=== PATIENT | male | born 1990 | race Caucasian/White ===

== ENCOUNTER 2018-10-27 14:26 | Emergency (ER) | payer MEDICAID, SELFPAY ==
--- NOTE | 2018-10-27 14:33 | DI.CT_ITS ---
SYMPTOMS/DIAGNOSIS: TRAUMA CRANIAL CT (WITHOUT CONTRAST): A noncontrast cranial CT was performed. The ventricular system is normal in appearance. There is no evidence of an intracranial mass lesion. There is no evidence of a subdural or epidural hematoma. No focal areas of decreased attenuation are seen. CONCLUSION: Normal noncontrast Cranial CT. CERVICAL SPINE CT: CT examination of the cervical spine was performed utilizing multi-slice acquisition and multi-planar reconstruction. Incidental note is made of multiple mildly enlarged lymph nodes bilaterally throughout the cervical region. No gross cervical disc herniation by CT criteria. The visualized lung apices are clear. The tracheolaryngeal structures appear intact. No evidence of cervical fracture or dislocation. CONCLUSION: No evidence of acute cervical injury. CHEST, ABDOMEN AND PELVIS CT: CT examination of the chest, abdomen and pelvis was performed during the intravenous infusion of Omnipaque 350. The tracheobronchial tree and esophagus appear intact. The mediastinal vascular structures are normal in appearance. There is no evidence of hilar or mediastinal adenopathy. The pulmonary parenchyma and pleurae appear intact with no evidence of a pulmonary or pleural mass. The chest wall is normal in appearance. The liver and spleen are normal in size and shape with no evidence of any focal defects. There is no evidence of biliary dilatation. The gallbladder has a normal CT appearance. The pancreas appears intact and is not enlarged. There is no evidence of retroperitoneal lymphadenopathy. The bladder appears intact. The kidneys show bilateral function and there is no evidence of a renal mass. The vascular structures appear intact. There is no evidence of a mass in the pelvis. There is no evidence of a fluid collection or adenopathy. CONCLUSION: Normal chest, abdomen and pelvis CT.
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
[2018-10-27 14:34] VITALS: BP 116/84; PULSE 83; RESP 96; TEMP 36.8; O2SAT 97
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
[2018-10-27 14:54] LABS: Abs Immature Grans 0.01 k/cumm (0.0-0.09); Absolute Basophil Count 0.02 k/cumm (0.0-0.2); Absolute Eosinophil Count 0.13 k/cumm (0.0-0.7); Absolute Lymphocyte Count 2.98 k/cumm (1.2-3.4); Absolute Neutrophil Count 4.43 k/cumm (1.2-6.7); Basophils % 0.2; Eosinophils % 1.6; HCT 38.6 % (40.0-50.0); HGB 13.3 g/dL (13.5-17.5); Immature Grans % 0.1; Lymphocytes % 36.5; Mean Corp. HGB Concentration 34.5 g/dL (32.0-36.0); Mean Corpuscular Hemoglobin 32.2 pg (27.0-33.0); Mean Corpuscular Volume 93.5 fL (80-95); Mean Platelet Volume 10.2 fL (8.0-11.0); Monocytes % 7.3; Neutrophils % 54.3; Platelet Count 218 x1000/uL (130-400); RBC 4.13 m/cumm (4.50-6.00); White Blood Cell Count 8.17 k/cumm (4.4-10.8)
[2018-10-27 15:07] LABS: ALT 15 U/L (12-78); AST 13 U/L (15-37); Albumin 3.6 g/dL (3.4-5.0); Alkaline Phosphatase 70 U/L (46-116); Anion Gap 7.4 mmol/L (3-11); BUN 13 mg/dL (7-18); Bilirubin, Total 0.2 mg/dL (0.2-1.0); CO2 30.6 mmol/L (21.0-32.0); CREATININE 1.08 mg/dL (0.70-1.30); Calcium 8.9 mg/dL (8.5-10.1); Chloride 101 mmol/L (98-107); Glucose 89 mg/dL (70-100); Potassium 3.8 mmol/L (3.5-5.1); Sodium 139 mmol/L (136-145); Total Protein 6.8 g/dL (6.4-8.2)
[2018-10-27] MEDS: Omnipaque 350 MG/ML 100 ML BTL IJ (15:11)
[2018-10-27] MEDS: Ondansetron 4 MG/2 ML VIAL IVP (15:20)
[2018-10-27] MEDS: Ketorolac 30 MG/ML VIAL IVP (15:21)
[2018-10-27 15:46] LABS: ETHANOL BLOOD < 3.0 mg/dL (<3)
[2018-10-27 16:13] VITALS: BP 116/84; PULSE 83; RESP 96; TEMP 36.8
== END 2018-10-27 16:27 | disposition home or self-care (01) ==
PROVIDERS: Emergency Provider Nurse Practitioner Family; PCP Family Medicine
DX: S06.0X0A Concussion without loss of consciousness, initial encounter (principal); M54.2 Cervicalgia; V44.5XXA Car driver injured in collision with heavy transport vehicle or bus in traffic accident, initial encounter
CPT/HCPCS: 36415; 74177; 80053; 96374; 96375; 99285; 70450; 71260; 72125; 80320; 85025; 99284; J1885; J2405; J3490

== ENCOUNTER 2019-11-01 15:08 | Emergency (ER) | payer MEDICAID, SELFPAY ==
[2019-11-01] VITALS (23 sets, daily range): BP systolic 116–121; BP diastolic 76–78; PULSE 68–101; RESP 8–23; TEMP 36.7; O2SAT 94–99
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
[2019-11-01 15:29] LABS: Abs Immature Grans 0.02 k/cumm (0.0-0.09); Absolute Basophil Count 0.04 k/cumm (0.0-0.2); Absolute Eosinophil Count 0.02 k/cumm (0.0-0.7); Absolute Lymphocyte Count 2.05 k/cumm (1.2-3.4); Absolute Monocyte Count 0.51 k/cumm (0.11-0.7); Absolute Neutrophil Count 5.17 k/cumm (1.2-6.7); Basophils % 0.5; Eosinophils % 0.3; HCT 47.1 % (40.0-50.0); Immature Grans % 0.3 %; Lymphocytes % 26.2; Mean Corpuscular Hemoglobin 29.8 pg (27.0-33.0); Mean Corpuscular Volume 87.7 fL (80-95); Mean Platelet Volume 10.2 fL (8.0-11.0); Monocytes % 6.5; Neutrophils % 66.2; Platelet Count 233 x1000/uL (130-400); RBC 5.37 m/cumm (4.50-6.00); RBC Distribution Width 13.9 % (11.8-14.1); White Blood Cell Count 7.81 k/cumm (4.4-10.8)
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
[2019-11-01 15:37] LABS: Bilirubin Small (Negative); Blood Negative (Negative); Clarity Clear (Clear); Glucose Negative (Negative); Ketones 15 mg/dL (Negative); Leukocyte Esterase Negative (Negative); Nitrite Negative (Negative); Specific Gravity 1.025 (1.005-1.025); pH 6.5 (5-8)
[2019-11-01 15:41] LABS: Lipase 80 U/L (73-393)
[2019-11-01 15:43] LABS: INR 1.1 (0.9-1.1); PTT Activated 27.1 sec (21.0-31.4); Prothrombin Time 10.8 sec (9.3-11.0)
[2019-11-01 15:46] LABS: *AMPHETAMINES SCREEN URINE Negative (Negative); *BARBITURATES SCREEN URINE Negative (Negative); *BENZODIAZEPINES SCREEN URINE Negative (Negative); Cannabinoids THC POSITIVE (Negative); Cocaine Screen,Urine POSITIVE (Negative); METHADONE URINE SCREEN POSITIVE (Negative); OPIATES URINE SCREEN Negative (Negative)
[2019-11-01 15:46] LABS: ALT 23 U/L (16-63); AST 21 U/L (15-37); Albumin 4.5 g/dL (3.4-5.0); Alkaline Phosphatase 92 U/L (46-116); Anion Gap 13.1 mmol/L (3-11); BUN 17 mg/dL (7-18); Bilirubin, Total 0.5 mg/dL (0.2-1.0); CO2 29.9 mmol/L (21.0-32.0); CREATININE 1.37 mg/dL (0.70-1.30); Calcium 9.2 mg/dL (8.5-10.1); Chloride 98 mmol/L (98-107); Glucose 117 mg/dL (74-106); Potassium 4.2 mmol/L (3.5-5.1); Sodium 141 mmol/L (136-145); Total Protein 8.3 g/dL (6.4-8.2)
[2019-11-01 15:47] LABS: Tricyclic Antidepressants Negative (Negative)
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
[2019-11-01 15:56] LABS: ETHANOL BLOOD < 3.0 mg/dL (<3)
[2019-11-01] MEDS: Omnipaque 350 MG/ML 100 ML BTL IJ (15:56)
[2019-11-01 15:57] LABS: Bacteria Few HPF (Negative); C & S Indicated? No; Casts Negative LPF (Negative); Crystals Negative HPF (Negative); Epithelial Cells Few HPF (Negative); Mucus Moderate (Negative)
[2019-11-01] MEDS: Normal Saline 1,000 ML 1000 ML IV (16:05)
[2019-11-01] MEDS: Acetaminophen 500 MG TAB 1000 MG PO (17:15)
[2019-11-01] MEDS: Ibuprofen 800 MG TAB PO (17:16)
[2019-11-01] MEDS: Lidocaine 5% Patch 1 PATCH TP (17:16)
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
== END 2019-11-01 18:39 | disposition home or self-care (01) ==
PROVIDERS: Emergency Provider Student in an Organized Health Care Education/Training Program; PCP Family Medicine
DX: S01.01XA Laceration without foreign body of scalp, initial encounter (principal); S22.070A Wedge compression fracture of T9-T10 vertebra, initial encounter for closed fracture; V44.5XXA Car driver injured in collision with heavy transport vehicle or bus in traffic accident, initial encounter; R40.20 Unspecified coma; M54.2 Cervicalgia
CPT/HCPCS: 12001; 36415; 74177; 80053; 80307; 83690; 96360; 99285; 70450; 71260; 72125; 80320; 81003; 81015; 85025; 85610; 85730; J3490

== ENCOUNTER 2020-02-29 11:13 | Outpatient (REF) | payer MEDICAID, SELFPAY ==
[2020-02-29 12:18] LABS: ALT 21 U/L (16-63); AST 26 U/L (15-37); Albumin 4.2 g/dL (3.4-5.0); Alkaline Phosphatase 96 U/L (46-116); BUN 11 mg/dL (7-18); Bilirubin, Total 0.4 mg/dL (0.2-1.0); CREATININE 1.29 mg/dL (0.70-1.30); Chloride 102 mmol/L (98-107); Glucose 84 mg/dL (74-106); Potassium 4.9 mmol/L (3.5-5.1); Sodium 138 mmol/L (136-145); Total Protein 7.3 g/dL (6.4-8.2)
[2020-02-29 12:26] LABS: Absolute Basophil Count 0.02 k/cumm (0.0-0.2); Absolute Eosinophil Count 0.16 k/cumm (0.0-0.7); Absolute Lymphocyte Count 3.42 k/cumm (1.2-3.4); Absolute Monocyte Count 0.66 k/cumm (0.11-0.7); Absolute Neutrophil Count 3.14 k/cumm (1.2-6.7); Basophils % 0.3; Eosinophils % 2.2; HCT 43.1 % (40.0-50.0); HGB 14.6 g/dL (13.5-17.5); Lymphocytes % 46.2; Mean Corp. HGB Concentration 33.9 g/dL (32.0-36.0); Mean Corpuscular Hemoglobin 30.9 pg (27.0-33.0); Mean Corpuscular Volume 91.1 fL (80-95); Monocytes % 8.9; Neutrophils % 42.4; Platelet Count 249 x1000/uL (130-400); RBC 4.73 m/cumm (4.50-6.00); RBC Distribution Width 13.8 % (11.8-14.1)
[2020-03-01 11:02] LABS: HIV-1/2 Ag & Ab Screen Negative (Negative)
[2020-03-03 09:57] LABS: Hepatitis B Surface Ag Negative (Negative)
[2020-03-03 10:59] LABS: Hepatitis C Ab w Rflx HCV PCR Negative (Negative)
[2020-03-03 14:49] LABS: Syphilis Serology (RPR) Negative (Negative)
== END 2020-02-29 11:33 ==
LOC: LBN 11:13
PROVIDERS: PCP Family Medicine; Visit Provider Nurse Practitioner Family
DX: F11.20 Opioid dependence, uncomplicated (principal); Z79.899 Other long term (current) drug therapy; Z11.3 Encounter for screening for infections with a predominantly sexual mode of transmission; Z11.4 Encounter for screening for human immunodeficiency virus [HIV]; Z11.59 Encounter for screening for other viral diseases
CPT/HCPCS: 36415; 80053; 85027; 86803; 87340; 87389; 82105; 82140; 84630; 85025; 85610; 86592

== ENCOUNTER 2023-07-08 18:25 | Emergency (ER) | payer MEDICAID, SELFPAY ==
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
[2023-07-08 18:29] VITALS: BP 125/93; PULSE 103; RESP 16; TEMP 36.9; O2SAT 98
[2023-07-08] MEDS: Ibuprofen 600 MG TAB PO (19:01)
[2023-07-08] MEDS: Doxycycline Hyclate 100 MG CAP PO (19:01)
== END 2023-07-08 19:01 | disposition home or self-care (01) ==
PROVIDERS: Emergency Provider Emergency Medicine; PCP Family Medicine
DX: L03.114 Cellulitis of left upper limb (principal)
CPT/HCPCS: 76882; 99284

== ENCOUNTER 2024-04-06 11:14 | Emergency (ER) | payer MEDICAID, SELFPAY ==
[2024-04-06 11:25] VITALS: BP 110/74; PULSE 89; RESP 16; TEMP 37; O2SAT 97
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
== END 2024-04-06 13:04 | disposition home or self-care (01) ==
PROVIDERS: Emergency Provider Physician Assistant; PCP Family Medicine
DX: L97.828 Non-pressure chronic ulcer of other part of left lower leg with other specified severity (principal); L53.9 Erythematous condition, unspecified; F19.10 Other psychoactive substance abuse, uncomplicated; F17.210 Nicotine dependence, cigarettes, uncomplicated
CPT/HCPCS: 99283

== ENCOUNTER 2024-11-18 11:15 | Emergency (ER) | payer MEDICAID, SELFPAY ==
[2024-11-18 11:26] VITALS: BP 123/81; PULSE 86; RESP 16; TEMP 36.5; O2SAT 97
[2024-11-18 11:30] VITALS: BP 123/81; PULSE 86; RESP 16; TEMP 36.5; O2SAT 97
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
== END 2024-11-18 12:05 | disposition home or self-care (01) ==
PROVIDERS: Emergency Provider Emergency Medicine; PCP Family Medicine
DX: L03.211 Cellulitis of face (principal); I10 Essential (primary) hypertension; F17.210 Nicotine dependence, cigarettes, uncomplicated
CPT/HCPCS: 99283

== ENCOUNTER 2025-02-20 13:32 | Emergency (ER) | payer MEDICAID, SELFPAY ==
[2025-02-20 13:43] VITALS: BP 105/73; PULSE 71; RESP 20; TEMP 36.6; O2SAT 98
--- NOTE | 2025-02-20 13:45 | DI.RAD_ITS ---
Exam(s) XR ANKLE RT COMPLETE XR FOOT RT COMPLETE EXAM: XR ANKLE RT COMPLETE CLINICAL HISTORY: lateral pain and swelling. TECHNIQUE: 2D digital imaging was performed. Three views of the ankle and foot. COMPARISON: CR RIGHT TIB/FIB from 05/06/2015 CR XR FOOT RT COMPLETE from 02/20/2025 FINDINGS: BONES: Nondisplaced oblique fracture through the lateral malleolus. No additional fractures are iden tified in the ankle or foot.. No bony destructive lesion is seen. JOINTS: The ankle mortise is normally aligned. SOFT TISSUE: Swelling around the malleoli, greater laterally. IMPRESSION: Nondisplaced fracture of the lateral malleolus. No ankle mortise widening. No foot fractures. DATA REPOSITORY: RADIATION DOSE DELIVERED:
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
[2025-02-20] MEDS: Ibuprofen 600 MG TAB PO (14:00)
[2025-02-20] MEDS: Acetaminophen 500 MG TAB 1000 MG PO (14:00)
== END 2025-02-20 15:11 | disposition home or self-care (01) ==
PROVIDERS: Emergency Provider Emergency Medicine; PCP Family Medicine
DX: S82.64XA Nondisplaced fracture of lateral malleolus of right fibula, initial encounter for closed fracture (principal); X58.XXXA Exposure to other specified factors, initial encounter
CPT/HCPCS: 99284; 99283; 29505; 73610; 73630

== ENCOUNTER 2025-04-10 10:43 | Inpatient (IN) | payer MEDICAID, SELFPAY ==
[2025-04-10] VITALS (26 sets, daily range): BP systolic 106–140; BP diastolic 65–86; PULSE 72–100; RESP 17–34; TEMP 37.2–38.9; O2SAT 82–99
--- NOTE | 2025-04-10 11:15 | DI.RAD_ITS ---
Exam(s) XR ANKLE RT COMPLETE EXAM: XR ANKLE RT COMPLETE CLINICAL HISTORY: pain lateral, recent fx, fell today, ? refracture. TECHNIQUE: 2D digital imaging was performed of the right ankle. Three images were obtained. AP, lateral and oblique views were obtained. COMPARISON: CR XR ANKLE RT COMPLETE from 02/20/2025 FINDINGS: BONES: There is again seen a distal right fibular fracture. There has been some widening and posterior and lateral displacement of the fracture compared to the initial examination. Callus formation has developed about the fracture consistent with some interval healing. No new fractures identified. No bony destructive lesion is seen. JOINTS: The ankle mortise is normally aligned. SOFT TISSUE: There is mild soft tissue swelling about the ankle laterally. IMPRESSION: Healing distal right fibular fracture. DATA REPOSITORY: RADIATION DOSE DELIVERED:
[2025-04-10] MEDS: Acetaminophen 325 MG TAB 650 MG PO (11:29)
[2025-04-10] MEDS: Cephalexin 500 MG CAP PO (11:30)
[2025-04-10] MEDS: Sulfameth/Trimeth DS TAB 1 TAB PO (11:30)
[2025-04-10] MEDS: MORPHine IR 15 MG TAB 30 MG PO (11:34)
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
[2025-04-10 13:45] LABS: Abs Immature Grans 0.12 10^3/uL (0.0-0.06); HCT 39.4 % (40.0-50.0); HGB 13.2 g/dL (13.5-17.5); Immature Grans % 0.7 %; MCH 30.6 pg (27.0-33.0); MCHC 33.5 % (32.0-36.0); MCV 91 fL (80-95); MPV 11.4 fL (8.0-11.0); Platelet Count 279 10^3/uL (130-400); RBC 4.31 10^6/uL (4.36-5.78); RDW 14.6 % (11.8-14.1); RDW-SD 49.4 fL; WBC 17.75 10^3/uL (4.4-10.8)
[2025-04-10 13:56] LABS: ALT 728 U/L (16-63); AST 212 U/L (15-37); Albumin 3.2 g/dL (3.4-5.0); Alkaline Phosphatase 347 U/L (46-116); Anion Gap 11.5 mmol/L (3-11); BUN 15 mg/dL (7-18); Bilirubin, Total 1.3 mg/dL (0.2-1.0); CO2 26.5 mmol/L (21.0-32.0); Calcium 9.2 mg/dL (8.5-10.1); Chloride 94 mmol/L (98-107); Estimated GFR 81.38 (mL/min/1.73m2); Glucose 107 mg/dL (74-106); Potassium 3.7 mmol/L (3.5-5.1); Sodium 132 mmol/L (136-145); Total Protein 7.2 g/dL (6.4-8.2)
[2025-04-10] MEDS: Ketorolac 15 MG/ML VIAL IVP (14:11)
[2025-04-10] MEDS: Lactated Ringers 500 ML 1000 ML IV (14:11)
[2025-04-10 14:26] LABS: RBC Morphology Normal
[2025-04-10] MEDS: VANCOMYCIN/WATER (PEG) 1.25 GM/250 ML BAG IVPB (15:13)
[2025-04-10 15:17] LABS: Acetaminophen 2 ug/mL (10-30)
[2025-04-10] MEDS: Enoxaparin 40 MG/0.4 ML SYR SC (16:18)
--- NOTE | 2025-04-10 17:08 | W.PC.ACHO ---
Registration Status: REG ER Primary Language: Preferred Language: German ED Information & Data Chief Complaint Fever 04/10/25 12:56 Other Complaint Orthopedic 04/10/25 10:43 Triage Note Pt presents via [facility] from 04/10/25 10:43 home. Rt ankle injury from a fall, R ear also infected. Medical / Surgical History (Last Reviewed 04/10/25 @ 14:29 by Baljinder Monson MD) Frequent headaches Tobacco use Anxiety Hypertension Insomnia Most Recent Vital Signs Temperature 37.2 C 04/10/25 15:53 Temperature Source Oral 04/10/25 15:53 Pulse 82 04/10/25 15:53 Pulse Rhythm Regular 04/10/25 15:53 Pulse 99 H 04/10/25 11:20 Respiratory Rate 25 H 04/10/25 12:28 Blood Pressure 119/84 04/10/25 15:53 Blood Pressure Mean 95 04/10/25 15:53 Blood Pressure Position Supine 04/10/25 10:43 Pulse Oximetry 82 L 04/10/25 15:53 Oxygen Delivery Method Room Air 04/10/25 10:43 Oxygen Flow Rate 0 04/10/25 10:43 Pain Level 6 04/10/25 15:53 Allergies No Known Allergies Allergy (Unverified 04/10/25 10:48) Precautions Isolation Standard precaution 04/10/25 10:48 Active Medications Generic Name Dose Route Start Last Admin Trade Name Freq PRN Reason Stop Dose Admin Enoxaparin Sodium 40 mg 04/10/25 16:00 04/10/25 16:18 Enoxaparin 40 Mg/0.4 Ml Syr SC 40 mg Q24H DEVANG Administration IV IV Catheter Type [Right Saline Lock Forearm] IV Catheter Type [Left Saline Lock Antecubital] IV Catheter Gauge [Right 18 Forearm] IV Catheter Gauge [Left 18 Antecubital] Diet Orders Category Date Time Status Regular/Normal [DIET] Nutrition 04/10/25 Dinner Active Diagnostics 04/10/25 04/10/25 04/10/25 Range/Units 14:34 13:56 10:52 WBC 17.75 H (4.4-10.8) 10^3/uL RBC 4.31 L (4.36-5.78) 10^6/uL Hgb 13.2 L (13.5-17.5) g/dL Hct 39.4 L (40.0-50.0) % MCV 91 (80-95) fL MCH 30.6 (27.0-33.0) pg MCHC 33.5 (32.0-36.0) % RDW 14.6 H (11.8-14.1) % Plt Count 279 (130-400) 10^3/uL MPV 11.4 H (8.0-11.0) fL Immature Gran % 0.7 % Neutrophils % 81.5 % Lymphocytes % 7.4 % Monocytes % 9.5 % Eosinophils % 0.7 % Basophils % 0.2 % Nucleated RBC % 0.0 (0.0-0.3) % Absolute Neutrophils 14.47 H (1.2-6.7) 10^3/uL Absolute Lymphocytes 1.31 (1.2-3.4) 10^3/uL Absolute Monocytes 1.69 H (0.1-0.8) 10^3/uL Absolute Eosinophils 0.12 (0.0-0.7) 10^3/uL Absolute Basophils 0.04 (0.0-0.2) 10^3/uL RBC Morphology Normal VBG Lactate 1.3 (<or=2.0) mmol/L Sodium 132 L (136-145) mmol/L Potassium 3.7 (3.5-5.1) mmol/L Chloride 94 L (98-107) mmol/L Carbon Dioxide 26.5 (21.0-32.0) mmol/L Anion Gap 11.5 H (3-11) mmol/L BUN 15 (7-18) mg/dL Creatinine 1.2 (0.70-1.30) mg/dL Est GFR (CKD-EPI 2020) 81.38 (mL/min/1.73m2) Glucose 107 H (74-106) mg/dL Calcium 9.2 (8.5-10.1) mg/dL Total Bilirubin 1.3 H (0.2-1.0) mg/dL AST 212 H (15-37) U/L ALT 728 H (16-63) U/L Alkaline Phosphatase 347 H (46-116) U/L Total Protein 7.2 (6.4-8.2) g/dL Albumin 3.2 L (3.4-5.0) g/dL Acetaminophen 2 (10-30) ug/mL Hepatitis A IgM Ab Pending Hep Bs Antigen Pending Hep B Core Total Ab Pending Hepatitis C Antibody Pending 04/10/25 10:52 Blood Culture - Pending Blood 04/10/25 11:15 Blood Culture - Pending Blood Intake and Output - 24 Hour Total 04/10/25 10:30 thru 04/10/25 16:52 Intake Total 750 Balance 750 Weight 67.177 kg Intake: IV 750 Falls Risk Assessment History of Falls No History 04/10/25 10:48 Contributing Factors No Factors 04/10/25 10:48 Ambulatory Aids Independent 04/10/25 10:48 Tubes/Lines W/no contributing factors 04/10/25 10:48 Gait Evaluation No gait disturbance 04/10/25 10:48 Cognition No cognitive impairment 04/10/25 10:48 Fall Total Score 10 04/10/25 10:48 Level of Risk Standard/Low Risk 04/10/25 10:48 v v v v v v v v v Sending and/or Receiving Nurses: Please use comment section below to note any information pertinent to the patient hand-off not included above. Information / Comments: Report received all questions answered. Report received from: report received from Yusuf Olmos, RN @ [id number]
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
[2025-04-10] MEDS: Acetaminophen 325 MG TAB PO (20:08)
[2025-04-10] MEDS: Normal Saline Flush 10 ML SYR IVP (20:09)
--- NOTE | 2025-04-10 20:15 | RT.EKG_ITS ---
APPROVED REPORT Exam: Resting ECG Reason for Exam: chest pain Patient Location: I HR:97 bpm ECG Measurements Heart Rate 97 AXIS ND 119 P 47 QRSd 94 QRS 77 QT 381 T 6 QTc 484 Conclusion Sinus rhythm...normal P axis, V-rate 50- 99 Borderline short ND interval...ND int <120mS LVH by voltage...R >2.60mV in V5 or V6 Borderline T abnormalities, inferior leads...T flat/neg, II III aVF
[2025-04-10] MEDS: cefTRIAXone 1 GM/50 ML BAG IVPB (20:54)
[2025-04-10] MEDS: ACETAMINOPHEN 1,000 MG/100 ML BAG 400 MG IVPB (20:54)
--- NOTE | 2025-04-10 20:57 | DI.RAD_ITS ---
Exam(s) XR PORTABLE CHEST AP EXAM: XR PORTABLE CHEST AP CLINICAL HISTORY: chest pain/sepsis TECHNIQUE: 2D digital imaging was performed of the chest. One image was obtained. An AP view was obtained. COMPARISON: No exams were available for comparison FINDINGS: MEDIASTINUM: Normal. HEART: Normal. PULMONARY VASCULATURE: Normal. LUNGS: There opacity seen in the right mid lung laterally and the left lung base. PLEURAL SPACE: No pleural effusion or pneumothorax. BONE:Within normal limits for the patient's age. OTHER FINDINGS:Normal. IMPRESSION: 1. Bilateral pulmonary opacities. There is a more rounded opacity seen in the right mid lung. While this may represent an infectious process, pulmonary mass cannot be entirely excluded. Follow-up with repeat chest x-ray following treatment or CT scan of the chest. 2. The preliminary [facility] report was reviewed. DATA REPOSITORY: RADIATION DOSE DELIVERED:
[2025-04-10 21:15] LABS: Troponin I 4 ng/L (<or=76)
[2025-04-10 21:16] LABS: METHADONE URINE SCREEN Negative (Negative)
[2025-04-10 21:39] LABS: Cannabinoids THC Positive (Negative)
--- NOTE | 2025-04-10 22:02 | DI.[facility]_ITS ---
PROCEDURE INFORMATION: Exam: XR Chest Exam date and time: 04/10/2025 8:50 PM Age: 34 years old Clinical indication: Chest pressure; Chest pain/sepsis TECHNIQUE: Imaging protocol: Radiologic exam of the chest. Views: 1 view. COMPARISON: CT CHEST/ABD/PEL W 11/01/2019 3:47 PM FINDINGS: Lungs: Ill-defined opacity identified in the right mid lung with a an underlying mass not excluded. CT scan of the chest is recommended for further evaluation. Left basilar discoid atelectatic changes. Pleural spaces: Unremarkable. No pleural effusion. No pneumothorax. Heart/Mediastinum: Unremarkable. No cardiomegaly. Bones/joints: Unremarkable. IMPRESSION: 1. Ill-defined oval opacity identified in the right mid lung with a an underlying mass not excluded. CT scan of the chest is recommended for further evaluation. 2. Left lower lobe discoid atelectatic changes. Dictated and Authenticated by: Gera Brewer MD. Orderin Luciano Wilson MD
[2025-04-10 23:38] LABS: Hepatitis A Antibody IgM Negative (Negative); Hepatitis C Ab w Rflx HCV PCR Reactive (Negative)
--- NOTE | 2025-04-11 | DI.RAD_ITS ---
Exam(s) XR MASTOIDS EXAM: XR MASTOIDS CLINICAL HISTORY: mastoiditis right. TECHNIQUE: 2D digital imaging was performed. COMPARISON: No exams were available for comparison FINDINGS: 3 views There are no obvious mastoid effusions. No obvious bone dehiscence. IMPRESSION: No obvious radiographic findings in the mastoid air cells. If clinically indicated follow-up CT scan can be performed for added sensitivity Findings discussed with hospitalist provider 04/11/2025 at 6:20 p.m. DATA REPOSITORY: RADIATION DOSE DELIVERED:
--- NOTE | 2025-04-11 | DI.CT_ITS ---
Exam(s) CT CHEST WO EXAM: CT CHEST WO CLINICAL HISTORY: right mid lung opacity mass. TECHNIQUE: Multi planar reconstructions were performed. CONTRAST MATERIAL: None COMPARISON: CT CT CHEST/ABD/PEL W from 11/01/2019 CR,XR XR PORTABLE CHEST AP from 04/10/2025 FINDINGS: CHEST: LUNGS: There are multiple bilateral nodular infiltrates involving all lobes of both lungs with the exception of sparing of the right middle lobe. Many of these are located peripherally-pleural based and most exhibits some cavitation. The largest is in the left lower lobe, measures 3.3 x 2.8 by 2.8 cm and exhibits internal cavitation, similar to multiple others seen in both lung balderas. There are no associated pleural effusions. No significant focal findings in the trachea and mainstem bronchi and there is no bronchiectasis. MEDIASTINUM: There is no obvious hilar nor mediastinal adenopathy evident on this noninfused study. No supraclavicular nor axillary adenopathy. CARDIAC: Heart size is normal. There is no pericardial effusion.Caliber of the thoracic aorta is within normal limits. VISUALIZED UPPER ABDOMEN: There is no ascites in the upper abdomen. No obvious adrenal masses nor splenomegaly. OSSEOUS: No fractures. There are no lytic nor blastic osseous lesions evident.The pleural based cavitated infiltrates are not associated with overlying rib destruction. IMPRESSION: 1. There are multiple similar appearing partially cavitated nodular infiltrates throughout both lungs, 1 of these corresponding to the finding described in the right lung on chest x-ray performed 04/10/2025. The largest is actually in the left lower lobe and is pleural based, measuring 33 x 28 x 28 mm. If clinically indicated this would be accessible for CT-guided biopsy by Interventional Radiology service. With respect to the etiology of these multiple bilateral nodular infiltrates, given their appearance and patient's age the etiology is most probably infectious, as opposed to neoplastic. Report called by myself to hospitalist 04/11/2025 at 6:15 p.m. RADIATION DOSE DELIVERED: 177.59mGy.cm Total DLP DATA REPOSITORY: All CT scans at this facility are submitted to the National Radiology Data Registry (NRDR) Dose Index Registry (DIR) with the [employer] (A[employer]). RADIATION OPTIMIZATION: All CT scans at this facility use at least one of these dose optimization techniques: automated exposure control; mA and/or kV adjustment per patient size (includes targeted exams where dose is matched to clinical indication); or iterative reconstruction.
[2025-04-11 00:48] VITALS: TEMP 37.7
[2025-04-11] MEDS: Ketorolac 15 MG/ML VIAL IVP ×3 (02:40→23:30)
--- NOTE | 2025-04-11 06:45 | PGE_ITS ---
Date of Service Date of service: 04/11/25 Time of Service: 11:15 Assessment and Plan Assessment and plan (1) Sepsis: Status: Acute Assessment and plan: On admission , the patient met sepsis criteria with a fever (38.5?C), elevated white blood cell count (17.75), tachycardia (pulse 94 bpm), elevated respiratory rate (32), and localized infection (right mastoid area /postauricular cellulitis). This is a likely case of sepsis stemming from cellulitis. Given the signs of systemic involvement, the patient requires aggressive management. -Trend WBC and inflammatory markers- further imaging if trending up -XR of mastoid bone and chest CT - As per results of new imaging discussed with Dr. Garcia at 18:11 today- will consider IR at [facility] consultation,ordering Quantiferon &HIV, consider contrast infused head CT and temporal bone CT - Continue vancomycin and Ceftriaxone. - Continue IV fluids (normal saline) to support circulatory volume. - Blood cultures: Monitor pending blood culture results to guide further antibiotic adjustments. -Close monitoring: Frequent reassessment of vital signs, including temperature, pulse, and respiratory rate. (2) Cellulitis of scalp: Status: Acute Assessment and plan: As above Surgical consult is abscess of the mastoid bone as per imaging (3) Closed fracture of distal end of right fibula: Status: Acute Assessment and plan: History of a right distal fibular fracture sustained a month ago. X-ray in the ED reveals healing with displacement and callus formation but no new fractures. He has reinjured the ankle with pain, swelling, and decreased ROM following a dog fight. -management with orthopedic boot and crutches. -Orthopedics follow-up outpatient for reassessment of fracture and appropriate management. -Encourage rest and avoid weight-bearing on the right ankle. PT consult (4) Abnormal transaminases: Status: Acute Assessment and plan: The patient?s laboratory results reveal elevated AST, ALT, alkaline phosphatase, and total bilirubin. The patient is not complaining of abdominal pa in, but the elevated transaminases may indicate either a hepatic injury related to sepsis or possibly a pre-existing liver issue (e.g., alcohol-related liver disease, hepatitis). -Hepatitis panel pending -Monitor LFT' s -Consultation: Consider hepatology/GI consultation for further evaluation if liver function worsens. -Continue supportive care: Maintain IV fluids and monitor for signs of hepatic failure (jaundice, confusion). (5) Pain: Status: Acute Assessment and plan: The patient reports significant pain (level 10/10) from his right ankle injury and cellulitis. -PRN Acetaminophen for mild to moderate pain. -Opioid analgesia: to be limited d/t Hx opioids misuse. Morphine IR was administered in the ED, but future use should be minimized. -IV Toradol: Continue IV Toradol for pain relief and anti-inflammatory effect. -Reassessment: Regularly assess pain control and adjust medications accordingly. (6) Opioid use disorder: Status: Acute Assessment and plan: The patient has a prior history of opioid use disorder, though he denies recent opioid use. Pain management will need to be carefully balanced with his history to avoid relapse into opioid misuse. Non-opioid pain management: Prioritize acetaminophen, NSAIDs (e.g., Toradol), and local modalities over opioids for pain control. Psychiatric consultation: outpatient referral with addiction psychiatry discussed with Dr. Rainey Subjective Subjective Patient reports: no new complaints, still having pain, tolerating liquids well, tolerating a regular diet (decreased intake ), voiding w/o difficulty, bowel movement and other (chills, night sweat, fatigue); denies feels better, diarrhea, nausea, vomiting, shortness of breath or fever Exam Narrative Exam Narrative: Right mastoid bone area lesion - scabbed over with tenderness, upper mastoid w/o tenderness, erythema and minimal fluid filled superficial blisters, alert and oriented X 3 , no neurological deficit, clear lungs, S1 S2 regular, abdomen non-distended, soft , non-tender, moves all 4 est, no CVA tenderness, Objective Last Vital Signs Temp 37.7 C H 04/11/25 00:48 Pulse 99 H 04/10/25 19:52 Resp 22 04/10/25 19:52 BP 106/66 04/10/25 19:52 Pulse Ox 97 04/10/25 19:52 Laboratory Results - last 24 hr 04/10/25 04/10/25 04/10/25 10:52 13:56 14:34 WBC 17.75 H RBC 4.31 L Hgb 13.2 L Hct 39.4 L MCV 91 MCH 30.6 MCHC 33.5 RDW 14.6 H Plt Count 279 MPV 11.4 H Immature Gran % 0.7 Neutrophils % 81.5 Lymphocytes % 7.4 Monocytes % 9.5 Eosinophils % 0.7 Basophils % 0.2 Nucleated RBC % 0.0 Absolute Neutrophils 14.47 H Absolute Lymphocytes 1.31 Absolute Monocytes 1.69 H Absolute Eosinophils 0.12 Absolute Basophils 0.04 RBC Morphology Normal VBG Lactate 1.3 Sodium 132 L Potassium 3.7 Chloride 94 L Carbon Dioxide 26.5 Anion Gap 11.5 H BUN 15 Creatinine 1.2 Est GFR (CKD-EPI 2020) 81.38 Glucose 107 H Calcium 9.2 Total Bilirubin 1.3 H AST 212 H ALT 728 H Alkaline Phosphatase 347 H Troponin I Total Protein 7.2 Albumin 3.2 L Urine Opiates Screen Urine Methadone Screen Acetaminophen 2 Ur Barbiturates Screen Ur Tricyclics Screen Ur Amphetamines Screen U Benzodiazepines Scrn Urine Cocaine Screen Ur THC Screen Hepatitis A IgM Ab Negative Hep Bs Antigen Negative Hep B Core Total Ab Negative Hepatitis C Antibody Reactive A 04/10/25 20:50 WBC RBC Hgb Hct MCV MCH MCHC RDW Plt Count MPV Immature Gran % Neutrophils % Lymphocytes % Monocytes % Eosinophils % Basophils % Nucleated RBC % Absolute Neutrophils Absolute Lymphocytes Absolute Monocytes Absolute Eosinophils Absolute Basophils RBC Morphology VBG Lactate Sodium Potassium Chloride Carbon Dioxide Anion Gap BUN Creatinine Est GFR (CKD-EPI 2020) Glucose Calcium Total Bilirubin AST ALT Alkaline Phosphatase Troponin I 4 Total Protein Albumin Urine Opiates Screen Positive Urine Methadone Screen Negative Acetaminophen Ur Barbiturates Screen Negative Ur Tricyclics Screen Negative Ur Amphetamines Screen Negative U Benzodiazepines Scrn Positive Urine Cocaine Screen Positive Ur THC Screen Positive Hepatitis A IgM Ab Hep Bs Antigen Hep B Core Total Ab Hepatitis C Antibody Time Spent with Patient Time Spent with Patient: >50 minutes Time was spent: preparing to see the patient(eg.review tests), obtaining and/or reviewing separately otained hiistory, ordering medications,tests, procedures, referring, communicating with other health care transport nurse, indepentently interpreting results, counseling the patient and care coordination
[2025-04-11 07:25] LABS: Abs Immature Grans 0.16 10^3/uL (0.0-0.06); HCT 39.7 % (40.0-50.0); HGB 13.9 g/dL (13.5-17.5); Immature Grans % 0.8 %; MCH 30.9 pg (27.0-33.0); MCHC 35.0 % (32.0-36.0); MCV 88 fL (80-95); MPV 11.2 fL (8.0-11.0); Platelet Count 314 10^3/uL (130-400); RBC 4.50 10^6/uL (4.36-5.78); RDW 14.8 % (11.8-14.1); RDW-SD 48.2 fL; WBC 20.07 10^3/uL (4.4-10.8)
[2025-04-11 07:35] LABS: RBC Morphology Normal
[2025-04-11 07:42] LABS: Anion Gap 12.2 mmol/L (3-11); BUN 15 mg/dL (7-18); C-Reactive Protein 24.12 mg/dL (<or=0.5); CO2 25.8 mmol/L (21.0-32.0); Calcium 8.9 mg/dL (8.5-10.1); Chloride 99 mmol/L (98-107); Estimated GFR 114.93 (mL/min/1.73m2); Glucose 111 mg/dL (74-106); Magnesium 2.1 mg/dL (1.8-2.4); Potassium 3.3 mmol/L (3.5-5.1); Sodium 137 mmol/L (136-145)
[2025-04-11] MEDS: Normal Saline Flush 10 ML SYR IVP ×2 (08:13→20:02)
[2025-04-11 08:20] VITALS: BP 101/64; PULSE 81; RESP 16; TEMP 38.1; O2SAT 99
[2025-04-11] MEDS: VANCOMYCIN/WATER (PEG) 1.25 GM/250 ML BAG IVPB (09:05)
[2025-04-11] MEDS: Normal Saline 1,000 ML 125 ML IV ×2 (09:06→16:58)
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
[2025-04-11 11:36] LABS: HCV RNA Detection Quantitative 5790000 IU/mL (Undetected); HCV RNA Qualitative Detected (Undetected)
[2025-04-11 11:43] VITALS: BP 107/80; PULSE 94; RESP 18; TEMP 37.6; O2SAT 94
[2025-04-11] MEDS: cloNIDine 0.1 MG TAB PO ×2 (13:10→20:03)
[2025-04-11 14:19] VITALS: BP 96/58; PULSE 98; RESP 18; TEMP 37.9; O2SAT 99
[2025-04-11] MEDS: Enoxaparin 40 MG/0.4 ML SYR SC (16:00)
[2025-04-11 16:27] LABS: Vancomycin, Random 8.9 ug/mL
[2025-04-11] MEDS: cefTRIAXone 1 GM/50 ML BAG IVPB (20:03)
[2025-04-11 20:04] VITALS: BP 116/77; PULSE 92; RESP 18; TEMP 37.5; O2SAT 98
[2025-04-11 23:33] VITALS: BP 98/60; PULSE 80; RESP 20; TEMP 38.1; O2SAT 97
--- NOTE | 2025-04-12 | DI.CT_ITS ---
Exam(s) CT HEAD WO/W EXAM: CT HEAD WO/W CLINICAL HISTORY: AMS. TECHNIQUE: Imaging Protocol: Axial computed tomography images with coronal and sagittal reformatted images were created and reviewed. A pre and postcontrast CT brain was performed. CONTRAST MATERIAL: Intravenous: Omnipaque 350 contrast volume:[address] HEAD CERVICAL SPINE WO from 11/01/2019 FINDINGS: Ventricles and Extra axial spaces: Normal in size and morphology for the patient's age. Hemorrhage: None. Cerebral parenchyma: There is a normal carbajal-white matter differentiation. No evidence of an acute territorial infarct or mass effect. Enhancement: No suspicious enhancement. Dale of Velásquez: Unremarkable. Midline shift: None. Brainstem/Cerebellum: Normal. Calvarium: Normal. Visualized Paranasal sinuses/Mastoids: Clear. Soft tissues: There is soft tissue swelling over the right parietal and temporal bone. No focal fluid collection is seen to suggest an abscess. IMPRESSION: 1. No acute intracranial process or enhancing lesion. 2. Soft tissue swelling over the right parietal zoroastrian bones. This may be secondary to trauma. Please correlate clinically. An infectious or inflammatory process should also be considered. No focal fluid collection is seen to suggest an abscess. RADIATION DOSE DELIVERED: 2,049.12mGy.cm Total DLP 2,049.12mGy.cm Total DLP DATA REPOSITORY: All CT scans at this facility are submitted to the National Radiology Data Registry (NRDR) Dose Index Registry (DIR) with the [employer] (ACR). RADIATION OPTIMIZATION: All CT scans at this facility use at least one of these dose optimization techniques: automated exposure control; mA and/or kV adjustment per patient size (includes targeted exams where dose is matched to clinical indication); or iterative reconstruction.
--- NOTE | 2025-04-12 | DI.CT_ITS ---
Exam(s) CT TEMPORAL BONE W EXAM: CT TEMPORAL BONE W CLINICAL HISTORY: mastoiditis right. TECHNIQUE: Imaging Protocol: Axial computed tomography images with coronal and sagittal reformatted images were created and reviewed. CONTRAST MATERIAL: Intravenous: Omnipaque 350 Contrast volume:100 COMPARISON: CT CT HEAD CERVICAL SPINE WO from 11/01/2019 FINDINGS: Right Temporal Bone: The cochlea, vestibule, vestibular and cochlear aqueduct are normal. The facial nerve canal is well maintained. The semicircular canals are unremarkable. There is no evidence of dehiscence. The internal auditory canal is within normal limits. The scutum and tegmen are within normal limits. There is no evidence of otosclerosis. The external auditory canal and mastoid air cells are normal. The carotid canal and jugular foramen are within normal limits. The temporomandibular joint is unremarkable. Left Temporal Bone: The cochlea, vestibule, vestibular and cochlear aqueduct are normal. The facial nerve canal is well maintained. The semicircular canals are unremarkable. There is no evidence of dehiscence. The internal auditory canal is within normal limits. The scutum and tegmen are within normal limits. There is no evidence of otosclerosis. The external auditory canal and mastoid air cells are normal. The carotid canal and jugular foramen are within normal limits. The temporomandibular joint is unremarkable. There is soft tissue swelling over the right parietal and temporal bones. No focal fluid collection is seen to suggest an abscess. Differential considerations include infection/inflammation or soft tissue injury. IMPRESSION: 1. Normal CT of the temporal bones. 2. No evidence of mastoiditis or otitis media. 3. Soft tissue swelling over the right parietal bone and temporal bone. This may represent infection/inflammation or soft tissue injury. Please correlate clinically. 4. No focal fluid collection is seen to suggest an abscess. RADIATION DOSE DELIVERED: 2,049.12mGy.cm Total DLP DATA REPOSITORY: All CT scans at this facility are submitted to the National Radiology Data Registry (NRDR) Dose Index Registry (DIR) with the [employer] (ACR). RADIATION OPTIMIZATION: All CT scans at this facility use at least one of these dose optimization techniques: automated exposure control; mA and/or kV adjustment per patient size (includes targeted exams where dose is matched to clinical indication); or iterative reconstruction.
[2025-04-12] MEDS: VANCOMYCIN/WATER (PEG) 1.25 GM/250 ML BAG IVPB ×2 (00:02→14:10)
[2025-04-12 04:39] VITALS: BP 102/70; PULSE 71; RESP 18; TEMP 37.6; O2SAT 99
[2025-04-12 07:07] LABS: Abs Immature Grans 0.10 10^3/uL (0.0-0.06); HCT 38.4 % (40.0-50.0); HGB 12.8 g/dL (13.5-17.5); Immature Grans % 0.5 %; MCH 29.2 pg (27.0-33.0); MCHC 33.3 % (32.0-36.0); MCV 88 fL (80-95); MPV 10.4 fL (8.0-11.0); Platelet Count 352 10^3/uL (130-400); RBC 4.38 10^6/uL (4.36-5.78); RDW 14.7 % (11.8-14.1); RDW-SD 47.8 fL; WBC 19.09 10^3/uL (4.4-10.8)
[2025-04-12 07:18] LABS: C-Reactive Protein 18.30 mg/dL (<or=0.5)
--- NOTE | 2025-04-12 09:24 | CMPROGNOTE_ITS ---
Date of service: 04/12/25 Time of Service: 09:24 Care Management Progress Note Progress Note Text Progress Note Text: Johnathon was lying in bed when CM met with him. His eyes were closed and he did not really engage with CM as he was not feeling well. Johnathon has been febrile and his WBC remains elevated at 19.09. He has been found to have multiple cavitary abscesses in his lungs as well as positive blood cultures which are growing MRSA. Because of the cavitary lung lesions and MRSA, Johnathon has been placed on both contact and airborne precautions until TB is ruled out. He is in a negative pressure room and N-95 respirators are required for entry. In addition, orders have been placed for a PICC line as well as for an Echocardiogram. Testing for HIV and Quantiferon gold have been sent out and are pending. Discharge Potential Discharge Needs: PCP F/U Appt Anticipated Barriers to Discharge: None Identified Patient/Family Education Needs: Review discharge instructions, discuss Ask Me Three Transportation: Private vehicle Plan: Anticipate that Johnathon will be discharged home medically cleared. Given his positive blood cultures and pulmonary abscesses, it is likely he will require prolonged IV antibiotic therapy. When he does discharge, he will follow up with his PCP and plan of care and transport with family. CM will follow and support discharge planning efforts. Social Determinants of Health Screening Social Determinants of health last assessed in clinic: 04/12/25 Will the Patient Participate in the Screening?: Yes Do you worry about having a steady place to live?: yes What is your living situation today?: I have housing today, but am worried about losing it Problems where you live: pests such as bugs, ants or mice, mold, oven or stove not working and unsafe sofia/stairs In the past 12 months, have you had to go without electric, gas, oil or water in your home?: yes 1. Within the past 12 months, we worried whether our food would run out before we got money to buy more.: Never true 2. Within the past 12 months, the food we bought just didn't last and we didn't have money to get more.: Never true Has lack of transportation kept you from medical appointments or from doing things needed for daily living?: yes Has anyone in your life made you feel unsafe or unsupported?: yes How often does anyone, including family and friends, physically hurt you?: Never How often does anyone, including family and friends, insult or talk down to you?: Sometimes How often does anyone, including family and friends, threaten you with harm?: Never How often does anyone, including family and friends, scream or curse at you?: Never HRSN Safety total score: 6 How hard is it for you to pay for the very basics like food, housing, medical care, and heating? Would you say it is:: Somewhat hard Do you want help finding or keeping work or a job?: Yes, help finding work If for any reason you need help with day-to-day activities such as bathing, preparing meals, shopping, managing finances, etc., do you get the help you need?: I could use a little more help How often do you feel lonely or isolated from those around you?: Sometimes Do you speak a language other than Nauruan at home?: No Does the patient want assistance with any of the above?: No Health Related Social Needs Health related social needs: inadequate housing (Z59.1), housing instability, housed, with risk of homelessness (Z59.811), transportation insecurity (Z59.82), material hardship(utilities) (Z59.12), problems related to housing/economic circumstances (Z59.89), problems finding work (Z56.9), problems with daily activities (Z73.9) and feeling lonely/isolated (Z60.8) Health related social needs details: unsure of housing conditions that he will return to
[2025-04-12 09:27] VITALS: BP 101/66; PULSE 87; RESP 16; TEMP 36.5; O2SAT 97
[2025-04-12] MEDS: Normal Saline Flush 10 ML SYR IVP ×3 (10:18→18:36)
[2025-04-12] MEDS: cloNIDine 0.1 MG TAB PO ×2 (10:19→14:18)
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
[2025-04-12 10:53] VITALS: BP 106/68; PULSE 84; RESP 16; TEMP 38; O2SAT 97
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
[2025-04-12] MEDS: Acetaminophen 325 MG TAB PO (12:16)
--- NOTE | 2025-04-12 14:14 | PHA.REVIEW2 ---
Pharmacy Admission Review Admission Clinical Review Admission Pharmacy Review: Cavitary lesion of lung (Acute) MRSA bacteremia (Acute) Opioid use disorder (Acute) Pain (Acute) Abnormal transaminases (Acute) Sepsis (Acute) Cellulitis of scalp (Acute) Closed fracture of distal end of right fibula (Acute) No Known Allergies Allergy (Unverified 04/10/25 10:48) Resuscitation Status Full Code Height 5 ft 10 in Weight 67.177 kg Pharmacy Admission Review Renal Dosing Renal Dosing: BUN 15 mg/dL (7-18) 04/11/25 06:05 Creatinine 0.9 mg/dL (0.70-1.30) 04/11/25 06:05 Medications needing adjustments: Reviewed List of meds needing interventions: no adjustment needed Anticoagulation Anticoagulation: Hgb 12.8 g/dL (13.5-17.5) L 04/12/25 06:35 Hct 38.4 % (40.0-50.0) L 04/12/25 06:35 Plt Count 352 10^3/uL (130-400) 04/12/25 06:35 Creatinine 0.9 mg/dL (0.70-1.30) 04/11/25 06:05 DVT Prophylaxis: Reviewed Medications: Enoxaparin Opiate Usage Evaluate Pain Scale/Pains Meds: N/A Relevant Labs Relevant Labs: Sodium 137 mmol/L (136-145) 04/11/25 06:05 Potassium 3.3 mmol/L (3.5-5.1) L 04/11/25 06:05 Chloride 99 mmol/L (98-107) 04/11/25 06:05 Magnesium 2.1 mg/dL (1.8-2.4) 04/11/25 06:05 C-Reactive Protein 18.30 mg/dL (<or=0.5) H 04/12/25 06:35 Electrolytes, C-Reactive P, ESR: N/A (no labs from today) DM Control DM Control: no intervention needed. No history of DM; blood xgitibo=[id number]. DM Control: Reviewed Cardiac Review Cardiac Review: Troponin I 4 ng/L (<or=76) 04/10/25 20:50 BP, HR, EF%: Reviewed List meds needing interventions: no intervention needed. QTc Review QTc: N/A IV to PO Switch IV Medications: Reviewed Home Meds Home Med List reviewed: N/A Relevent Home Meds Not ordered & why?: no current home meds per external data review and med rec recorded. Current Meds Current Medication Order Review: Reviewed Pharmacy Antibiotic Review Relevant Labs: Relevant Labs 04/12/25 06:35 C-Reactive Protein 18.30 H Pharmacy Antibiotic Activity: 48 hour review (currently on vancomycin and ceftriaxone for sepsis secondary to cellulitis of mastoid bone. Cultures growing MRSA in blood; may discontinue ceftriaxone after head CT. ) Comments: Pt on vancomycin 1250mg q12h. Missed 04/12 0900 dose due to no line access; dose given late at 1400. Will check vancomycin trough on 04/13 @0100 (steady state level).
[2025-04-12] MEDS: Normal Saline - Diluent 50 ML VIAL IJ (15:42)
[2025-04-12] MEDS: Omnipaque 350 MG/ML 100 ML BTL IJ (15:43)
--- NOTE | 2025-04-12 16:04 | PT.INNT ---
PT Notes Visit Reasons: Cellulitis Not available after two attempts: attempted a second visit this afternoon twice but patient was down at CT scan earlier this afternoon and then had a cardiac echo in his room taht would finish after half an hour more.
[2025-04-12] MEDS: Normal Saline 1,000 ML 125 ML IV (16:43)
[2025-04-12] MEDS: Enoxaparin 40 MG/0.4 ML SYR SC (16:46)
[2025-04-12 16:48] VITALS: BP 91/58; PULSE 72; RESP 29; TEMP 37.2; O2SAT 98
[2025-04-12] MEDS: Ketorolac 15 MG/ML VIAL IVP (18:36)
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
[2025-04-15 09:39] LABS: HIV-1/2 Ag & Ab Screen Negative (Negative)
[2025-04-15 13:45] LABS: TB Interpretation Negative (Negative); TB1 Ag minus Nil 0.00 IU/mL; TB2 Ag minus Nil 0.00 IU/mL
== END 2025-04-12 19:50 | disposition left against medical advice (07) | DRG 872 ==
LOC: ER 13:27 → MS 17:13
PROVIDERS: Family Medicine; Nurse Practitioner Family; Admitting Provider Hospitalist; Emergency Provider Student in an Organized Health Care Education/Training Program; PCP Family Medicine; Responsible Provider Nurse Practitioner Acute Care; Visit Provider Hospitalist
DX: A41.02 Sepsis due to Methicillin resistant Staphylococcus aureus (principal); L03.811 Cellulitis of head [any part, except face]; L02.811 Cutaneous abscess of head [any part, except face]; Z59.811 Housing instability, housed, with risk of homelessness; R74.8 Abnormal levels of other serum enzymes; S82.831D Other fracture of upper and lower end of right fibula, subsequent encounter for closed fracture with routine healing; J98.4 Other disorders of lung; R74.01 Elevation of levels of liver transaminase levels; M25.571 Pain in right ankle and joints of right foot; F19.90 Other psychoactive substance use, unspecified, uncomplicated; G43.009 Migraine without aura, not intractable, without status migrainosus; F17.210 Nicotine dependence, cigarettes, uncomplicated; G47.00 Insomnia, unspecified; I10 Essential (primary) hypertension; F41.9 Anxiety disorder, unspecified; Z59.82 Transportation insecurity; Z59.87 Material hardship due to limited financial resources, not elsewhere classified; R45.89 Other symptoms and signs involving emotional state
CPT/HCPCS: 36410; 00123; 36415; 71250; 80048; 80053; 80307; 86704; 86709; 86803; 87040; 87077; 87340; 87389; 87522; 96361; 96365; 96366; 96372; 96375; 96376; 97161; 99285; J1650; 70130; 70460; 70470; 70481; 71045; 73610; 80202; 80329; 83605; 83735; 84484; 85025; 86140; 86480; 87070; 87186; 87205; 93005; 93010; 93306; 99222; 99233; 99238; G0378; J0131; J0696; J1885; J3373; J3490

== ENCOUNTER 2025-04-13 14:01 | Inpatient (IN) | payer MEDICAID, SELFPAY ==
[2025-04-13] VITALS (21 sets, daily range): BP systolic 92–114; BP diastolic 56–80; PULSE 72–92; RESP 13–22; TEMP 36.4–37.2; O2SAT 94–100
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
[2025-04-13 15:08] LABS: HCT 37.1 % (40.0-50.0); HGB 12.9 g/dL (13.5-17.5); MCH 30.8 pg (27.0-33.0); MCHC 34.8 % (32.0-36.0); MCV 89 fL (80-95); MPV 10.2 fL (8.0-11.0); Platelet Count 438 10^3/uL (130-400); RBC 4.19 10^6/uL (4.36-5.78); RDW 15.2 % (11.8-14.1); RDW-SD 49.7 fL; WBC 17.25 10^3/uL (4.4-10.8)
[2025-04-13] MEDS: Ketorolac 15 MG/ML VIAL IVP (15:17)
[2025-04-13] MEDS: cefTRIAXone 1 GM/50 ML BAG IVPB (15:18)
[2025-04-13] MEDS: Acetaminophen 500 MG TAB 1000 MG PO (15:18)
[2025-04-13] MEDS: Lactated Ringers 1,000 ML 1000 ML IV (15:20)
[2025-04-13 15:22] LABS: ALT 320 U/L (16-63); AST 141 U/L (15-37); Albumin 2.5 g/dL (3.4-5.0); Alkaline Phosphatase 421 U/L (46-116); Anion Gap 10.3 mmol/L (3-11); BUN 9 mg/dL (7-18); Bilirubin, Total 0.7 mg/dL (0.2-1.0); CO2 27.7 mmol/L (21.0-32.0); Calcium 8.6 mg/dL (8.5-10.1); Chloride 101 mmol/L (98-107); Estimated GFR 124.00 (mL/min/1.73m2); Glucose 110 mg/dL (74-106); Magnesium 2.0 mg/dL (1.8-2.4); Potassium 3.4 mmol/L (3.5-5.1); Sodium 139 mmol/L (136-145); Total Protein 6.9 g/dL (6.4-8.2)
[2025-04-13 15:37] LABS: RBC Morphology Normal
[2025-04-13] MEDS: VANCOMYCIN/WATER (PEG) 1.25 GM/250 ML BAG IVPB (15:56)
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
--- NOTE | 2025-04-13 17:05 | W.PC.ACHO ---
Registration Status: REG ER Primary Language: Preferred Language: Greek ED Information & Data Chief Complaint GenMedical 04/13/25 15:05 Triage Note was admitted here on med 04/13/25 14:25 surge for blood infection, pt has MRSA, awaiting TB results, pt has infection in heart and ankle, ankle is broken. pt left AMA yesterday Medical / Surgical History (Last Reviewed 04/10/25 @ 14:29 by Baljinder Monson MD) Frequent headaches Tobacco use Anxiety Hypertension Insomnia Most Recent Vital Signs Temperature 99.0 F 04/13/25 15:03 Temperature Source Tympanic 04/13/25 15:03 Pulse 82 04/13/25 16:50 Pulse 85 04/13/25 17:00 Respiratory Rate 21 04/13/25 17:00 Blood Pressure 114/60 04/13/25 16:46 Blood Pressure Mean 77 04/13/25 16:46 Blood Pressure Position Sitting 04/13/25 15:03 Pulse Oximetry 95 04/13/25 16:50 Oxygen Delivery Method Room Air 04/13/25 15:03 Oxygen Flow Rate 0 04/13/25 15:03 Pain Level 5 04/13/25 15:47 Comment pt appears calm and is playing on his phone 04/13/25 14:25 Allergies No Known Allergies Allergy (Unverified 04/13/25 14:31) Active Medications Generic Name Dose Route Start Last Admin Trade Name Mary PRN Reason Stop Dose Admin Vancomycin/PEG/NADA/Lysine/Water 1.25 gm in 250 mls @ 166.667 mls/hr 04/13/25 15:30 04/13/25 15:56 Vancocin Injection IVPB 166.667 mls/hr Q12H DEVANG Administration IV IV Catheter Type [Right Saline Lock Antecubital] IV Catheter Gauge [Right 18 Antecubital] Diagnostics 04/13/25 Range/Units 15:00 WBC 17.25 H (4.4-10.8) 10^3/uL RBC 4.19 L (4.36-5.78) 10^6/uL Hgb 12.9 L (13.5-17.5) g/dL Hct 37.1 L (40.0-50.0) % MCV 89 (80-95) fL MCH 30.8 (27.0-33.0) pg MCHC 34.8 (32.0-36.0) % RDW 15.2 H (11.8-14.1) % Plt Count 438 H (130-400) 10^3/uL MPV 10.2 (8.0-11.0) fL Immature Gran % See Differential Neutrophils % 75.0 % Band Neutrophils % 2 % Lymphocytes % 12.0 % Atypical Lymphs % 1 % Monocytes % 8.0 % Eosinophils % 1.0 % Basophils % 0.0 % Myelocytes % 1 Nucleated RBC % 0.0 (0.0-0.3) % Absolute Neutrophils 13.28 H (1.2-6.7) 10^3/uL Absolute Lymphocytes 2.24 (1.2-3.4) 10^3/uL Absolute Monocytes 1.38 H (0.1-0.8) 10^3/uL Absolute Eosinophils 0.17 (0.0-0.7) 10^3/uL Absolute Basophils 0.00 (0.0-0.2) 10^3/uL RBC Morphology Normal Sodium 139 (136-145) mmol/L Potassium 3.4 L (3.5-5.1) mmol/L Chloride 101 (98-107) mmol/L Carbon Dioxide 27.7 (21.0-32.0) mmol/L Anion Gap 10.3 (3-11) mmol/L BUN 9 (7-18) mg/dL Creatinine 0.7 (0.70-1.30) mg/dL Est GFR (CKD-EPI 2020) 124.00 (mL/min/1.73m2) Glucose 110 H (74-106) mg/dL Calcium 8.6 (8.5-10.1) mg/dL Magnesium 2.0 (1.8-2.4) mg/dL Total Bilirubin 0.7 (0.2-1.0) mg/dL AST 141 H (15-37) U/L ALT 320 H (16-63) U/L Alkaline Phosphatase 421 H (46-116) U/L Total Protein 6.9 (6.4-8.2) g/dL Albumin 2.5 L (3.4-5.0) g/dL 04/13/25 15:57 Blood Culture - Pending Blood 04/13/25 15:57 Blood Culture - Pending Blood Intake and Output - 24 Hour Total 04/13/25 14:01 thru 07/19/25 15:56 Intake Total 50 Balance 50 Weight 145 lb Intake: IV 50 Falls Risk Assessment History of Falls No History 04/13/25 14:31 Contributing Factors No Factors,Confusion 04/13/25 14:31 Tubes/Lines None 04/13/25 14:31 Gait Evaluation W/no contributing factors 04/13/25 14:31 Cognition No cognitive impairment 04/13/25 14:31 Fall Total Score 13 04/13/25 14:31 Level of Risk Standard/Low Risk 04/13/25 14:31 v v v v v v v v v Sending and/or Receiving Nurses: Please use comment section below to note any information pertinent to the patient hand-off not included above. Information / Comments: Report received from: Milla Steele RN
[2025-04-13] MEDS: Melatonin 3 MG TAB 9 MG PO (23:14)
[2025-04-13] MEDS: Acetaminophen 325 MG TAB 650 MG PO (23:15)
[2025-04-13] MEDS: cloNIDine 0.1 MG TAB PO (23:15)
[2025-04-13] MEDS: hydrOXYzine HCL 50 MG TAB PO (23:15)
[2025-04-14] MEDS: VANCOMYCIN/WATER (PEG) 1.25 GM/250 ML BAG IVPB ×3 (01:43→20:02)
[2025-04-14] MEDS: Normal Saline Flush 10 ML SYR IVP ×7 (01:43→20:04)
[2025-04-14 01:45] VITALS: BP 88/59; PULSE 66; RESP 16; TEMP 36.3; O2SAT 97
[2025-04-14 01:53] VITALS: BP 96/64
[2025-04-14] MEDS: Ketorolac 15 MG/ML VIAL IVP ×3 (01:55→18:53)
[2025-04-14 03:40] VITALS: BP 92/58; PULSE 70; TEMP 36.4
[2025-04-14] MEDS: Acetaminophen 325 MG TAB 650 MG PO ×3 (04:02→18:53)
[2025-04-14] MEDS: cloNIDine 0.1 MG TAB PO ×4 (04:02→20:03)
[2025-04-14 05:31] VITALS: BP 90/58; TEMP 35.6
[2025-04-14 07:17] LABS: Abs Immature Grans 0.32 10^3/uL (0.0-0.06); HCT 35.4 % (40.0-50.0); HGB 12.2 g/dL (13.5-17.5); Immature Grans % 2.6 %; MCH 30.4 pg (27.0-33.0); MCHC 34.5 % (32.0-36.0); MCV 88 fL (80-95); MPV 10.2 fL (8.0-11.0); Platelet Count 376 10^3/uL (130-400); RBC 4.01 10^6/uL (4.36-5.78); RDW 15.2 % (11.8-14.1); RDW-SD 50.3 fL; WBC 12.36 10^3/uL (4.4-10.8)
[2025-04-14 07:39] LABS: Anion Gap 7.1 mmol/L (3-11); BUN 11 mg/dL (7-18); CO2 26.9 mmol/L (21.0-32.0); Calcium 8.2 mg/dL (8.5-10.1); Chloride 105 mmol/L (98-107); Estimated GFR 137.26 (mL/min/1.73m2); Glucose 90 mg/dL (74-106); Potassium 3.5 mmol/L (3.5-5.1); Sodium 139 mmol/L (136-145)
[2025-04-14] MEDS: Enoxaparin 40 MG/0.4 ML SYR SC (08:56)
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
[2025-04-14 11:23] LABS: Vancomycin, Random 10.6 ug/mL (5.0-10.0)
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
[2025-04-14] MEDS: Nicotine 21 MG/24 HR PATCH TD (12:29)
--- NOTE | 2025-04-14 13:19 | W.PM.PROGNOT ---
Date of Service Date of service: 04/14/25 Time of Service: 13:19 Assessment and Plan Assessment and plan (1) MRSA bacteremia: Status: Acute Assessment and plan: blood cultures persistently positive repeat in am (2) Sepsis: Status: Resolved Assessment and plan: improved and stable. (3) Endocarditis: Status: Acute Assessment and plan: needs SANDRA 6 weeks antibiotics (4) Cavitary lesion of lung: Status: Acute Assessment and plan: 04/[address] results : IMPRESSION: 1. There are multiple similar appearing partially cavitated nodular infiltrates throughout both lungs, 1 of these corresponding to the finding described in the right lung on chest x-ray performed 04/10/2025. The largest is actually in the left lower lobe and is pleural based, measuring 33 x 28 x 28 mm. If clinically indicated this would be accessible for CT-guided biopsy by Interventional Radiology service. With respect to the etiology of these multiple bilateral nodular infiltrates, given their appearance and patient's age the etiology is most probably infectious, as opposed to neoplastic. [place] at [facility] [place]. Do: -Positive identification of lesions corresponding to septic emboli and recommendation for ongoing treatment as infectious -Most likely not neoplastic as per history, presentation and imaging -Repeat consult if not improvement Lesions been from hematogenous origin as per discussion with radiologist ID [facility] [place] consulted on 04/12 :As per Corona's criteria: Endocardititis criteria met and the patient should be treated for 6 weeks at least -Echo findings still relevant to determine the extent of damage- report not available - Persistence also determine by the event where repeated blood cultures would also be positive -Still recommending vancomycin with BOBBY <2 -If BOBBY .>2-4 consider daptomycin in addition to ceftaroline OR increased vanco dosage with higher trough levels (20) - (5) Pain: Status: Acute Assessment and plan: continue current regimen (6) Cellulitis of scalp: Status: Acute Assessment and plan: stable. no new therapies needed. (7) Closed fracture of distal end of right fibula: Status: Resolved (8) Opioid use disorder: Status: Acute (9) Abnormal transaminases: Status: Acute (10) Hepatitis C infection: Status: Chronic Assessment and plan: As above (11) Cellulitis of right lower extremity: Status: Acute Subjective Subjective Patient reports: no new complaints, feels better, tolerating liquids well, tolerating a regular diet and afebrile Exam Narrative Exam Narrative: Thin chronically ill-appearing male older than stated age head is atraumatic skin ashen warm and dry neurologic he is awake alert oriented no focal deficits psychiatric appropriate mood and affect eyes nonicteric noninjected oromucosa slightly dry moves all extremities respirations even and unlabored abdomen benign Objective Last Vital Signs Temp 35.6 C L 04/14/25 05:31 Pulse 70 04/14/25 03:40 Resp 16 04/14/25 01:45 BP 90/58 L 04/14/25 05:31 Pulse Ox 97 04/14/25 01:45 Laboratory Results - last 24 hr 04/13/25 04/14/25 04/14/25 15:00 06:55 08:55 WBC 17.25 H 12.36 H RBC 4.19 L 4.01 L Hgb 12.9 L 12.2 L Hct 37.1 L 35.4 L MCV 89 88 MCH 30.8 30.4 MCHC 34.8 34.5 RDW 15.2 H 15.2 H Plt Count 438 H 376 MPV 10.2 10.2 Immature Gran % See Differential 2.6 Neutrophils % 75.0 67.0 Band Neutrophils % 2 Lymphocytes % 12.0 20.0 Atypical Lymphs % 1 Monocytes % 8.0 8.2 Eosinophils % 1.0 1.7 Basophils % 0.0 0.5 Myelocytes % 1 Nucleated RBC % 0.0 0.0 Absolute Neutrophils 13.28 H 8.28 H Absolute Lymphocytes 2.24 2.47 Absolute Monocytes 1.38 H 1.01 H Absolute Eosinophils 0.17 0.21 Absolute Basophils 0.00 0.06 RBC Morphology Normal Sodium 139 139 Potassium 3.4 L 3.5 Chloride 101 105 Carbon Dioxide 27.7 26.9 Anion Gap 10.3 7.1 BUN 9 11 Creatinine 0.7 0.5 L Est GFR (CKD-EPI 2020) 124.00 137.26 Glucose 110 H 90 Calcium 8.6 8.2 L Magnesium 2.0 Total Bilirubin 0.7 AST 141 H ALT 320 H Alkaline Phosphatase 421 H Total Protein 6.9 Albumin 2.5 L Random Vancomycin 10.6 Time Spent with Patient Time Spent with Patient: 35-49 minutes Time was spent: preparing to see the patient(eg.review tests), obtaining and/or reviewing separately otained hiistory, ordering medications,tests, procedures, indepentently interpreting results and counseling the patient
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
[2025-04-14 14:24] VITALS: BP 116/81; PULSE 81; RESP 18; TEMP 36.8; O2SAT 97
[2025-04-14] MEDS: Melatonin 3 MG TAB 9 MG PO (20:03)
[2025-04-14 20:07] VITALS: BP 107/72; PULSE 87; RESP 20; TEMP 37.2; O2SAT 99
--- NOTE | 2025-04-15 | DI.RAD_ITS ---
Exam(s) XR ANKLE RT COMPLETE EXAM: XR ANKLE RT COMPLETE CLINICAL HISTORY: known fracture, increasing pain and swelling,. TECHNIQUE: 2D digital imaging was performed of the right ankle. Three images were obtained. AP, lateral and oblique views were obtained. COMPARISON: CR XR ANKLE RT COMPLETE from 02/20/2025 CR XR ANKLE RT COMPLETE from 04/10/2025 FINDINGS: BONES: Compared to the examination from 04/10/2025, there has been no significant change in alignment of the distal fibular fracture. There is stable callus formation which has developed about the fracture. No new fracture is identified. JOINTS: The ankle mortise is normally aligned. SOFT TISSUE: There is soft tissue swelling around the ankle, particularly laterally. IMPRESSION: Stable alignment of the distal fibular fracture. DATA REPOSITORY: RADIATION DOSE DELIVERED:
[2025-04-15] MEDS: Acetaminophen 325 MG TAB 650 MG PO ×4 (01:31→21:54)
[2025-04-15] MEDS: hydrOXYzine HCL 50 MG TAB PO ×2 (01:32→21:52)
[2025-04-15] MEDS: Ketorolac 15 MG/ML VIAL IVP ×4 (01:33→21:55)
[2025-04-15] MEDS: Normal Saline Flush 10 ML SYR IVP ×5 (01:34→21:55)
[2025-04-15 01:40] VITALS: BP 113/83; PULSE 68; RESP 16; TEMP 36.5; O2SAT 100
[2025-04-15] MEDS: VANCOMYCIN/WATER (PEG) 1.25 GM/250 ML BAG IVPB ×3 (04:22→22:41)
[2025-04-15] MEDS: cloNIDine 0.1 MG TAB PO ×4 (04:22→21:54)
[2025-04-15 06:35] VITALS: BP 114/86; PULSE 75; RESP 16; TEMP 37; O2SAT 100
[2025-04-15 08:07] LABS: Abs Immature Grans 0.39 10^3/uL (0.0-0.06); HCT 36.2 % (40.0-50.0); HGB 12.4 g/dL (13.5-17.5); Immature Grans % 2.3 %; MCH 30.9 pg (27.0-33.0); MCHC 34.3 % (32.0-36.0); MCV 90 fL (80-95); MPV 10.0 fL (8.0-11.0); Platelet Count 526 10^3/uL (130-400); RBC 4.01 10^6/uL (4.36-5.78); RDW 15.4 % (11.8-14.1); RDW-SD 51.2 fL; WBC 16.81 10^3/uL (4.4-10.8)
[2025-04-15] MEDS: Enoxaparin 40 MG/0.4 ML SYR SC (08:27)
[2025-04-15 08:30] LABS: ALT 268 U/L (16-63); AST 123 U/L (15-37); Albumin 2.1 g/dL (3.4-5.0); Alkaline Phosphatase 333 U/L (46-116); Anion Gap 9.4 mmol/L (3-11); BUN 11 mg/dL (7-18); Bilirubin, Total 0.6 mg/dL (0.2-1.0); C-Reactive Protein 8.50 mg/dL (<or=0.5); CO2 26.6 mmol/L (21.0-32.0); Calcium 8.4 mg/dL (8.5-10.1); Chloride 105 mmol/L (98-107); Estimated GFR 129.91 (mL/min/1.73m2); Glucose 107 mg/dL (74-106); Potassium 3.4 mmol/L (3.5-5.1); Sodium 141 mmol/L (136-145); Total Protein 6.1 g/dL (6.4-8.2)
--- NOTE | 2025-04-15 10:03 | CMPROGNOTE_ITS ---
Date of service: 04/15/25 Time of Service: 10:03 Care Management Progress Note Progress Note Text Progress Note Text: Johnathon was lying in bed when CM met with him. He was more awake and engaged today than he had been last week. Johnathon has positive blood cultures which will require shelter IV antibiotics; the exact course is not known yet. Johnathon still requires hospital level of care but when he is medically cleared he could be transitioned to SB-1 for continued IV antibiotics. Other possibilities include home infusion and coming to the Infusion center as an outpatient. Johnathon stated he would prefer not to remain hospitalized however he understands that, dep ending on the course, his options may be limited. Clinically, Johnathon shared that he is starting to feel better. His major complaint is the pain in his right ankle from the fibular fracture he sustained in January but which he reinjured just prior to admission Discharge Potential Discharge Needs: PCP F/U Appt Anticipated Barriers to Discharge: Medical Status (needs prolonged IV antibiotics) Patient/Family Education Needs: Review discharge instructions, discuss Ask Me Three Transportation: RCT Plan: Johnathon will likely need IV antibiotics for several weeks. It is possible he will transition to SB-1 to complete the course. Anticipate that Johnathon will be discharged home with no new services when medically cleared following treatment. He will follow up with his PCP and plan of care and transport with family. CM will follow and support discharge planning efforts. Social Determinants of Health Screening Social Determinants of health last assessed in clinic: 04/15/25 Will the Patient Participate in the Screening?: Yes Do you worry about having a steady place to live?: no Problems where you live: lack of heat, oven or stove not working, smoke detectors missing or not working and Carbon monoxide detectors missing or not working In the past 12 months, have you had to go without electric, gas, oil or water in your home?: yes 1. Within the past 12 months, we worried whether our food would run out before we got money to buy more.: Never true 2. Within the past 12 months, the food we bought just didn't last and we didn't have money to get more.: Never true Has lack of transportation kept you from medical appointments or from doing things needed for daily living?: yes Has anyone in your life made you feel unsafe or unsupported?: yes How often does anyone, including family and friends, physically hurt you?: Never How often does anyone, including family and friends, insult or talk down to you?: Sometimes How often does anyone, including family and friends, threaten you with harm?: Sometimes How often does anyone, including family and friends, scream or curse at you?: Sometimes HRSN Safety total score: 10 How hard is it for you to pay for the very basics like food, housing, medical care, and heating? Would you say it is:: Somewhat hard Do you want help finding or keeping work or a job?: I do not need or want help If for any reason you need help with day-to-day activities such as bathing, preparing meals, shopping, managing finances, etc., do you get the help you need?: I don?t need any help How often do you feel lonely or isolated from those around you?: Often Do you speak a language other than Belarusian at home?: No Does the patient want assistance with any of the above?: Yes Comments: pt reports homeless Health Related Social Needs Health related social needs: inadequate housing (Z59.1), transportation insecurity (Z59.82), material hardship(utilities) (Z59.12), problems related to housing/economic circumstances (Z59.89) and feeling lonely/isolated (Z60.8) Health related social needs details: homeless and needs resources
--- NOTE | 2025-04-15 10:05 | PT.INTREAT ---
PT Notes Visit Reasons: Sepsis,MRSA Bacteremia Date: 04/15/2025 PRECAUTIONS: Fall. Airborne and contact precautions. Activity as tolerated. SUBJECTIVE: Pt in bed when approached for therapy, reports he is very painful on his right ankle with positive swelling. refused OOB activity agreed to bed level activity to work on home exercise program. OBJECTIVE: ? PAIN: rigt ankle 05/05 VITALS: monitored by nursing? Therapeutic Activities 60426: Direct one-on-one instruction in dynamic activities to improve functional performance. ?? BED MOBILITY/TRANSFERS? Rolling L/R: independent Supine-sit: ?independent ? Sit-supine: independent? Sit-stand: ?not performed ? Stand-sit: ?not performed? Bed-Chair:? ?not performed ? Chair-bed: not performed Provided skilled cues and instruction on performance and technique throughout. ? Therapeutic Exercises 20027: Direct one-on-one instruction in therapeutic exercises to develop strength, endurance, range of motion and flexibility. Exercises Supine ankle pumps [id number] Supine ankle inversion/eversion [id number] Ankle alphabet 89w1ntw Supine Straight leg raises 58x7fqn Supine hip abduction/adduction 76v4dhn Supine bridge 11s5dtw Supine heel slides 76x0jks Seated marching [id number] Seated resisted hip abduction 47o0fnk Seated resisted hip adduction 50q3xpk Wall squats 71j0pux Standing heel cord stretch 90y7drj Provided skilled instruction in proper exercise performance Provided skilled manual cues to facilitate proper muscle recruitment and/or form: Manual therapy 01239 mins: Hands-on techniques to Modulate pain Reduce or eliminate soft tissue swelling, inflammation, or restriction Facilitate relaxation and improve contractile and non-contractile tissue extensibility.Treatment: Supine centripetal effleurage followed by petrissage for the right ankle and gastroc soleous for swelling management, elevation using bed and pillows for bolsters and cryo to conclude session. e ??? ASSESSMENT:?pt reports understanding HEP, understands importance of doing HEP daily to help with swelling and flexibility. PLAN: Continue with balance training, global strengthening and general conditioning for improved safety, mobility and activity tolerance until pt is ready for DC. TREATMENT CODE/TIME: [id number], [id number] 20mins (9:40- 10:00am)
[2025-04-15 12:35] LABS: Fentanyl Scr w/Rfx Confirm Positive ng/mL (<1)
--- NOTE | 2025-04-15 13:05 | PGE_ITS ---
Date of Service Date of service: 04/15/25 Time of Service: 13:05 Assessment and Plan Assessment and plan (1) MRSA bacteremia: Status: Acute Assessment and plan: blood cultures persistently positive repeat set pending for today (2) Sepsis: Status: Resolved Assessment and plan: improved and stable. (3) Endocarditis: Status: Acute Assessment and plan: needs SANDRA 6 weeks antibiotics (4) Cavitary lesion of lung: Status: Acute Assessment and plan: 04/[address] results : IMPRESSION: 1. There are multiple similar appearing partially cavitated nodular infiltrates throughout both lungs, 1 of these corresponding to the finding described in the right lung on chest x-ray performed 04/10/2025. The largest is actually in the left lower lobe and is pleural based, measuring 33 x 28 x 28 mm. If clinically indicated this would be accessible for CT-guided biopsy by Interventional Radiology service. With respect to the etiology of these multiple bilateral nodular infiltrates, given their appearance and patient's age the etiology is most probably infectious, as opposed to neoplastic. IR at [facility] consultation with Dr. Do: -Positive identification of lesions corresponding to septic emboli and recommendation for ongoing treatment as infectious -Most likely not neoplastic as per history, presentation and imaging -Repeat consult if not improvement Lesions been from hematogenous origin as per discussion with radiologist ID [facility] consulted on 04/12 :As per Corona's criteria: Endocardititis criteria met and the patient should be treated for 6 weeks at least -Echo findings still relevant to determine the extent of damage- report not available - Persistence also determine by the event where repeated blood cultures would also be positive -Still recommending vancomycin with BOBBY <2 -If BOBBY .>2-4 consider daptomycin in addition to ceftaroline OR increased vanco dosage with higher trough levels (20) - (5) Pain: Status: Acute Assessment and plan: continue current regimen (6) Cellulitis of scalp: Status: Acute Assessment and plan: stable. surgical consult completed, no new therapies recommended. (7) Closed fracture of distal end of right fibula: Status: Chronic Assessment and plan: worsening pain and swelling. will repeat xray, (8) Opioid use disorder: Status: Acute Assessment and plan: symptoms managed continue prn meds as needed. (9) Hepatitis C infection: Status: Chronic Assessment and plan: new diagnosis (10) Cellulitis of right lower extremity: Status: Acute Assessment and plan: responding to treatment Subjective Subjective Patient reports: still having pain (worsening right ankle pain), tolerating liquids well, tolerating a regular diet and afebrile; denies shortness of breath Interval history since last seen: worsening right ankle pain and swelling, has been ambulating with walking boot as instructed. denies acute injury Exam Narrative Exam Narrative: Thin chronically ill-appearing male older than stated age head is atraumatic skin ashen warm and dry neurologic he is awake alert oriented no focal deficits psychiatric appropriate mood and affect eyes nonicteric noninjected oromucosa slightly dry moves all extremities respirations even and unlabored abdomen benign, pain and swelling to right lateral ankle. no obvious deformity Objective Last Vital Signs Temp 37 C 04/15/25 06:35 Pulse 75 04/15/25 06:35 Resp 16 04/15/25 06:35 BP 114/86 04/15/25 06:35 Pulse Ox 100 04/15/25 06:35 Laboratory Results - last 24 hr 04/15/25 07:25 WBC 16.81 H RBC 4.01 L Hgb 12.4 L Hct 36.2 L MCV 90 MCH 30.9 MCHC 34.3 RDW 15.4 H Plt Count 526 H MPV 10.0 Immature Gran % 2.3 Neutrophils % 73.6 Lymphocytes % 15.9 Monocytes % 6.6 Eosinophils % 1.2 Basophils % 0.4 Nucleated RBC % 0.0 Absolute Neutrophils 12.37 H Absolute Lymphocytes 2.67 Absolute Monocytes 1.11 H Absolute Eosinophils 0.20 Absolute Basophils 0.07 Sodium 141 Potassium 3.4 L Chloride 105 Carbon Dioxide 26.6 Anion Gap 9.4 BUN 11 Creatinine 0.6 L Est GFR (CKD-EPI 2020) 129.91 Glucose 107 H Calcium 8.4 L Total Bilirubin 0.6 AST 123 H ALT 268 H Alkaline Phosphatase 333 H C-Reactive Protein 8.50 H Total Protein 6.1 L Albumin 2.1 L Time Spent with Patient Time Spent with Patient: 35-49 minutes Time was spent: preparing to see the patient(eg.review tests), obtaining and/or reviewing separately otained hiistory, ordering medications,tests, procedures, referring, communicating with other health personal care assistant, indepentently interpreting results and counseling the patient
[2025-04-15] MEDS: Potassium Chloride 20 MEQ TABCR 40 MEQ PO (13:29)
[2025-04-15 14:15] LABS: Magnesium 2.0 mg/dL (1.8-2.4)
[2025-04-15 15:01] LABS: Lab Add On Test DONE
[2025-04-15 15:11] LABS: Vancomycin, Trough 38.4 ug/mL
[2025-04-15 15:40] VITALS: BP 116/84; PULSE 71; RESP 18; TEMP 36.9; O2SAT 99
--- NOTE | 2025-04-15 19:59 | NUR.NOTE ---
Nursing Note: 1951 called pharmacy about vanco trough of 38 @ 1247. Appeared to be a bogus trough as the last dose was started 1150. Called Hospitalist, awaiting call back.
[2025-04-15] MEDS: Melatonin 3 MG TAB 9 MG PO (21:53)
[2025-04-15 22:06] VITALS: BP 112/79; PULSE 78; RESP 18; TEMP 37.2; O2SAT 100
[2025-04-15] MEDS: Nicotine 21 MG/24 HR PATCH TD (22:18)
[2025-04-15 23:28] LABS: Vancomycin, Trough 8.6 ug/mL
[2025-04-16] VITALS (8 sets, daily range): BP systolic 94–118; BP diastolic 64–87; PULSE 72–90; RESP 16–20; TEMP 36–36.9; O2SAT 97–99
[2025-04-16] MEDS: cloNIDine 0.1 MG TAB PO ×4 (06:05→19:41)
[2025-04-16] MEDS: VANCOMYCIN/WATER (PEG) 1.25 GM/250 ML BAG IVPB ×3 (06:05→22:59)
[2025-04-16] MEDS: Acetaminophen 325 MG TAB 650 MG PO ×2 (06:06→19:41)
[2025-04-16] MEDS: Ketorolac 15 MG/ML VIAL IVP ×3 (06:07→19:42)
[2025-04-16] MEDS: Normal Saline Flush 10 ML SYR IVP ×5 (06:08→22:59)
[2025-04-16 07:45] LABS: Abs Immature Grans 0.46 10^3/uL (0.0-0.06); HCT 34.9 % (40.0-50.0); HGB 11.9 g/dL (13.5-17.5); Immature Grans % 3.2 %; MCH 30.0 pg (27.0-33.0); MCHC 34.1 % (32.0-36.0); MCV 88 fL (80-95); MPV 9.5 fL (8.0-11.0); Platelet Count 537 10^3/uL (130-400); RBC 3.97 10^6/uL (4.36-5.78); RDW 15.6 % (11.8-14.1); RDW-SD 50.2 fL; WBC 14.23 10^3/uL (4.4-10.8)
[2025-04-16 08:00] LABS: ALT 268 U/L (16-63); AST 131 U/L (15-37); Albumin 2.0 g/dL (3.4-5.0); Alkaline Phosphatase 303 U/L (46-116); Anion Gap 5.1 mmol/L (3-11); BUN 11 mg/dL (7-18); Bilirubin, Total 0.5 mg/dL (0.2-1.0); CO2 28.9 mmol/L (21.0-32.0); Calcium 8.2 mg/dL (8.5-10.1); Chloride 103 mmol/L (98-107); Estimated GFR 129.91 (mL/min/1.73m2); Glucose 102 mg/dL (74-106); Potassium 4.4 mmol/L (3.5-5.1); Sodium 137 mmol/L (136-145); Total Protein 6.2 g/dL (6.4-8.2)
[2025-04-16] MEDS: Enoxaparin 40 MG/0.4 ML SYR SC (08:04)
--- NOTE | 2025-04-16 09:18 | CMPROGNOTE_ITS ---
Date of service: 04/16/25 Time of Service: 09:18 Care Management Progress Note Progress Note Text Progress Note Text: Johnathon was sound asleep both times when CM attempted to meet with him. He did not respond when spoken to and CM opted not to wake him. He has been complaining of a lot of pain in his leg. He was medicated early this morning and again this afternoon, with IV Ketorolac . Both times the medication seemed to have good effect. The repeat blood cultures done yesterday are negative at 24 hours. If they remain negative, it will be possible to calculate an end date for the course of IV antibiotics. Amrit had testing for TB and for viral hepatitis done. The Quantiferon gold test for TB came back negative and the negative pressure isolation has been discontinued. Amrit did test positive for Hepatitis C however. It appears he has been infected sometime in the past 5 years as his HCV was negative in 2019. Discharge Potential Discharge Needs: PCP F/U Appt Anticipated Barriers to Discharge: Medical Status Patient/Family Education Needs: Review discharge instructions, discuss Ask Me Three Transportation: Private vehicle Plan: Amrit will likely need IV antibiotics for several weeks. It is possible he will transition to SB-1 to complete the course. Anticipate that Johnathon will be d ischarged home with no new services when medically cleared following treatment. He will follow up with his PCP and plan of care and transport with family. CM will follow and support discharge planning efforts. Social Determinants of Health Screening Social Determinants of health last assessed in clinic: 04/16/25 Will the Patient Participate in the Screening?: Yes Do you worry about having a steady place to live?: no Problems where you live: lack of heat, oven or stove not working, smoke detectors missing or not working and Carbon monoxide detectors missing or not working In the past 12 months, have you had to go without electric, gas, oil or water in your home?: yes 1. Within the past 12 months, we worried whether our food would run out before we got money to buy more.: Never true 2. Within the past 12 months, the food we bought just didn't last and we didn't have money to get more.: Never true Has lack of transportation kept you from medical appointments or from doing things needed for daily living?: yes Has anyone in your life made you feel unsafe or unsupported?: yes How often does anyone, including family and friends, physically hurt you?: Never How often does anyone, including family and friends, insult or talk down to you?: Sometimes How often does anyone, including family and friends, threaten you with harm?: Sometimes How often does anyone, including family and friends, scream or curse at you?: Sometimes HRSN Safety total score: 10 How hard is it for you to pay for the very basics like food, housing, medical care, and heating? Would you say it is:: Somewhat hard Do you want help finding or keeping work or a job?: I do not need or want help If for any reason you need help with day-to-day activities such as bathing, preparing meals, shopping, managing finances, etc., do you get the help you need?: I don?t need any help How often do you feel lonely or isolated from those around you?: Often Do you speak a language other than Emirati at home?: No Does the patient want assistance with any of the above?: Yes Comments: pt reports homeless Health Related Social Needs Health related social needs: inadequate housing (Z59.1), transportation insecurity (Z59.82), material hardship(utilities) (Z59.12), problems related to housing/economic circumstances (Z59.89) and feeling lonely/isolated (Z60.8) Health related social needs details: homeless and needs resources
--- NOTE | 2025-04-16 09:23 | W.PM.PROGNOT ---
Date of Service Date of service: 04/16/25 Time of Service: 09:23 Assessment and Plan Assessment and plan (1) MRSA bacteremia: Status: Acute Assessment and plan: blood cultures persistently positive Blood Cx negative today from 04/15 PICC placement (2) Sepsis: Status: Resolved Assessment and plan: improving and stable. (3) Endocarditis: Status: Acute Assessment and plan: Needs SANDAR. [facility] [place] for outpatient facility procedure TTE negative As per Corona criteria during discussion with [facility] 6 weeks antibiotics from 04/15/25 (4) Cavitary lesion of lung: Status: Acute Assessment and plan: 04/[address] results : IMPRESSION: 1. There are multiple similar appearing partially cavitated nodular infiltrates throughout both lungs, 1 of these corresponding to the finding described in the right lung on chest x-ray performed 04/10/2025. The largest is actually in the left lower lobe and is pleural based, measuring 33 x 28 x 28 mm. If clinically indicated this would be accessible for CT-guided biopsy by Interventional Radiology service. With respect to the etiology of these multiple bilateral nodular infiltrates, given their appearance and patient's age the etiology is most probably infectious, as opposed to neoplastic. IR at [facility] consultation with Dr. Do: -Positive identification of lesions corresponding to septic emboli and recommendation for ongoing treatment as infectious -Most likely not neoplastic as per history, presentation and imaging -Repeat consult if not improvement Lesions been from hematogenous origin as per discussion with radiologist ID [facility] consulted on 04/12 :As per Corona's criteria: Endocardititis criteria met and the patient should be treated for 6 weeks at least -Echo findings still relevant to determine the extent of damage- report not available - Persistence also determine by the event where repeated blood cultures would also be positive -Still recommending vancomycin with BOBBY <2 at 0.5 - TB negative and HIV negative (5) Pain: Status: Acute Assessment and plan: Continue pain management regimen with acetaminophen and as needed ketorolac (6) Cellulitis of scalp: Status: Acute Assessment and plan: Improving stable. Surgical consult completed please read notes, continue ongoing therapies (7) Closed fracture of distal end of right fibula: Status: Chronic Assessment and plan: worsening pain and swelling. Ankle x-ray showed lung lesion no fracture (8) Opioid use disorder: Status: Acute Assessment and plan: symptoms managed continue prn meds as needed. (9) Hepatitis C infection: Status: Chronic Assessment and plan: new diagnosis? Considering follow-up in 12 weeks versus hepathology/ GI consult Trend LFTs (10) Cellulitis of right lower extremity: Status: Acute Assessment and plan: Improving with treatment Discussed with Dr. Castillo Subjective Subjective Patient reports: no new complaints, feels better, tolerating liquids well, tolerating a regular diet, voiding w/o difficulty, flatus and bowel movement (04/15 -); denies diarrhea, nausea, vomiting, shortness of breath or fever Exam Narrative Exam Narrative: Right mastoid bone area erythema and swelling improving with drying blister on right posterior helix alert and oriented X 3 , no neurological deficit, clear lungs , unlabored , diminished right base,S1 S2 regular, no cardiac murmur detected, abdomen non-distended, soft , non-tender, moves all 4 est, no CVA tenderness, right lower extremity swelling/erythema improving Objective Last Vital Signs Temp 36.5 C 04/16/25 08:27 Pulse 77 04/16/25 08:27 Resp 17 04/16/25 08:27 BP 118/84 04/16/25 08:27 Pulse Ox 99 04/16/25 08:27 Laboratory Results - last 24 hr 04/14/25 04/15/25 04/15/25 03:48 07: 12:47 WBC RBC Hgb Hct MCV MCH MCHC RDW Plt Count MPV Immature Gran % Neutrophils % Lymphocytes % Monocytes % Eosinophils % Basophils % Nucleated RBC % Absolute Neutrophils Absolute Lymphocytes Absolute Monocytes Absolute Eosinophils Absolute Basophils Sodium Potassium Chloride Carbon Dioxide Anion Gap BUN Creatinine Est GFR (CKD-EPI 2020) Glucose Calcium Magnesium 2.0 Total Bilirubin AST ALT Alkaline Phosphatase Total Protein Albumin Vancomycin Trough 38.4 Urine Fentanyl Screen Positive A Add-On Test Request DONE 04/15/25 04/16/25 20:34 07:30 WBC 14.23 H RBC 3.97 L Hgb 11.9 L Hct 34.9 L MCV 88 MCH 30.0 MCHC 34.1 RDW 15.6 H Plt Count 537 H MPV 9.5 Immature Gran % 3.2 Neutrophils % 72.3 Lymphocytes % 16.0 Monocytes % 6.5 Eosinophils % 1.5 Basophils % 0.5 Nucleated RBC % 0.0 Absolute Neutrophils 10.29 H Absolute Lymphocytes 2.28 Absolute Monocytes 0.92 H Absolute Eosinophils 0.21 Absolute Basophils 0.07 Sodium 137 Potassium 4.4 D Chloride 103 Carbon Dioxide 28.9 Anion Gap 5.1 BUN 11 Creatinine 0.6 L Est GFR (CKD-EPI 2020) 129.91 Glucose 102 Calcium 8.2 L Magnesium Total Bilirubin 0.5 AST 131 H ALT 268 H Alkaline Phosphatase 303 H Total Protein 6.2 L Albumin 2.0 L Vancomycin Trough 8.6 Urine Fentanyl Screen Add-On Test Request Time Spent with Patient Time Spent with Patient: >50 minutes Time was spent: preparing to see the patient(eg.review tests), obtaining and/or reviewing separately otained hiistory, ordering medications,tests, procedures, referring, communicating with other health long term care phlebotomist, indepentently interpreting results, counseling the patient and care coordination
[2025-04-16 09:56] LABS: Norfentanyl Confirmation >200 ng/mL (<10)
[2025-04-16 10:03] LABS: Xylazine, Confirmation Urine Negative ng/mL (<50)
[2025-04-16] MEDS: Nicotine 21 MG/24 HR PATCH TD (12:17)
--- NOTE | 2025-04-16 15:04 | PT.INTREAT ---
PT Notes Visit Reasons: Sepsis,MRSA Bacteremia Physical Therapy Inpatient Treatment Note Date: 04/16/2025 Precautions: Fall. Now on contact precautions only. Activity as tolerated. Subjective: Agreeable to trying out the walker to help offload the R foot to minimize pain. Objective: General Observation: Wound noted in post-auricular area looking better-decreased erythema and swelling. IV access through the L UE. Telemetry monitoring in place. Mental Status: Alert and oriented as to person, place, time, and purpose. Able to pay attention, focus, and respond appropriately. Pain: 5/10 in the postauricular area on the R and the R leg/foot Vital Signs: Closely monitored via tele Bed Mobility/Transfers: Minimal cueing provided for use of B hands as needed for support, movement sequence, AD management, and posture to reduce fall risk and minimize pain report Rolling independent Supine to sit stand by assist Sit to supine stand by assist Sit to stand stand by assist Stand to sit stand by assist Gait: Tolerated 75 feet of in-room ambulation using FWW. [place] more stable with the FWW. No increase in pain report in the R leg/foot. Stairs: Not done at this time Balance: Static Sitting: Normal Dynamic Sitting: Normal Static Standing: Good Dynamic Standing: Fair Assessment: Patient was seen today to determine the benefit of using a FWW to off-load R foot which has had increased pain since yesterday. Patient reported having better leg length equality with use of post-op shoe on the L side that has made walking pattern better. Plan of Care/Treatment Plan: Use FWW for comfort and increase stability during mobility performance. DISCHARGE RECOMMENDATIONS: PT TREATMENT CODE/TIME: Session 1--97358 x 14 minutes for 1 unit (9:09-9:23) Session 2--16125 x 23 minutes for 2 units (15:04-15:27).
[2025-04-16] MEDS: Melatonin 3 MG TAB 9 MG PO (19:42)
[2025-04-16] MEDS: hydrOXYzine HCL 50 MG TAB PO (19:42)
[2025-04-17] MEDS: Acetaminophen 325 MG TAB 650 MG PO (00:41)
[2025-04-17 03:22] VITALS: BP 104/74; PULSE 70; RESP 19; TEMP 36.3; O2SAT 97
[2025-04-17] MEDS: Ketorolac 15 MG/ML VIAL IVP ×3 (03:33→21:25)
[2025-04-17] MEDS: VANCOMYCIN/WATER (PEG) 1.25 GM/250 ML BAG IVPB ×3 (05:44→23:09)
[2025-04-17] MEDS: cloNIDine 0.1 MG TAB PO ×3 (06:08→14:05)
[2025-04-17 07:33] LABS: Abs Immature Grans 0.36 10^3/uL (0.0-0.06); HCT 34.0 % (40.0-50.0); HGB 11.4 g/dL (13.5-17.5); Immature Grans % 2.5 %; MCH 29.8 pg (27.0-33.0); MCHC 33.5 % (32.0-36.0); MCV 89 fL (80-95); MPV 9.4 fL (8.0-11.0); Platelet Count 585 10^3/uL (130-400); RBC 3.82 10^6/uL (4.36-5.78); RDW 15.8 % (11.8-14.1); RDW-SD 51.3 fL; WBC 14.29 10^3/uL (4.4-10.8)
[2025-04-17 07:50] LABS: ALT 287 U/L (16-63); AST 145 U/L (15-37); Albumin 2.0 g/dL (3.4-5.0); Alkaline Phosphatase 280 U/L (46-116); Anion Gap 8.4 mmol/L (3-11); BUN 15 mg/dL (7-18); Bilirubin, Total 0.5 mg/dL (0.2-1.0); CO2 28.6 mmol/L (21.0-32.0); Calcium 8.4 mg/dL (8.5-10.1); Chloride 104 mmol/L (98-107); Estimated GFR 124.00 (mL/min/1.73m2); Glucose 108 mg/dL (74-106); Potassium 4.1 mmol/L (3.5-5.1); Sodium 141 mmol/L (136-145); Total Protein 6.2 g/dL (6.4-8.2)
[2025-04-17 07:59] VITALS: BP 102/72; PULSE 65; RESP 14; TEMP 36.9; O2SAT 99
[2025-04-17] MEDS: Enoxaparin 40 MG/0.4 ML SYR SC (08:33)
--- NOTE | 2025-04-17 08:56 | PDOC.CMPRO ---
Date of service: 04/17/25 Time of Service: 08:56 Care Management Progress Note Progress Note Text Progress Note Text: Johnathon was sitting up in bed when CM met with him. He was awake, alert and easily engaged with CM. Johnathon will need to complete a 6 week course of IV antibiotics to treat the MRSA bacteremia and abscesses. CM discussed the various options for therapy which include Infusion Center, home infusions with home health support or swing bed-1. Because the current regimen requires 3 doses a day, the Infusion Center is not an option. Johnathon is also homeless according to his Mom, so home infusions would not work either. Johnathon is actually agreeable to the swing bed option. CM explained that he would be able to go out on pass from time to time. That appealed to him as he has been unable to leave the hospital for days. CM did explain that there would need to be a contract with guidelines that delineate expectations. These might include hours that he can leave, the need to be present for all doses of antibiotic, the requirement to sign in and out for each pass and to be on campus for the night. Johnathon was agreeable to all of these conditions. Per provider, Johnathon still needs a SANDRA. Efforts are underway to get that scheduled at [facility] [place] down and [place]. Hopefully that will happen tomorrow. Once that is completed, Johnathon can be transferred into SB-1 status. Discharge Potential Discharge Needs: PCP F/U Appt Anticipated Barriers to Discharge: None Identified Patient/Family Education Needs: Review discharge instructions, discuss Ask Me Three Transportation: Private vehicle Plan: Amrit will need IV antibiotics for several weeks. The only viable option for him is to remain at [facility] in [facility]. Johnathon is in agreement with that plan. Anticipate that Johnathon will be discharged home with no new services when medically cleared following treatment. He will follow up with his PCP and plan of care and transport with family. CM will follow and support discharge planning efforts. Social Determinants of Health Screening Social Determinants of health last assessed in clinic: 04/17/25 Will the Patient Participate in the Screening?: Yes Do you worry about having a steady place to live?: no Problems where you live: lack of heat, oven or stove not working, smoke detectors missing or not working and Carbon monoxide detectors missing or not working In the past 12 months, have you had to go without electric, gas, oil or water in your home?: yes 1. Within the past 12 months, we worried whether our food would run out before we got money to buy more.: Never true 2. Within the past 12 months, the food we bought just didn't last and we didn't have money to get more.: Never true Has lack of transportation kept you from medical appointments or from doing things needed for daily living?: yes Has anyone in your life made you feel unsafe or unsupported?: yes How often does anyone, including family and friends, physically hurt you?: Never How often does anyone, including family and friends, insult or talk down to you?: Sometimes How often does anyone, including family and friends, threaten you with harm?: Sometimes How often does anyone, including family and friends, scream or curse at you?: Sometimes HRSN Safety total score: 10 How hard is it for you to pay for the very basics like food, housing, medical care, and heating? Would you say it is:: Somewhat hard Do you want help finding or keeping work or a job?: I do not need or want help If for any reason you need help with day-to-day activities such as bathing, preparing meals, shopping, managing finances, etc., do you get the help you need?: I don?t need any help How often do you feel lonely or isolated from those around you?: Often Do you speak a language other than Romanian at home?: No Does the patient want assistance with any of the above?: Yes Comments: pt reports homeless Health Related Social Needs Health related social needs: inadequate housing (Z59.1), transportation insecurity (Z59.82), material hardship(utilities) (Z59.12), problems related to housing/economic circumstances (Z59.89) and feeling lonely/isolated (Z60.8) Health related social needs details: homeless and needs resources
--- NOTE | 2025-04-17 09:25 | W.PM.PROGNOT ---
Date of Service Date of service: 04/17/25 Time of Service: : Assessment and Plan Assessment and plan (1) MRSA bacteremia: Status: Acute Assessment and plan: blood cultures persistently positive inititally Blood Cx from 04/15- still negative PICC placement - 04/18 (2) Sepsis: Status: Resolved Assessment and plan: Still improving (3) Endocarditis: Status: Acute Assessment and plan: Needs SANDRA. [facility] consulted for outpatient facility procedure awaiting call- request refaxed today TTE negative As per Corona criteria during discussion with [facility] IR At least 6 weeks antibiotics from 04/15/25 ID consult if markers not trending down - at the time will consult for Hep C aggressive treatment VS conventional recommendation (4) Cavitary lesion of lung: Status: Acute Assessment and plan: 04/[address] results : IMPRESSION: 1. There are multiple similar appearing partially cavitated nodular infiltrates throughout both lungs, largest is actually in the left lower lobe and is pleural based, measuring 33 x 28 x 28 mm. With respect to the etiology of these multiple bilateral nodular infiltrates, given their appearance and patient's age the etiology is most probably infectious, as opposed to neoplastic. IR at [facility] consultation with Dr. Do: Declined for intervention at the time -Positive identification of lesions corresponding to septic emboli and recommendation for ongoing treatment as infectious -Most likely not neoplastic as per history, presentation and imaging -Repeat consult if not improvement Lesions been from hematogenous origin as per discussion with radiologist Dr. Radha MAYBERRY [facility] consulted on 04/12 :As per Corona's criteria: Endocardititis criteria met and the patient should be treated for 6 weeks at least -Echo findings still relevant to determine the extent of damage-negative for vegetation LVEF 55-60% - Persistence also determine by the event where repeated blood cultures would also be positive -Still recommending vancomycin with BOBBY at 0.5- but daily dose not meeting requirement as per pharmacy - TB negative and HIV negative (5) Pain: Status: Acute Assessment and plan: Continue pain management regimen with acetaminophen and as needed ketorolac Ankle pain well controlled (6) Cellulitis of scalp: Status: Acute Assessment and plan: Improving stable. Surgical consult completed notes available (7) Closed fracture of distal end of right fibula: Status: Chronic Assessment and plan: worsening pain and swelling. Ankle x-ray showed lung lesion no fracture Pain well controlled on ordered meds (8) Opioid use disorder: Status: Acute Assessment and plan: symptoms managed but experiencing cravings Will offer naltrexone PRN hydroxyzine added with schedlued HS dose continue to also offer previous prn meds when due (9) Hepatitis C infection: Status: Chronic Assessment and plan: new diagnosis? Considering repeat labs for hep C in 12 weeks versus hepathology/ GI consult Trend CMP (10) Cellulitis of right lower extremity: Status: Acute Assessment and plan: Ongoing improvement with treatment Discussed with Dr. Castillo Subjective Subjective Patient reports: no new complaints, feels better, tolerating liquids well, tolerating a regular diet, voiding w/o difficulty, flatus, bowel movement (04/15 -formed) and other (But reporting urge to leave for drug use and requesting opioids inpatient - told that outpatient regimen will be verified in AM - last script 10/2024- agrees to other Rx assisting in w/d); denies diarrhea, nausea, vomiting, shortness of breath or fever Exam Narrative Exam Narrative: Right ear erythema and swelling improving alert and oriented X 3 , no neurological deficit, clear lungs ,diminished right base,S1 S2 regular, no cardiac murmur, abdomen non-distended, soft , non-tender, moves all 4 est, no CVA tenderness, right lower extremity swelling/erythema improving Objective Last Vital Signs Temp 36.9 C 04/17/25 07:59 Pulse 65 04/17/25 07:59 Resp 14 04/17/25 07:59 BP 102/72 04/17/25 07:59 Pulse Ox 99 04/17/25 07:59 Laboratory Results - last 24 hr 04/14/25 04/17/25 03:48 07:23 WBC 14.29 H RBC 3.82 L Hgb 11.4 L Hct 34.0 L MCV 89 MCH 29.8 MCHC 33.5 RDW 15.8 H Plt Count 585 H MPV 9.4 Immature Gran % 2.5 Neutrophils % 72.7 Lymphocytes % 16.8 Monocytes % 6.4 Eosinophils % 1.3 Basophils % 0.3 Nucleated RBC % 0.0 Absolute Neutrophils 10.39 H Absolute Lymphocytes 2.40 Absolute Monocytes 0.91 H Absolute Eosinophils 0.19 Absolute Basophils 0.04 Sodium 141 Potassium 4.1 Chloride 104 Carbon Dioxide 28.6 Anion Gap 8.4 BUN 15 Creatinine 0.7 Est GFR (CKD-EPI 2020) 124.00 Glucose 108 H Calcium 8.4 L Total Bilirubin 0.5 AST 145 H ALT 287 H Alkaline Phosphatase 280 H Total Protein 6.2 L Albumin 2.0 L Ur Fentanyl Confirm >40 A Ur Norfentanyl Confirm >200 A Urine Xylazine Negative Time Spent with Patient Time Spent with Patient: >50 minutes Time was spent: preparing to see the patient(eg.review tests), obtaining and/or reviewing separately otained hiistory, ordering medications,tests, procedures, referring, communicating with other health director of managed care, indepentently interpreting results, counseling the patient and care coordination
[2025-04-17 11:14] VITALS: BP 108/77; PULSE 82; RESP 12; TEMP 36.4; O2SAT 99
[2025-04-17] MEDS: Nicotine 21 MG/24 HR PATCH TD (12:20)
--- NOTE | 2025-04-17 14:16 | PHA.REVIEW2 ---
Pharmacy Admission Review Admission Clinical Review Admission Pharmacy Review: Cellulitis of right lower extremity (Acute) Endocarditis (Acute) Cavitary lesion of lung (Acute) MRSA bacteremia (Acute) Opioid use disorder (Acute) Pain (Acute) Abnormal transaminases (Acute) Cellulitis of scalp (Acute) No Known Allergies Allergy (Unverified 04/13/25 14:31) Resuscitation Status Full Code Height 5 ft 10 in Weight 65.998 kg Pharmacy Admission Review Renal Dosing Renal Dosing: BUN 15 mg/dL (7-18) 04/17/25 07:23 Creatinine 0.7 mg/dL (0.70-1.30) 04/17/25 07:23 Medications needing adjustments: Reviewed (CrCl 138.8 mL/min) List of meds needing interventions: Current medications are okay Anticoagulation Anticoagulation: Hgb 11.4 g/dL (13.5-17.5) L 04/17/25 07:23 Hct 34.0 % (40.0-50.0) L 04/17/25 07:23 Plt Count 585 10^3/uL (130-400) H 04/17/25 07:23 Creatinine 0.7 mg/dL (0.70-1.30) 04/17/25 07:23 DVT Prophylaxis: Reviewed (Hgb decreased from 11.9, AST/ALT increased from 131/268 to 145/287) Medications: Enoxaparin (40MG DAILY) Relevant Labs Relevant Labs: Sodium 141 mmol/L (136-145) 04/17/25 07:23 Potassium 4.1 mmol/L (3.5-5.1) 04/17/25 07: Chloride 104 mmol/L (98-107) 04/17/25 07:23 Magnesium 2.0 mg/dL (1.8-2.4) 04/15/25 07:25 C-Reactive Protein 8.50 mg/dL (<or=0.5) H 04/15/25 07:25 Electrolytes, C-Reactive P, ESR: Reviewed Cardiac Review BP, HR, EF%: Reviewed (HR and BP WNL) QTc Review QTc: Reviewed (484 from 04/10/25) IV to PO Switch IV Medications: Reviewed (ketorolac and vancomycin) Home Meds Home Med List reviewed: Reviewed Relevent Home Meds Not ordered & why?: No known home meds Current Meds Current Medication Order Review: Intervened Comments: Added IV admission order Pharmacy Antibiotic Review Relevant Labs: WBC 14.29 10^3/uL (4.4-10.8) H 04/17/25 07:23 Temperature 36.4 C Temperature 36.9 C Temperature 36.3 C Microbiology 04/15/25 07:40 Blood Culture - Preliminary Blood NO GROWTH 48 HOURS 04/15/25 07:25 Blood Culture - Preliminary Blood NO GROWTH 48 HOURS Pharmacy Antibiotic Activity: C/S review and Reviewed, no change Comments: Patient is on vancomycin, day 4, for MRSA bacteremia and possible endocarditis. Per provider patient will require up to 6 weeks of treatment. Discussed with provider possibility of changing vancomycin dosing to q24h so that patient could be discharged and go to infusion room for treatment. Informed provider that the only possibility was would be 3g q24h that gave a predicted AUC of 428 and trough of 4. Agreed with provider that this seemed suboptimal and will keep patient at current dosing for now. Current dose is 1250mg q8h with predicted AUC of 530. Last level was 8.6 from 04/15 at 2033. Will repeat level if any changes in renal function, should repeat regardless in a few days due to need for prolonged treatment. WBC slightly increased from 14.23, initial blood cultures grew MRSA (04/10/25 and 04/12/25).
--- NOTE | 2025-04-17 15:31 | CHAPLAIN ---
I had a brief visit with Johnathon. His mom, Leesa Giles, works in [employer]. Johnathon said he's doing ok. He's dealing with an infection. I explained my role and offered support.
[2025-04-17 15:41] VITALS: BP 100/64; PULSE 85; RESP 12; TEMP 36.4; O2SAT 98
--- NOTE | 2025-04-17 16:58 | PT.INTREAT ---
PT Notes Visit Reasons: Sepsis,MRSA Bacteremia Physical Therapy Inpatient Treatment Note Date: 04/17/2025 Precautions: Fall. Now on contact precautions only. Activity as tolerated. Subjective: Willing to try out walking without the walker this afternoon. Did not sleep well last night but was willing to work with PT today, had a rough morning. Objective: General Observation: Wound noted in post-auricular area looking better-decreased erythema and swelling. IV access through the L UE. Mental Status: Alert and oriented as to person, place, time, and purpose. Able to pay attention, focus, and respond appropriately. Pain: None reported Vital Signs: Closely monitored by nursing staff Bed Mobility/Transfers: Minimal cueing provided for use of B hands as needed for support, movement sequence, AD management, and posture to reduce fall risk and minimize pain report Rolling independent Supine to sit supervision Sit to supine supervision Sit to stand supervision Stand to sit supervision Gait: Tolerated 300 feet of [employer] ambulation using no device. Gait minimally antalgic. [place] more stable with the FWW. No increase in pain report in the R leg/foot. Infrequent hand lean to wall for balance needed for balance but no LOB. Stairs: Not done at this time Balance: Static Sitting: Normal Dynamic Sitting: Normal Static Standing: Good Dynamic Standing: Fair Assessment: Patient managed to complete ambulation performance without an asssitive device without report of increased pain in R leg/foot. Use of post op shoe on the L has helpe balance leg length out for better and safer gait mechanics. Plan of Care/Treatment Plan: Progress mobility level, strength, and balance as tolerated DISCHARGE RECOMMENDATIONS: OP PT TREATMENT CODE/TIME: 25096 x 26 minutes for 2 unit (16:58-17:24)
[2025-04-17] MEDS: hydrOXYzine HCL 50 MG TAB PO ×2 (19:02→23:09)
[2025-04-17 19:40] VITALS: BP 98/65; PULSE 85; RESP 20; TEMP 36.8; O2SAT 98
[2025-04-17] MEDS: Acetaminophen 500 MG TAB 1000 MG PO (21:25)
[2025-04-17] MEDS: Melatonin 3 MG TAB 9 MG PO (21:25)
[2025-04-18] VITALS (9 sets, daily range): BP systolic 98–115; BP diastolic 58–81; PULSE 70–109; RESP 16–18; TEMP 36.4–37.3; O2SAT 96–100
[2025-04-18] MEDS: Normal Saline Flush 10 ML SYR IVP ×4 (00:48→23:49)
[2025-04-18] MEDS: Acetaminophen 500 MG TAB 1000 MG PO ×3 (02:33→13:30)
[2025-04-18] MEDS: Ketorolac 15 MG/ML VIAL IVP ×4 (02:34→20:29)
[2025-04-18] MEDS: VANCOMYCIN/WATER (PEG) 1.25 GM/250 ML BAG IVPB ×3 (05:52→22:00)
[2025-04-18] MEDS: Enoxaparin 40 MG/0.4 ML SYR SC (09:01)
[2025-04-18] MEDS: cloNIDine 0.1 MG TAB PO ×3 (09:02→20:32)
[2025-04-18] MEDS: hydrOXYzine HCL 50 MG TAB PO ×3 (09:18→22:04)
--- NOTE | 2025-04-18 09:21 | CMPROGNOTE_ITS ---
Date of service: 04/18/25 Time of Service: 09:21 Care Management Progress Note Progress Note Text Progress Note Text: Johnathon was sitting up in bed when CM met with him. He was pleasant in manner and easily engaged with CM. Clinically, Johnathon is improving. He has been afebrile for several days and his vital signs are stable. Johnathon' LFTs are still elevated, likely related to his untreated hepatitis C infection.He has been ambulating in the halls with PT and is doing well. He shared that his leg pain is much improved and the addition of clonidine and hydroxazine to his medication regimen has been very helpful. Johnathon will be transitioned to SB-1 soon in order to complete a 6 week course of IV antibiotics. He is scheduled to go to [facility] [place] on Tuesday for a SANDRA to rule out endocarditis. The transition will likely occur after he returns. Johnathon had hoped to be in [facility] for the weekend so that he could hgo outside, but understands why it is best to have the SANDRA first. Discharge Potential Discharge Needs: PCP F/U Appt Anticipated Barriers to Discharge: Medical Status (needs residential IVAB) Patient/Family Education Needs: Review discharge instructions, discuss Ask Me Three Transportation: Private vehicle Plan: Amrit will need IV antibiotics for several weeks. The only viable option for him is to remain at [facility] in [facility]. Johnathon is in agreement with that plan. Anticipate that Johnathon will be discharged home with no new services when medically cleared following treatment. He will follow up with his PCP and plan of care and transport with family. CM will follow and support discharge planning efforts. Social Determinants of Health Screening Social Determinants of health last assessed in clinic: 04/18/25 Will the Patient Participate in the Screening?: Yes Do you worry about having a steady place to live?: no Problems where you live: lack of heat, oven or stove not working, smoke detectors missing or not working and Carbon monoxide detectors missing or not working In the past 12 months, have you had to go without electric, gas, oil or water in your home?: yes 1. Within the past 12 months, we worried whether our food would run out before we got money to buy more.: Never true 2. Within the past 12 months, the food we bought just didn't last and we didn't have money to get more.: Never true Has lack of transportation kept you from medical appointments or from doing things needed for daily living?: yes Has anyone in your life made you feel unsafe or unsupported?: yes How often does anyone, including family and friends, physically hurt you?: Never How often does anyone, including family and friends, insult or talk down to you?: Sometimes How often does anyone, including family and friends, threaten you with harm?: Sometimes How often does anyone, including family and friends, scream or curse at you?: Sometimes HRSN Safety total score: 10 How hard is it for you to pay for the very basics like food, housing, medical care, and heating? Would you say it is:: Somewhat hard Do you want help finding or keeping work or a job?: I do not need or want help If for any reason you need help with day-to-day activities such as bathing, preparing meals, shopping, managing finances, etc., do you get the help you need?: I don?t need any help How often do you feel lonely or isolated from those around you?: Often Do you speak a language other than Gabonese at home?: No Does the patient want assistance with any of the above?: Yes Comments: pt reports homeless Health Related Social Needs Health related social needs: inadequate housing (Z59.1), transportation insecurity (Z59.82), material hardship(utilities) (Z59.12), problems related to housing/economic circumstances (Z59.89) and feeling lonely/isolated (Z60.8) Health related social needs details: homeless and needs resources
--- NOTE | 2025-04-18 10:43 | W.PM.PROGNOT ---
Date of Service Date of service: 04/18/25 Time of Service: 10:43 Assessment and Plan Assessment and plan (1) MRSA bacteremia: Status: Acute Assessment and plan: Initital blood cultures persistently positive Blood Cx from 04/15- still negative on 04/18 PICC placement - 04/18 (2) Sepsis: Status: Resolved Assessment and plan: Ongoing improvement - down trending WBC (3) Endocarditis: Status: Acute Assessment and plan: [facility] [place] SANDR[facility] for 04/22 arrival time for 0815 4W TTE negative As per Corona criteria during discussion with [facility] [place] IR At least 6 weeks antibiotics from 04/15/25 ID consult if markers not trending down - at the time will consult for Hep C aggressive treatment VS conventional recommendation (4) Cavitary lesion of lung: Status: Acute Assessment and plan: 04/[address] results : IMPRESSION: 1. There are multiple similar appearing partially cavitated nodular infiltrates throughout both lungs, the left lower lobe pleural based lesion , measuring 33 x 28 x 28 mm. Etiology of these multiple bilateral nodular infiltrates, given their appearance and patient's age the etiology is most likely infectious VS neoplastic. IR at [facility] [place] consultation with Dr. Do: Declined for intervention at the time - and recommendation for ongoing Tx with antibiotics -Positive identification of lesions corresponding to septic emboli and recommendation for ongoing treatment as infectious -Most likely not neoplastic as per history, presentation and imaging -Repeat consult if not improvement Lesions been from hematogenous origin as per discussion with radiologist Dr. Garcia ID [facility] [place] consulted on 04/12 :As per Corona's criteria: Endocardititis criteria met and the patient should be treated for 6 weeks at least- pending SANDRA results -Echo findings still relevant to determine the extent of damage-TTE failed to rule in vegetations -LVEF 55-60% - Persistence also determine by the event where repeated blood cultures would also be positive -Ongoing vancomycin with BOBBY at 0.5- multiple doses daily needed as per pharmacy - TB negative and HIV negative (5) Pain: Status: Acute Assessment and plan: Right ankle pain Continue pain management regimen with acetaminophen and as needed ketorolac had to be changed to scheduled d/t increased pain in the setting of opioid craving and increased anxiety Will attempt to resume PRN dosing Patient reminded to keep boot when ambulating as recommended by ortho Ankle pain well controlled (6) Cellulitis of scalp: Status: Acute Assessment and plan: Improving Surgical consult completed - no intervention recommended at the time (7) Closed fracture of distal end of right fibula: Status: Chronic Assessment and plan: Pain improved today , no swelling Ankle x-ray showed stable fracture no re-injury Pain as per point 5 Seen by PT (8) Opioid use disorder: Status: Acute Assessment and plan: symptoms managed but experiencing cravings Naltrexone offered - still thinking about it PRN hydroxyzine added with scheduled HS dose Continue to offer previous PRN meds when due [facility] [place] contacted and the patient is not on their list Mentioned requiring to tbe weaned off suboxone at [place] prior to signing himself off- will ahve to contact PCP to get clarification on pt's statement about taking suboxone to be transitioned to methadone by PCP. (9) Hepatitis C infection: Status: Chronic Assessment and plan: new diagnosis? Considering repeat labs for hep C in 12 weeks versus hepathology/ GI consult Trend CMP - bloodwork pending (10) Cellulitis of right lower extremity: Status: Acute Assessment and plan: Improvement with treatment- no further redness Discussed with Dr. Castillo Subjective Subjective Patient reports: no new complaints (but poor appetite), feels better, tolerating liquids well, tolerating a regular diet, voiding w/o difficulty, bowel movement and other (less anxious and better control of craving- not decided on Naltrexone- family in room could not discuss suboxone VS methadone (not on [facility] list in [place]) ); denies diarrhea, nausea, vomiting, shortness of breath or fever Exam Narrative Exam Narrative: Right ear erythema and swelling w ongoing improvemnt , alert and oriented X 3 , no neurological deficit, clear lungs ,diminished right base,S1 S2 regular, no cardiac murmur, abdomen non-distended, soft , non-tender, moves all 4 est, no CVA tenderness, right lower extremity swelling/erythema resolved Objective Last Vital Signs Temp 36.9 C 04/18/25 08:27 Pulse 76 04/18/25 08:27 Resp 17 04/18/25 08:27 BP 109/73 04/18/25 08:27 Pulse Ox 96 04/18/25 08:27 Time Spent with Patient Time Spent with Patient: >50 minutes Time was spent: preparing to see the patient(eg.review tests), obtaining and/or reviewing separately otained hiistory, ordering medications,tests, procedures, referring, communicating with other health home health care social worker, indepentently interpreting results, counseling the patient and care coordination
[2025-04-18] MEDS: Nicotine 21 MG/24 HR PATCH TD (13:30)
--- NOTE | 2025-04-18 14:46 | PT.INTREAT ---
PT Notes Visit Reasons: Sepsis,MRSA Bacteremia Physical Therapy Inpatient Treatment Note Date: 04/18/2025 Precautions: Fall. Now on contact precautions only. Activity as tolerated. Subjective: Pt states he is feeling a little better just tired from not sleeping well at night. Pt reports he may be converting to swing bed soon. He is looking forward to this so he can go sit outside and get fresh air. Objective: General Observation: IV access through the L UE. Telemetry in place Mental Status: Alert &Ox4, follows all instructions Pain: None reported Vital Signs: Closely monitored by nursing staff Bed Mobility/Transfers: Intermittent cueing provided for posture to reduce fall risk and minimize pain/ discomfort in right ankle Rolling independent Supine to sit independent Sit to supine independent Sit to stand independent Stand to sit independent Gait: Tolerated 600 feet of med surg hallway ambulation using no device. Gait limited by Cam Boot R. No increase in pain report in the R leg/foot. During the initial 5 steps pt utilized hand contact on wall then was able to progress for remainder of the 600 feet without LOB or without external support. Stairs: Not done at this time Balance: Static Sitting: Normal Dynamic Sitting: Normal Static Standing: Good Dynamic Standing: Fair Assessment: Pt with progression of gait without AD and without LOB for 600 feet. Pt able to safely ambulate to from the bathroom in his room without assistance. Pt to participate in stairs and outdoor ambulation next session. Plan of Care/Treatment Plan: Progress mobility level, strength, and balance as tolerated DISCHARGE RECOMMENDATIONS: OP PT TREATMENT CODE/TIME: 90110 x 17 minutes for 1 unit ([id number])
--- NOTE | 2025-04-18 19:15 | DI.RAD_ITS ---
Exam(s) XR PORTABLE CHEST AP POST LINE EXAM: XR PORTABLE CHEST AP POST LINE CLINICAL HISTORY: PICC line verification TECHNIQUE: 2D digital imaging was performed. COMPARISON: CT CT CHEST WO from 04/11/2025 FINDINGS: A PICC line is been inserted via the right arm. The tip is coiled into the azygos vein. LUNGS: Suboptimally inflated but clear. No pleural abnormality seen. HEART: Normal size. AORTA: Normal diameter. BONES: Unremarkable for age. Soft tissues: Unremarkable. IMPRESSION: Tip of the PICC line is positioned within the azygos vein. DATA REPOSITORY: RADIATION DOSE DELIVERED:
--- NOTE | 2025-04-18 19:30 | DI.RAD_ITS ---
Exam(s) XR PORTABLE CHEST AP POST LINE EXAM: XR PORTABLE CHEST AP POST LINE CLINICAL HISTORY: PICC Placement TECHNIQUE: 2D digital imaging was performed. COMPARISON: CR,XR XR PORTABLE CHEST AP POST LINE from 04/18/2025 FINDINGS: The PICC line has been repositioned with the tip now projecting in the region of the the cavoatrial junction. LUNGS: Suboptimally inflated. Grossly clear. No pleural abnormality seen. HEART: Normal size. AORTA: Normal diameter. BONES: Unremarkable for age. Soft tissues: Unremarkable. IMPRESSION: The PICC line is now positioned with the tip at the cavoatrial junction. The preliminary [facility] report was reviewed. DATA REPOSITORY: RADIATION DOSE DELIVERED:
[2025-04-18 20:17] LABS: Abs Immature Grans 0.20 10^3/uL (0.0-0.06); HCT 32.2 % (40.0-50.0); HGB 10.8 g/dL (13.5-17.5); Immature Grans % 1.6 %; MCH 30.2 pg (27.0-33.0); MCHC 33.5 % (32.0-36.0); MCV 90 fL (80-95); MPV 9.3 fL (8.0-11.0); Platelet Count 602 10^3/uL (130-400); RBC 3.58 10^6/uL (4.36-5.78); RDW 15.9 % (11.8-14.1); RDW-SD 52.5 fL; WBC 12.43 10^3/uL (4.4-10.8)
--- NOTE | 2025-04-18 20:26 | DI.VRAD_ITS ---
PROCEDURE INFORMATION: Exam: XR Chest Exam date and time: 04/18/2025 7:51 PM Age: 34 years old Clinical indication: Device placement; Picc TECHNIQUE: Imaging protocol: Radiologic exam of the chest. Views: 1 view. COMPARISON: CR XR PORTABLE CHEST AP POST LINE 04/18/2025 7:44 PM FINDINGS: Tubes, catheters and devices: Right-sided PICC line has been repositioned with catheter tip now seen in the superior vena cava above the cavoatrial junction. Lungs: A few scattered parenchymal densities are seen bilaterally with no new mass or consolidation identified. Pleural spaces: No pneumothorax or pleural effusion detected. Heart/Mediastinum: Heart size is normal and vessel margins are sharply defined. Bones/joints: No acute osseous lesions are detected. IMPRESSION: 1. Interval repositioning of the right-sided PICC line with catheter tip now seen in the superior vena cava above the cavoatrial junction as above. 2. No other change in the radiographic appearance of the chest. Dictated and Authenticated by: Mahesh Macias MD. Orderin Davy Cho MD
[2025-04-18] MEDS: Melatonin 3 MG TAB 9 MG PO (20:30)
--- NOTE | 2025-04-18 20:30 | DI.VRAD_ITS ---
PROCEDURE INFORMATION: Exam: XR Chest Exam date and time: 04/18/2025 7:44 PM Age: 34 years old Clinical indication: Device placement; Picc TECHNIQUE: Imaging protocol: Radiologic exam of the chest. Views: 1 view. COMPARISON: CT CHEST WO 04/11/2025 5:46 PM FINDINGS: Tubes, catheters and devices: Right-sided PICC line has been positioned with the distal tip deflected posteriorly into the region of the azygos vein. Lungs: A few scattered parenchymal densities are again seen throughout both lung balderas bilaterally. Pleural spaces: No pneumothorax or pleural effusion detected. Heart/Mediastinum: Heart size is normal and vessel margins are sharply defined. Bones/joints: No acute osseous lesions are detected. IMPRESSION: Right-sided PICC line in position with distal tip deflected posteriorly into the azygos vein. Dictated and Authenticated by: Mahesh Macias MD. Orderin Davy Cho MD
[2025-04-18 20:52] LABS: ALT 324 U/L (16-63); AST 174 U/L (15-37); Albumin 2.2 g/dL (3.4-5.0); Alkaline Phosphatase 278 U/L (46-116); Anion Gap 8.5 mmol/L (3-11); BUN 20 mg/dL (7-18); Bilirubin, Total 0.3 mg/dL (0.2-1.0); CO2 27.5 mmol/L (21.0-32.0); Calcium 8.4 mg/dL (8.5-10.1); Chloride 104 mmol/L (98-107); Estimated GFR 124.00 (mL/min/1.73m2); Glucose 117 mg/dL (74-106); Potassium 4.3 mmol/L (3.5-5.1); Sodium 140 mmol/L (136-145); Total Protein 6.1 g/dL (6.4-8.2)
[2025-04-19] VITALS (10 sets, daily range): BP systolic 88–120; BP diastolic 59–84; PULSE 76–130; RESP 16; TEMP 36.1–37; O2SAT 95–98
[2025-04-19 00:37] LABS: Lab Add On Test DONE
[2025-04-19 00:46] LABS: C-Reactive Protein 2.59 mg/dL (<or=0.5)
[2025-04-19] MEDS: Ketorolac 15 MG/ML VIAL IVP ×4 (01:58→21:04)
[2025-04-19] MEDS: VANCOMYCIN/WATER (PEG) 1.25 GM/250 ML BAG IVPB (06:14)
[2025-04-19 06:31] LABS: Abs Immature Grans 0.21 10^3/uL (0.0-0.06); HCT 34.2 % (40.0-50.0); HGB 11.5 g/dL (13.5-17.5); Immature Grans % 1.4 %; MCH 30.1 pg (27.0-33.0); MCHC 33.6 % (32.0-36.0); MCV 90 fL (80-95); MPV 9.4 fL (8.0-11.0); Platelet Count 636 10^3/uL (130-400); RBC 3.82 10^6/uL (4.36-5.78); RDW 15.7 % (11.8-14.1); RDW-SD 50.9 fL; WBC 15.28 10^3/uL (4.4-10.8)
[2025-04-19 07:06] LABS: ALT 362 U/L (16-63); AST 186 U/L (15-37); Albumin 2.4 g/dL (3.4-5.0); Alkaline Phosphatase 276 U/L (46-116); Anion Gap 6.2 mmol/L (3-11); BUN 17 mg/dL (7-18); Bilirubin, Total 0.4 mg/dL (0.2-1.0); CO2 29.8 mmol/L (21.0-32.0); Calcium 8.9 mg/dL (8.5-10.1); Chloride 102 mmol/L (98-107); Estimated GFR 119.10 (mL/min/1.73m2); Glucose 104 mg/dL (74-106); Potassium 4.4 mmol/L (3.5-5.1); Sodium 138 mmol/L (136-145); Total Protein 6.8 g/dL (6.4-8.2)
--- NOTE | 2025-04-19 08:30 | RT.EKG_ITS ---
APPROVED REPORT Exam: Resting ECG Reason for Exam: Tele changes Patient Location: I HR:91 bpm ECG Measurements Heart Rate 91 AXIS OH 138 P 60 QRSd 95 QRS 67 QT 374 T 52 QTc 461 Conclusion Sinus rhythm...normal P axis, V-rate 50- 99 Normal Electrocardiogram
[2025-04-19] MEDS: Enoxaparin 40 MG/0.4 ML SYR SC (08:52)
[2025-04-19] MEDS: MAGNESIUM SULFATE 2 GM/50 ML BAG IV_INF ×2 (08:53→22:04)
[2025-04-19] MEDS: hydrOXYzine HCL 50 MG TAB PO ×2 (08:53→21:04)
[2025-04-19] MEDS: Acetaminophen 500 MG TAB 1000 MG PO ×2 (08:53→14:24)
[2025-04-19] MEDS: cloNIDine 0.1 MG TAB PO ×3 (08:53→21:04)
--- NOTE | 2025-04-19 09:12 | PDOC.CMPRO ---
Date of service: 04/19/25 Time of Service: 09:12 Care Management Progress Note Progress Note Text Progress Note Text: Johnathon was sitting up in bed when CM met with him. He was dozing at the time and stated that he was tired because he did not sleep well last night. He stated that staff kept waking him up to do vital signs etc. CM reported that when he is in SB status, he won't need VS taken during the night anymore, which he was happy to hear. CM reviewed the plan again with Johnathon and he is comfortable with the decisions made. CM kept the visit brief to allow Johnathon to rest. Discharge Potential Discharge Needs: PCP F/U Appt Anticipated Barriers to Discharge: Medical Status Patient/Family Education Needs: Review discharge instructions, discuss Ask Me Three Transportation: Private vehicle Plan: Amrit will transition to [facility] after his SANDRA on Tuesday to complete a 6 week course of IV antibiotics. Anticipate that Johnathon will be discharged home with no new services following treatment. He will follow up with his PCP and plan of care and transport with family. CM will follow and support discharge planning efforts. Social Determinants of Health Screening Social Determinants of health last assessed in clinic: 04/19/25 Will the Patient Participate in the Screening?: Yes Do you worry about having a steady place to live?: no Problems where you live: lack of heat, oven or stove not working, smoke detectors missing or not working and Carbon monoxide detectors missing or not working In the past 12 months, have you had to go without electric, gas, oil or water in your home?: yes 1. Within the past 12 months, we worried whether our food would run out before we got money to buy more.: Never true 2. Within the past 12 months, the food we bought just didn't last and we didn't have money to get more.: Never true Has lack of transportation kept you from medical appointments or from doing things needed for daily living?: yes Has anyone in your life made you feel unsafe or unsupported?: yes How often does anyone, including family and friends, physically hurt you?: Never How often does anyone, including family and friends, insult or talk down to you?: Sometimes How often does anyone, including family and friends, threaten you with harm?: Sometimes How often does anyone, including family and friends, scream or curse at you?: Sometimes HRSN Safety total score: 10 How hard is it for you to pay for the very basics like food, housing, medical care, and heating? Would you say it is:: Somewhat hard Do you want help finding or keeping work or a job?: I do not need or want help If for any reason you need help with day-to-day activities such as bathing, preparing meals, shopping, managing finances, etc., do you get the help you need?: I don?t need any help How often do you feel lonely or isolated from those around you?: Often Do you speak a language other than Slovenian at home?: No Does the patient want assistance with any of the above?: Yes Comments: pt reports homeless Health Related Social Needs Health related social needs: inadequate housing (Z59.1), transportation insecurity (Z59.82), material hardship(utilities) (Z59.12), problems related to housing/economic circumstances (Z59.89) and feeling lonely/isolated (Z60.8) Health related social needs details: homeless and needs resources
--- NOTE | 2025-04-19 09:28 | PGE_ITS ---
Date of Service Date of service: 04/19/25 Time of Service: : Assessment and Plan Assessment and plan (1) MRSA bacteremia: Status: Acute Assessment and plan: First blood cultures persistently positive Blood Cx from 04/15- still negative on 04/19 PICC placement - 04/18 completed for 6 weeks of antibiotics at least (2) Sepsis: Status: Resolved Assessment and plan: Ongoing improvement -initial WBC at 19 now 15 Continue to trend Initial CRP 24 now 2.59 continue to monitor (3) Endocarditis: Status: Acute Assessment and plan: Plan for [facility] for 04/22 arrival time for 814 4W TTE did not rule in vegetation As per Corona criteria during discussion with [facility] IR positive for endocarditis Plan for at least 6 weeks antibiotics from 04/15/25 ID consult if markers not trending down - at the time will consult for Hep C aggressive treatment VS conventional recommendation (4) V-tach: Status: Chronic Assessment and plan: One episode around 8:24 this morning with multiple 3-4 beat run of V. tach in the setting of point 3 Mag IV given No recurrence will continue to monitor on tele Consider beta-rachel for repeat episode (5) Cavitary lesion of lung: Status: Acute Assessment and plan: As seen on 04/[address]: Lesions been from hematogenous origin as per discussion with radiologist Dr. Garcia IMPRESSION: 1. There are multiple similar appearing partially cavitated nodular infiltrates throughout both lungs, the left lower lobe pleural based lesion , measuring 33 x 28 x 28 mm. Etiology of these multiple bilateral nodular infiltrates, given their appearance and patient's age the etiology is most likely infectious VS neoplastic. IR at [facility] consultation with Dr. Do: Declined for intervention at the time - and recommendation for ongoing Tx with antibiotics -Positive identification of lesions corresponding to septic emboli and recommendation for ongoing treatment as infectious -Most likely not neoplastic as per history, presentation and imaging - Consider repeating consult if not improvement?at this time progression is adequate ID [facility] consulted on 04/12 :As per Corona's criteria: Endocardititis criteria met and the patient should be treated for 6 weeks at least- pending SANDRA results -Echo findings still relevant to determine the extent of damage-TTE failed to rule in vegetations -LVEF 55-60% - Persistence of positive blood cultures and fevers while on IV vancomycin also factor in likelihood of endocarditis -Ongoing vancomycin with BOBBY at 0.5- multiple doses daily needed as per pharmacy and not a candidate for daily dosing - TB negative and HIV negative (6) Pain: Status: Acute Assessment and plan: Right ankle pain improving Continue pain management regimen with acetaminophen and as needed ketorolac- changed to scheduled d/t increased pain in the setting of opioid craving and increased anxiety consider changing ketorolac back to as needed when possible Patient reminded to keep boot when ambulating again today as recommended by ortho (7) Cellulitis of scalp: Status: Acute Assessment and plan: Resolving Surgical consult completed - no intervention recommended at the time (8) Closed fracture of distal end of right fibula: Status: Chronic Assessment and plan: Pain improved today , no swelling Ankle x-ray showed stable fracture no re-injury Pain as per point 5 Seen by PT (9) Opioid use disorder: Status: Acute Assessment and plan: symptoms managed but experiencing cravings Naltrexone offered - still thinking about it PRN hydroxyzine added with scheduled HS dose Continue to offer previous PRN meds when marija Yost contacted and the patient is not on their list Mentioned requiring to tbe weaned off suboxone at [place] prior to signing himself off- will ahve to contact PCP to get clarification on pt's statement about taking suboxone to be transitioned to methadone by PCP. (10) Hepatitis C infection: Status: Chronic Assessment and plan: new diagnosis? Considering repeat labs for hep C in 12 weeks versus hepathology/ GI consult Trend CMP - bloodwork pending (11) Cellulitis of right lower extremity: Status: Acute Assessment and plan: Resolved Discussed with Dr. Castillo Subjective Subjective Patient reports: no new complaints (but poor appetite), feels better, pain is less, tolerating liquids well, tolerating a regular diet, voiding w/o diffic ulty, flatus, bowel movement and other (less anxious and better control of craving- decided o not to try Naltrexone-would like to initiate meds w BLANCO when swing bed); denies diarrhea, nausea, vomiting, shortness of breath or fever Exam Narrative Exam Narrative: Right ear erythema and swelling resolving alert and oriented X 4 , no neurological deficit, clear lungs ,S1 S2 regular, no cardiac murmur, abdomen non-distended, soft , non-tender, moves all 4 est, no CVA tenderness, right lower extremity swelling/erythema resolved Objective Last Vital Signs Temp 36.9 C 04/19/25 08:06 Pulse 86 04/19/25 08:06 Resp 16 04/19/25 08:06 BP 120/84 04/19/25 08:06 Pulse Ox 97 04/19/25 08:06 Laboratory Results - last 24 hr 04/18/25 04/19/25 20:00 06:29 WBC 12.43 H 15.28 H RBC 3.58 L 3.82 L Hgb 10.8 L 11.5 L Hct 32.2 L 34.2 L MCV 90 90 MCH 30.2 30.1 MCHC 33.5 33.6 RDW 15.9 H 15.7 H Plt Count 602 H 636 H MPV 9.3 9.4 Immature Gran % 1.6 1.4 Neutrophils % 69.7 72.7 Lymphocytes % 19.3 16.8 Monocytes % 7.5 7.8 Eosinophils % 1.3 0.9 Basophils % 0.6 0.4 Nucleated RBC % 0.0 0.0 Absolute Neutrophils 8.66 H 11.11 H Absolute Lymphocytes 2.40 2.57 Absolute Monocytes 0.93 H 1.19 H Absolute Eosinophils 0.16 0.14 Absolute Basophils 0.07 0.06 Sodium 140 138 Potassium 4.3 4.4 Chloride 104 102 Carbon Dioxide 27.5 29.8 Anion Gap 8.5 6.2 BUN 20 H 17 Creatinine 0.7 0.8 Est GFR (CKD-EPI 2020) 124.00 119.10 Glucose 117 H 104 Calcium 8.4 L 8.9 Total Bilirubin 0.3 0.4 AST 174 H 186 H ALT 324 H 362 H Alkaline Phosphatase 278 H 276 H C-Reactive Protein 2.59 H Total Protein 6.1 L 6.8 Albumin 2.2 L 2.4 L Add-On Test Request DONE Time Spent with Patient Time Spent with Patient: >50 minutes Time was spent: preparing to see the patient(eg.review tests), obtaining and/or reviewing separately otained hiistory, ordering medications,tests, procedures, referring, communicating with other health child care coordinator, indepentently interpreting results, counseling the patient and care coordination
[2025-04-19 11:06] LABS: Vancomycin, Random 27.9 ug/mL
[2025-04-19] MEDS: Normal Saline Flush 10 ML SYR IVP ×2 (11:17→14:25)
[2025-04-19] MEDS: Nicotine 21 MG/24 HR PATCH TD (11:17)
[2025-04-19 14:18] LABS: Magnesium 2.0 mg/dL (1.8-2.4)
--- NOTE | 2025-04-19 16:08 | PT.INPN ---
PT Notes Visit Reasons: Sepsis,MRSA Bacteremia Physical Therapy Inpatient Progress Note Date: 04/19/2025 Dates of Service: 04/12/2025 through 04/19/2025 Precautions: Fall. Contact precautions for MRSA. Activity as tolerated. R fracture boot on and L post shoe on when OOB. Subjective: Patient has been cooperative and motivated to participate in PT. Again felt that he has good pain tolerance to not use walker for today's session. Stated that he has been able to do his exercises with less discomfort. Has been going to the bathroom on his own. Objective: General Observation: Wound noted in post-auricular area on the R with erythema to R temporoocciptal area. Iv access through the L UE. R ankle swelling diminished. Mental Status: Alert and oriented as to person, place, time, and purpose. Able to pay attention, focus, and respond appropriately. Pain: None reported Vital Signs: Closely monitored by nursing staff ROM: Cervical rotation to R WFL Cervical rotation to L WFL Cervical lateral flexion WFL Cervical lateral flexion to WFL Right Lower Extremity: Hip flexion WFL. Hip abduction WFL. Knee flexion WFL. Ankle dorsiflexion WFL. Ankle plantarflexion WFL. Left Lower Extremity: Hip flexion WFL. Hip abduction WFL. Knee flexion 0 degrees to 110 degrees. Knee extension 110 degrees-0. Ankle dorsiflexion to neutral only. Ankle plantarflexion WFL. Strength: Cerical rotaotrs R 4/5 Cervical rotators L 4/5 Cervical lateral flexor to R 4/5 Cervical lateral flexor to L 4/5 Right Lower Extremity: Hip flexors 4/5. Hip abductors 4/5. Knee flexors 3-/5. Knee extensors 3-/5. Ankle dorsiflexors 3-/5. Ankle plantarflexors 4-/5. Left Lower Extremity: Hip flexors 5/5. Hip abductors 5/5. Knee flexors 5/5. Knee extensors 5/5. Ankle dorsiflexors 5/5. Ankle plantarflexors 5/5. Bed Mobility/Transfers: Minimal cueing provided for use of B hands as needed for support, movement sequence, AD management, and posture to reduce fall risk and minimize pain report Rolling independent Supine to sit independent Sit to supine independent Sit to stand independent Stand to sit independent Gait: With fracture boot on R and post-op shoe on L, patient tolerated 300 [address] of [address] ambulation without front-wheeled walker. Reported 1-2/10 in the R ankle that resolved with rest. Mild antalgic gait but no LOB. Stairs: Negotiated 6 x 4-inch steps and 4 x 6-inch steps without holding onto B rails. 1-2/10 pain through ankle which subsided with rest. Balance: Static Sitting: Normal Dynamic Sitting: Normal Static Standing: Good Dynamic Standing: Fair Special Tests: Mobility Limitations Standardized Measure [facility] AM-PAC 6 clicks Basic Mobility Inpatient Short Form: Raw Score: 24 CMS Score: 0% deficit Informed Consent/Education: Patient was instructed in purpose of PT consult and plan of care. Agreeable to proceed with established PT POC to achieve personal goals. Assessment: Patient has demonstrated significant functional gains for this period of care in terms of pain tolerance, cervical and ankle range of motion, and mobility level. Per CM, patient will transition to swing bed level I of care for antibiotic treatment. PT to assess ambulation ability over uneven ground surfaces outside hospital premises and discontinue services once safe to do so. Patient has been made independent to navigate [facility] with fracture boot on R and post-op shoe on L. Patient was advised that contact precautions be maintained at all times during said walks. Charge nurse Latrciia updated about this plan and is agreeable. Patient presents with clinical signs and symptoms consistent with current/admitting diagnoses that have resulted to mobility limitations, gait instability, generalized weakness, and overall ADL decline as demonstrated by the following impairment level findings: 1. Decreased strength to R ankle muscle groups 2. Impaired standing balance 3. Impaired activity tolerance Impairments are contributing to the following functional limitations: 1. Increased completion time for mobility ADL performance 2. Impaired ability to navigate over uneven ground surfaces Patient is [place] a 48139 low complexity based on the following: History: 34-year-old male with past medical history as indicated above Examination: As above Presentation: Stable Decision Makin low complexity Goals: Goals X1 week 1. Supine-Sit independent MET, DISCONTINUE 2. Sit-Supine independent MET, DISCONTINUE 3. Sit-Stand independent MET, DISCONTINUE 4. Stand-Sit independent with no assistive device MET, DISCONTINUE 5. Bed-Chair independent with no assistive device MET, DISCONTINUE 6. Chair-Bed independent with no assistive device MET, DISCONTINUE 7. Independent gait on level surface with use of no assistive device for at least 300 feet without report of pain nor dyspnea8. MET, DISCONTINUE 8. Normal static and dynamic standing balance/tolerance NOT MET, CONTINUE 9. Independent with HEP performance MET, DISCONTINUE 10. Patient will wear appropriate footwear on the L side to equalize leg length on B LE to help with balance during walking MET, DISCONTINUE 11. NEW GOAL OF 04/19/2025: Patient will navigate unven ground surfaces of up to 1000 feet using R fracture boot and L post-op shoe safely to facilitate return to prior community ambulation level. Plan of Care/Treatment Plan: 3/week for 2 weeks for continued mobility progression as above. Plan of care has been reviewed with the CERTIFIED VETERINARY TECHNICIAN providing the service under Physical Therapy direction. Initiate Physical Therapy intervention for pain management as needed, strengthening, bed mobility, transfers, gait, stairs, balance training, and use of assistive device. DISCHARGE RECOMMENDATIONS: OP PT TREATMENT CODE/TIME: 59971 x 2 units. Thank you for the opportunity to participate in the care of this patient. Viri Francois PT, DPT, CLT [facility] [place], [place]
[2025-04-19] MEDS: VANCOMYCIN/WATER (PEG) 1.5 GM/300 ML BAG IVPB (17:37)
[2025-04-19] MEDS: Melatonin 3 MG TAB 9 MG PO (21:04)
[2025-04-20] VITALS (8 sets, daily range): BP systolic 87–113; BP diastolic 58–81; PULSE 80–107; RESP 16–20; TEMP 36.4–37.1; O2SAT 97–100
[2025-04-20] MEDS: VANCOMYCIN/WATER (PEG) 1.5 GM/300 ML BAG IVPB ×2 (06:07→17:41)
[2025-04-20] MEDS: hydrOXYzine HCL 50 MG TAB PO ×2 (06:21→20:14)
[2025-04-20 06:41] LABS: Abs Immature Grans 0.15 10^3/uL (0.0-0.06); HCT 34.3 % (40.0-50.0); HGB 11.4 g/dL (13.5-17.5); Immature Grans % 1.3 %; MCH 29.7 pg (27.0-33.0); MCHC 33.2 % (32.0-36.0); MCV 89 fL (80-95); MPV 9.3 fL (8.0-11.0); Platelet Count 633 10^3/uL (130-400); RBC 3.84 10^6/uL (4.36-5.78); RDW 15.9 % (11.8-14.1); RDW-SD 52.0 fL; WBC 11.96 10^3/uL (4.4-10.8)
[2025-04-20 06:55] LABS: C-Reactive Protein 2.25 mg/dL (<or=0.5)
[2025-04-20 06:59] LABS: ALT 413 U/L (16-63); AST 239 U/L (15-37); Albumin 2.3 g/dL (3.4-5.0); Alkaline Phosphatase 286 U/L (46-116); Anion Gap 4.7 mmol/L (3-11); BUN 20 mg/dL (7-18); Bilirubin, Total 0.3 mg/dL (0.2-1.0); CO2 30.3 mmol/L (21.0-32.0); Calcium 8.4 mg/dL (8.5-10.1); Chloride 101 mmol/L (98-107); Estimated GFR 119.10 (mL/min/1.73m2); Glucose 105 mg/dL (74-106); Magnesium 2.1 mg/dL (1.8-2.4); Potassium 4.6 mmol/L (3.5-5.1); Sodium 136 mmol/L (136-145); Total Protein 6.8 g/dL (6.4-8.2)
[2025-04-20] MEDS: cloNIDine 0.1 MG TAB PO ×3 (10:18→20:15)
[2025-04-20] MEDS: Enoxaparin 40 MG/0.4 ML SYR SC (10:18)
[2025-04-20] MEDS: Acetaminophen 500 MG TAB 1000 MG PO (10:50)
[2025-04-20] MEDS: Nicotine 21 MG/24 HR PATCH TD (12:14)
--- NOTE | 2025-04-20 15:35 | W.PM.PROGNOT ---
Date of Service Date of service: 04/20/25 Time of Service: 15:35 Assessment and Plan Assessment and plan (1) MRSA bacteremia: Status: Acute Assessment and plan: Blood Cx from 04/15- negative to date PICC placement on 04/18 [facility] scheduled for Tuesday at [facility] (2) Endocarditis: Status: Acute Assessment and plan: Plan for [facility]A for 04/22 arrival time for 814 4W TTE did not rule in vegetation As per Corona criteria during discussion with [facility] IR positive for endocarditis Plan for at least 6 weeks antibiotics from 04/15/25 ID consult if markers not trending down - at the time will consult for Hep C aggressive treatment VS conventional recommendation (3) V-tach: Status: Acute Assessment and plan: asymptomatic Mag IV given No recurrence will continue to monitor on tele Consider beta-rachel for repeat episode (4) Cavitary lesion of lung: Status: Acute Assessment and plan: As seen on 04/[address]: Lesions been from hematogenous origin as per discussion with radiologist Dr. Garcia IMPRESSION: 1. There are multiple similar appearing partially cavitated nodular infiltrates throughout both lungs, the left lower lobe pleural based lesion , measuring 33 x 28 x 28 mm. Etiology of these multiple bilateral nodular infiltrates, given their appearance and patient's age the etiology is most likely infectious VS neoplastic. IR at [facility] consultation with Dr. Do: Declined for intervention at the time - and recommendation for ongoing Tx with antibiotics -Positive identification of lesions corresponding to septic emboli and recommendation for ongoing treatment as infectious -Most likely not neoplastic as per history, presentation and imaging - Consider repeating consult if not improvement?at this time progression is adequate ID [facility] consulted on 04/12 :As per Corona's criteria: Endocardititis criteria met and the patient should be treated for 6 weeks at least- pending SANDRA results -Echo findings still relevant to determine the extent of damage-TTE failed to rule in vegetations -LVEF 55-60% - Persistence of positive blood cultures and fevers while on IV vancomycin also factor in likelihood of endocarditis -Ongoing vancomycin with BOBBY at 0.5- multiple doses daily needed as per pharmacy and not a candidate for daily dosing - TB negative and HIV negative (5) Pain: Status: Acute Assessment and plan: Right ankle pain improving Continue pain management regimen with acetaminophen and now celebrex (completed 5 days of toradol) changed to scheduled d/t increased pain in the setting of opioid craving and increased anxiety Patient reminded to keep boot when ambulating again today as recommended by ortho (6) Cellulitis of scalp: Status: Acute Assessment and plan: Resolving Surgical consult completed - no intervention recommended at the time (7) Closed fracture of distal end of right fibula: Status: Chronic Assessment and plan: repeat Ankle x-ray on 04/15 showed stable fracture no re-injury Seen by PT (8) Opioid use disorder: Status: Acute Assessment and plan: symptoms managed but experiencing cravings Naltrexone offered - still thinking about it PRN hydroxyzine added with scheduled HS dose Continue to offer previous PRN meds when due STELLA Yost contacted and the patient is not on their list (9) Hepatitis C infection: Status: Chronic Assessment and plan: new diagnosis? Considering repeat labs for hep C in 12 weeks versus hepathology/ GI consult Trend CMP - bloodwork pending (10) Cellulitis of right lower extremity: Status: Acute Assessment and plan: Resolved Discussed with Dr. Etienne Subjective Subjective Patient reports: still having pain (Reporting the pain worsened since Toradol discontinued), tolerating liquids well, tolerating a regular diet and afebrile; denies shortness of breath Exam Narrative Exam Narrative: Thin chronically ill-appearing male older than stated age head is atraumatic skin ashen warm and dry neurologic he is awake alert oriented no focal deficits psychiatric appropriate mood and affect eyes nonicteric noninjected oromucosa slightly dry moves all extremities respirations even and unlabored abdomen benign, pain and swelling to right lateral ankle. no obvious deformity Objective Last Vital Signs Temp 36.4 C L 04/20/25 15:15 Pulse 99 H 04/20/25 15:15 Resp 16 04/20/25 15:15 BP 95/74 L 04/20/25 15:15 Pulse Ox 100 04/20/25 15:15 Laboratory Results - last 24 hr 04/20/25 06:10 WBC 11.96 H RBC 3.84 L Hgb 11.4 L Hct 34.3 L MCV 89 MCH 29.7 MCHC 33.2 RDW 15.9 H Plt Count 633 H MPV 9.3 Immature Gran % 1.3 Neutrophils % 68.9 Lymphocytes % 18.9 Monocytes % 9.1 Eosinophils % 1.1 Basophils % 0.7 Nucleated RBC % 0.0 Absolute Neutrophils 8.24 H Absolute Lymphocytes 2.26 Absolute Monocytes 1.09 H Absolute Eosinophils 0.13 Absolute Basophils 0.08 Sodium 136 Potassium 4.6 Chloride 101 Carbon Dioxide 30.3 Anion Gap 4.7 BUN 20 H Creatinine 0.8 Est GFR (CKD-EPI 2020) 119.10 Glucose 105 Calcium 8.4 L Magnesium 2.1 Total Bilirubin 0.3 AST 239 H ALT 413 H Alkaline Phosphatase 286 H C-Reactive Protein 2.25 H Total Protein 6.8 Albumin 2.3 L Time Spent with Patient Time Spent with Patient: 35-49 minutes Time was spent: preparing to see the patient(eg.review tests), obtaining and/or reviewing separately otained hiistory, ordering medications,tests, procedures, indepentently interpreting results and counseling the patient
[2025-04-20] MEDS: Celecoxib 200 MG CAP PO ×2 (16:02→20:14)
[2025-04-20] MEDS: Normal Saline Flush 10 ML SYR IVP ×2 (17:44→20:16)
[2025-04-20] MEDS: Melatonin 3 MG TAB 9 MG PO (20:15)
[2025-04-21 03:45] VITALS: BP 81/56; PULSE 85; RESP 18; TEMP 36.1; O2SAT 99
[2025-04-21] MEDS: VANCOMYCIN/WATER (PEG) 1.5 GM/300 ML BAG IVPB ×2 (05:21→18:21)
[2025-04-21 05:25] VITALS: BP 95/70
[2025-04-21] MEDS: Normal Saline Flush 10 ML SYR IVP ×3 (07:33→19:57)
[2025-04-21] MEDS: Pantoprazole 40 MG TABCR PO (07:33)
[2025-04-21 07:54] VITALS: BP 91/74; PULSE 77; RESP 16; TEMP 36.5; O2SAT 99
[2025-04-21] MEDS: Enoxaparin 40 MG/0.4 ML SYR SC (09:05)
[2025-04-21] MEDS: Celecoxib 200 MG CAP PO ×2 (09:06→19:58)
[2025-04-21] MEDS: cloNIDine 0.1 MG TAB PO ×3 (09:06→19:59)
[2025-04-21] MEDS: Nicotine 21 MG/24 HR PATCH TD (13:43)
[2025-04-21 15:19] VITALS: BP 97/68; PULSE 89; RESP 15; TEMP 36.6; O2SAT 94
--- NOTE | 2025-04-21 17:13 | W.PM.PROGNOT ---
Date of Service Date of service: 04/21/25 Time of Service: 17:13 Assessment and Plan Assessment and plan (1) MRSA bacteremia: Status: Acute Assessment and plan: Blood Cx from 04/15- negative to date PICC placement on 04/18 [facility]DR[facility] scheduled for Tuesday at [facility] (2) Endocarditis: Status: Acute Assessment and plan: Plan for [facility] for 04/22 arrival time for 814 4W TTE did not rule in vegetation As per Corona criteria during discussion with [facility] IR positive for endocarditis Plan for at least 6 weeks antibiotics from 04/15/25 ID consult if markers not trending down - at the time will consult for Hep C aggressive treatment VS conventional recommendation (3) V-tach: Status: Acute Assessment and plan: asymptomatic Mag IV given No recurrence will continue to monitor on tele Consider beta-rachel for repeat episode (4) Cavitary lesion of lung: Status: Acute Assessment and plan: As seen on 04/[address]: Lesions been from hematogenous origin as per discussion with radiologist Dr. Garcia IMPRESSION: 1. There are multiple similar appearing partially cavitated nodular infiltrates throughout both lungs, the left lower lobe pleural based lesion , measuring 33 x 28 x 28 mm. Etiology of these multiple bilateral nodular infiltrates, given their appearance and patient's age the etiology is most likely infectious VS neoplastic. IR at [facility] consultation with Dr. Do: Declined for intervention at the time - and recommendation for ongoing Tx with antibiotics -Positive identification of lesions corresponding to septic emboli and recommendation for ongoing treatment as infectious -Most likely not neoplastic as per history, presentation and imaging - Consider repeating consult if not improvement?at this time progression is adequate ID [facility] consulted on 04/12 :As per Corona's criteria: Endocardititis criteria met and the patient should be treated for 6 weeks at least- pending SANDRA results -Echo findings still relevant to determine the extent of damage-TTE failed to rule in vegetations -LVEF 55-60% - Persistence of positive blood cultures and fevers while on IV vancomycin also factor in likelihood of endocarditis -Ongoing vancomycin with BOBBY at 0.5- multiple doses daily needed as per pharmacy and not a candidate for daily dosing - TB negative and HIV negative (5) Pain: Status: Acute Assessment and plan: Right ankle pain improving Continue pain management regimen with acetaminophen and now celebrex (completed 5 days of toradol) changed to scheduled d/t increased pain in the setting of opioid craving and increased anxiety Patient reminded to keep boot when ambulating again today as recommended by ortho (6) Cellulitis of scalp: Status: Acute Assessment and plan: Resolving Surgical consult completed - no intervention recommended at the time (7) Closed fracture of distal end of right fibula: Status: Chronic Assessment and plan: repeat Ankle x-ray on 04/15 showed stable fracture no re-injury Seen by PT (8) Opioid use disorder: Status: Acute Assessment and plan: symptoms managed but experiencing cravings Naltrexone offered - still thinking about it PRN hydroxyzine added with scheduled HS dose Continue to offer previous PRN meds when due STELLA Yost contacted and the patient is not on their list (9) Hepatitis C infection: Status: Chronic Assessment and plan: new diagnosis? Considering repeat labs for hep C in 12 weeks versus hepathology/ GI consult Trend CMP - bloodwork pending (10) Cellulitis of right lower extremity: Status: Acute Assessment and plan: Resolved Discussed with Dr. Etienne Subjective Subjective Patient reports: no new complaints, still having pain, tolerating liquids well, tolerating a regular diet and afebrile Exam Narrative Exam Narrative: Thin chronically ill-appearing male older than stated age head is atraumatic skin ashen warm and dry neurologic he is awake alert oriented no focal deficits psychiatric appropriate mood and affect eyes nonicteric noninjected oromucosa slightly dry moves all extremities respirations even and unlabored abdomen benign, pain and swelling to right lateral ankle. no obvious deformity Objective Last Vital Signs Temp 36.6 C 04/21/25 15:19 Pulse 89 04/21/25 15:19 Resp 15 04/21/25 15:19 BP 97/68 L 04/21/25 15:19 Pulse Ox 94 04/21/25 15:19 Time Spent with Patient Time Spent with Patient: 35-49 minutes Time was spent: preparing to see the patient(eg.review tests), obtaining and/or reviewing separately otained hiistory, ordering medications,tests, procedures, indepentently interpreting results and care coordination
[2025-04-21 19:08] VITALS: BP 104/68; PULSE 95; RESP 22; TEMP 37.1; O2SAT 99
[2025-04-21] MEDS: Melatonin 3 MG TAB 9 MG PO (19:58)
[2025-04-21] MEDS: hydrOXYzine HCL 50 MG TAB PO (19:58)
[2025-04-21 23:30] VITALS: BP 95/63; PULSE 92; RESP 18; TEMP 36.2; O2SAT 95
[2025-04-22 02:58] VITALS: BP 97/71; PULSE 72; RESP 16; TEMP 35.4; O2SAT 97
[2025-04-22] MEDS: VANCOMYCIN/WATER (PEG) 1.5 GM/300 ML BAG IVPB ×2 (05:29→17:25)
--- NOTE | 2025-04-22 08:48 | CMPROGNOTE_ITS ---
Date of service: 04/22/25 Time of Service: 08:48 Care Management Progress Note Progress Note Text Progress Note Text: [place] [facility] [place]. When CM met with him he was lying in bed and appeared very tired. He confirmed that when asked. He shared that both the long ambulance ride down and back along with having the procedure itself was very tiring. Johnathon will be transitioned to SB-1 tomorrow. The provider did not receive the report from the SANDRA upon his return and prefered to wait to discharge him into SB status until she had that information. Discharge Potential Discharge Needs: PCP F/U Appt Anticipated Barriers to Discharge: Medical Status Patient/Family Education Needs: Review discharge instructions, discuss Ask Me Three Transportation: Private vehicle Plan: Johnathon will transition to SB-1 after his SANDRA on Tuesday to complete a 6 week course of IV antibiotics. Anticipate that Johnathon will be discharged home with no new services following treatment. He will follow up with his PCP and plan of care and transport with family. CM will follow and support discharge planning efforts. Social Determinants of Health Screening Social Determinants of health last assessed in clinic: 04/22/25 Will the Patient Participate in the Screening?: Yes Do you worry about having a steady place to live?: no Problems where you live: lack of heat, oven or stove not working, smoke detectors missing or not working and Carbon monoxide detectors missing or not working In the past 12 months, have you had to go without electric, gas, oil or water in your home?: yes 1. Within the past 12 months, we worried whether our food would run out before we got money to buy more.: Never true 2. Within the past 12 months, the food we bought just didn't last and we didn't have money to get more.: Never true Has lack of transportation kept you from medical appointments or from doing things needed for daily living?: yes Has anyone in your life made you feel unsafe or unsupported?: yes How often does anyone, including family and friends, physically hurt you?: Never How often does anyone, including family and friends, insult or talk down to you?: Sometimes How often does anyone, including family and friends, threaten you with harm?: Sometimes How often does anyone, including family and friends, scream or curse at you?: Sometimes HRSN Safety total score: 10 How hard is it for you to pay for the very basics like food, housing, medical care, and heating? Would you say it is:: Somewhat hard Do you want help finding or keeping work or a job?: I do not need or want help If for any reason you need help with day-to-day activities such as bathing, preparing meals, shopping, managing finances, etc., do you get the help you need?: I don?t need any help How often do you feel lonely or isolated from those around you?: Often Do you speak a language other than Japanese at home?: No Does the patient want assistance with any of the above?: Yes Comments: pt reports homeless Health Related Social Needs Health related social needs: inadequate housing (Z59.1), transportation insecurity (Z59.82), material hardship(utilities) (Z59.12), problems related to housing/economic circumstances (Z59.89) and feeling lonely/isolated (Z60.8) Health related social needs details: homeless and needs resources
--- NOTE | 2025-04-22 10:46 | W.PM.PROGNOT ---
Date of Service Date of service: 04/22/25 Time of Service: 10:46 Assessment and Plan Assessment and plan (1) MRSA bacteremia: Status: Acute Assessment and plan: Blood Cx from 04/15- negative to date PICC placement on 04/18 SANDRA today negative for vegetations Will change to swing bed status tomorrow since SANDRA is negative. (2) Endocarditis: Status: Acute Assessment and plan: As per [place] criteria during discussion with [facility] IR positive for endocarditis Plan for at least 6 weeks antibiotics from 04/15/25 ID consult if markers not trending down - at the time will consult for Hep C aggressive treatment VS conventional recommendation (3) Cavitary lesion of lung: Status: Acute Assessment and plan: As seen on 04/[address]: Lesions been from hematogenous origin as per discussion with radiologist Dr. Garcia IMPRESSION: 1. There are multiple similar appearing partially cavitated nodular infiltrates throughout both lungs, the left lower lobe pleural based lesion , measuring 33 x 28 x 28 mm. Etiology of these multiple bilateral nodular infiltrates, given their appearance and patient's age the etiology is most likely infectious VS neoplastic. IR at [facility] consultation with Dr. Do: Declined for intervention at the time - and recommendation for ongoing Tx with antibiotics -Positive identification of lesions corresponding to septic emboli and recommendation for ongoing treatment as infectious -Most likely not neoplastic as per history, presentation and imaging - Consider repeating consult if not improvement?at this time progression is adequate ID [facility] consulted on 04/12 :As per [place]'s criteria: Endocardititis criteria met and the patient should be treated for 6 weeks at least- pending SANDRA results -Echo findings still relevant to determine the extent of damage-TTE failed to rule in vegetations -LVEF 55-60% - Persistence of positive blood cultures and fevers while on IV vancomycin also factor in likelihood of endocarditis -Ongoing vancomycin with BOBBY at 0.5- multiple doses daily needed as per pharmacy and not a candidate for daily dosing - TB negative and HIV negative (4) Pain: Status: Acute Assessment and plan: Right ankle pain improving Continue pain management regimen with acetaminophen and now celebrex (completed 5 days of toradol) changed to scheduled d/t increased pain in the setting of opioid craving and increased anxiety Patient reminded to keep boot when ambulating again today as recommended by ortho (5) Opioid use disorder: Status: Acute Assessment and plan: symptoms managed but experiencing cravings Naltrexone offered - still thinking about it PRN hydroxyzine added with scheduled HS dose Continue to offer previous PRN meds when due STELLA [facility] contacted and the patient is not on their list (6) Hepatitis C infection: Status: Chronic Assessment and plan: new diagnosis? Considering repeat labs for hep C in 12 weeks versus hepathology/ GI consult Trend CMP Liver fxn increased AST 239 ALT 413 Alk Phos 286 (7) Cellulitis of right lower extremity: Status: Acute Assessment and plan: Resolved Discussed with Dr. Etienne (8) Closed fracture of distal end of right fibula: Status: Chronic Assessment and plan: repeat Ankle x-ray on 04/15 showed stable fracture no re-injury Seen by PT (9) Cellulitis of scalp: Status: Chronic Assessment and plan: Resolving Surgical consult completed - no intervention recommended at the time (10) V-tach: Status: Resolved Assessment and plan: No recurrence will continue to monitor on tele Consider beta-rachel for repeat episode Discussed with Dr Etienne. Subjective Subjective Patient reports: no new complaints, tolerating liquids well, tolerating a regular diet, voiding w/o difficulty, bowel movement and afebrile; denies diarrhea or vomiting Interval history since last seen: Patient went to [facility] down and back for SANDRA today, he has no new complaints on return. He is eating and drinking without issue. Exam Narrative Exam Narrative: Chronically ill-appearing male, appears older than stated age. Head: Atraumatic. Skin: Ashen in color, warm and dry. Neurologic: Awake, alert, oriented ?3; no focal deficits. Psychiatric: Appropriate mood and affect. Eyes: Non-icteric, non-injected. Oropharynx: Oral mucosa slightly dry. Extremities: Moves all extremities spontaneously. Respiratory: Even and unlabored respirations. Abdomen: Soft, non-tender, non-distended; benign. Musculoskeletal: Pain and swelling noted over the right lateral ankle; no obvious deformity. Objective Last Vital Signs Temp 35.4 C L 04/22/25 02:58 Pulse 72 04/22/25 02:58 Resp 16 04/22/25 02:58 BP 97/71 L 04/22/25 02:58 Pulse Ox 97 04/22/25 02:58 Time Spent with Patient Time Spent with Patient: 25-34 minutes Time was spent: preparing to see the patient(eg.review tests), ordering medications,tests, procedures, referring, communicating with other health health care assistant, indepentently interpreting results, counseling the patient and care coordination
[2025-04-22] MEDS: hydrOXYzine HCL 50 MG TAB PO ×2 (12:40→20:24)
[2025-04-22] MEDS: Nicotine 21 MG/24 HR PATCH TD (12:40)
[2025-04-22] MEDS: cloNIDine 0.1 MG TAB PO ×2 (13:12→20:25)
[2025-04-22 13:21] VITALS: BP 112/77; PULSE 93; RESP 16; TEMP 36.5; O2SAT 97
[2025-04-22 19:10] VITALS: BP 106/80; PULSE 128; RESP 17; TEMP 38; O2SAT 97
[2025-04-22] MEDS: Melatonin 3 MG TAB 9 MG PO (20:24)
[2025-04-22] MEDS: Celecoxib 200 MG CAP PO (20:24)
[2025-04-22] MEDS: Acetaminophen 325 MG TAB 650 MG PO (20:25)
[2025-04-22 20:43] VITALS: PULSE 130
[2025-04-22 21:47] VITALS: TEMP 35.7
[2025-04-22 23:03] VITALS: BP 94/64; PULSE 118; RESP 17; TEMP 36.1; O2SAT 98
[2025-04-23] VITALS (7 sets, daily range): BP systolic 85–113; BP diastolic 57–79; PULSE 82–99; RESP 14–17; TEMP 36.1–36.6; O2SAT 96–99
[2025-04-23] MEDS: VANCOMYCIN/WATER (PEG) 1.5 GM/300 ML BAG IVPB (05:59)
[2025-04-23] MEDS: Pantoprazole 40 MG TABCR PO (06:41)
[2025-04-23 06:54] LABS: Abs Immature Grans 0.04 10^3/uL (0.0-0.06); HCT 35.9 % (40.0-50.0); HGB 11.8 g/dL (13.5-17.5); Immature Grans % 0.6 %; MCH 29.7 pg (27.0-33.0); MCHC 32.9 % (32.0-36.0); MCV 90 fL (80-95); MPV 9.4 fL (8.0-11.0); Platelet Count 504 10^3/uL (130-400); RBC 3.97 10^6/uL (4.36-5.78); RDW 15.6 % (11.8-14.1); RDW-SD 52.1 fL; WBC 6.97 10^3/uL (4.4-10.8)
[2025-04-23 07:06] LABS: Anion Gap 5.8 mmol/L (3-11); BUN 26 mg/dL (7-18); CO2 33.2 mmol/L (21.0-32.0); Calcium 9.0 mg/dL (8.5-10.1); Chloride 100 mmol/L (98-107); Estimated GFR 119.10 (mL/min/1.73m2); Glucose 113 mg/dL (74-106); Magnesium 2.1 mg/dL (1.8-2.4); Potassium 4.1 mmol/L (3.5-5.1); Sodium 139 mmol/L (136-145)
[2025-04-23] MEDS: Celecoxib 200 MG CAP PO (08:23)
[2025-04-23] MEDS: Normal Saline Flush 10 ML SYR IVP (08:23)
[2025-04-23] MEDS: Enoxaparin 40 MG/0.4 ML SYR SC (08:23)
[2025-04-23 09:11] LABS: Cannabinoids THC Positive (Negative); METHADONE URINE SCREEN Negative (Negative)
--- NOTE | 2025-04-23 09:32 | PT.INTREAT ---
PT Notes Visit Reasons: Sepsis,MRSA Bacteremia Date: 04/23/25 PRECAUTIONS: Fall. Contact precautions for MRSA. Activity as tolerated. R fracture boot on and L post shoe on when OOB. SUBJECTIVE: Pt in bed when approached for therapy this morning, not dressed yet but reports he could get ready and is looking forward to getting a chance to work outdoors with gait training and stairs negotiation. OBJECTIVE: ? PAIN: VITALS: Closely monitored by nursing Therapeutic Activities 80105: Direct one-on-one instruction in dynamic activities to improve functional performance. ?? BED MOBILITY/TRANSFERS? Rolling L/R: independent Supine-sit: ?independent? Sit-supine: ? independent? Sit-stand: ? ?independent? Stand-sit: ??independent ? Bed-Chair:? ?independent ? Chair-bed: independent Provided skilled cues and instruction on performance and technique throughout. Gait Training [id number]: Direct one-on-one instruction and skilled instruction in: Employing an assistive device Modified weight-bearing status Movement sequencing Turning and movement with proper form Provided verbal cues for equipment management and technique Provided instruction in gait pattern Patient education regarding pacing and breathing techniques to maximize activity tolerance? GAIT? Assistive Device: ?cane? Weight bearing: WBAT Assist: ? independent ? Distance:?? Community distances (walked from second floor to parking lot, around the length of the parking lot and back to second floor. ? Deviation: ? With fracture boot on R and normal shoe on L. Reported 1-2/10 in the R ankle that resolved with rest. Mild antalgic gait but no LOB. ? STAIRS:? ?Building stairs 14 step up and down, step through gait pattern 1 handrail support? supervision? ASSESSMENT:?Pt tolerated activity well, took rest break per 10mins of walking to allow for RLE to rest and avoid pain from escalating. pt education about wearing fracture boots when walking outdoors to facilitate bone healing. PLAN: Continue with balance training, global strengthening and general conditioning for improved safety, mobility and activity tolerance until pt is ready for DC. TREATMENT CODE/TIME: [id number], [id number] 40mins (8:54-9:34am)
[2025-04-23] MEDS: Nicotine 21 MG/24 HR PATCH TD (11:20)
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
[2025-04-23] MEDS: cloNIDine 0.1 MG TAB PO (13:40)
--- NOTE | 2025-04-23 18:25 | PDOC.CMPRO ---
Date of service: 04/23/25 Time of Service: 18:26 Care Management Progress Note Progress Note Text Progress Note Text: Johnathon will be discharged from inpatient status and admitted into -1 today to complete a course of IV antibiotics. He will complete treatment at the end of April. medicaid will be the payer source. Social Determinants of Health Screening Social Determinants of health last assessed in clinic: 04/23/25 Will the Patient Participate in the Screening?: Yes Do you worry about having a steady place to live?: no Problems where you live: lack of heat, oven or stove not working, smoke detectors missing or not working and Carbon monoxide detectors missing or not working In the past 12 months, have you had to go without electric, gas, oil or water in your home?: yes 1. Within the past 12 months, we worried whether our food would run out before we got money to buy more.: Never true 2. Within the past 12 months, the food we bought just didn't last and we didn't have money to get more.: Never true Has lack of transportation kept you from medical appointments or from doing things needed for daily living?: yes Has anyone in your life made you feel unsafe or unsupported?: yes How often does anyone, including family and friends, physically hurt you?: Never How often does anyone, including family and friends, insult or talk down to you?: Sometimes How often does anyone, including family and friends, threaten you with harm?: Sometimes How often does anyone, including family and friends, scream or curse at you?: Sometimes [facility] Safety total score: 10 How hard is it for you to pay for the very basics like food, housing, medical care, and heating? Would you say it is:: Somewhat hard Do you want help finding or keeping work or a job?: I do not need or want help If for any reason you need help with day-to-day activities such as bathing, preparing meals, shopping, managing finances, etc., do you get the help you need?: I don?t need any help How often do you feel lonely or isolated from those around you?: Often Do you speak a language other than Albanian at home?: No Does the patient want assistance with any of the above?: Yes Comments: pt reports homeless Health Related Social Needs Health related social needs: inadequate housing (Z59.1), transportation insecurity (Z59.82), material hardship(utilities) (Z59.12), problems related to housing/economic circumstances (Z59.89) and feeling lonely/isolated (Z60.8) Health related social needs details: homeless and needs resources
--- NOTE | 2025-04-23 18:28 | CM.SWINGPC ---
Date of service: 04/23/25 Time of Service: 18:28 Swingbed Plan of Care Activites/Discharge Plan of care: SWING BED PROGRAM ACTIVITIES/DISCHARGE PLAN OF CARE ACTIVITIES PLAN Date: Identified Need: Intervention/Plan: Initials DISCHARGE PLAN Date: Identified Need: Intervention/Plan: Initials
--- NOTE | 2025-05-02 18:55 | CMPROGNOTE_ITS ---
Date of service: 05/02/25 Time of Service: 18:55 Care Management Progress Note Progress Note Text Progress Note Text: Johnathon had another episode of fever on 04/30/25 and blood cultures were obtained. This morning one was reported as positive growing gram negative rods. His other cultured grew MRSA so a change in the treatment plan is indicated. He will be transitioned back to acute inpatient status later today. Discharge Anticipated Barriers to Discharge: Medical Status Patient/Family Education Needs: Review discharge instructions, discuss Ask Me Three Transportation: Other (to be determined by disposition) Plan: Johnathon will be transferred back to acute status following a febrile episode and the Social Determinants of Health Screening Social Determinants of health last assessed in clinic: 05/02/25 Will the Patient Participate in the Screening?: Yes Do you worry about having a steady place to live?: no Problems where you live: lack of heat, oven or stove not working, smoke detectors missing or not working and Carbon monoxide detectors missing or not working In the past 12 months, have you had to go without electric, gas, oil or water in your home?: yes 1. Within the past 12 months, we worried whether our food would run out before we got money to buy more.: Never true 2. Within the past 12 months, the food we bought just didn't last and we didn't have money to get more.: Never true Has lack of transportation kept you from medical appointments or from doing things needed for daily living?: yes Has anyone in your life made you feel unsafe or unsupported?: yes How often does anyone, including family and friends, physically hurt you?: Never How often does anyone, including family and friends, insult or talk down to you?: Sometimes How often does anyone, including family and friends, threaten you with harm?: Sometimes How often does anyone, including family and friends, scream or curse at you?: Sometimes HRSN Safety total score: 10 How hard is it for you to pay for the very basics like food, housing, medical care, and heating? Would you say it is:: Somewhat hard Do you want help finding or keeping work or a job?: I do not need or want help If for any reason you need help with day-to-day activities such as bathing, preparing meals, shopping, managing finances, etc., do you get the help you need?: I don?t need any help How often do you feel lonely or isolated from those around you?: Often Do you speak a language other than [place] at home?: No Does the patient want assistance with any of the above?: Yes Comments: pt reports homeless Health Related Social Needs Health related social needs: inadequate housing (Z59.1), transportation insecurity (Z59.82), material hardship(utilities) (Z59.12), problems related to housing/economic circumstances (Z59.89) and feeling lonely/isolated (Z60.8) Health related social needs details: homeless and needs resources
== END 2025-04-23 15:43 | disposition swing bed (61) | DRG 871 ==
LOC: ER 16:54 → MS 17:35
PROVIDERS: Family Medicine; Nurse Practitioner Acute Care; Admitting Provider Hospitalist; Emergency Provider Emergency Medicine; PCP Family Medicine; Responsible Provider Nurse Practitioner Family; Visit Provider Hospitalist
DX: A41.02 Sepsis due to Methicillin resistant Staphylococcus aureus (principal); I26.90 Septic pulmonary embolism without acute cor pulmonale; L03.811 Cellulitis of head [any part, except face]; I47.20 Ventricular tachycardia, unspecified; L03.115 Cellulitis of right lower limb; I38 Endocarditis, valve unspecified; F11.20 Opioid dependence, uncomplicated; Z59.811 Housing instability, housed, with risk of homelessness; Z59.12 Inadequate housing utilities; I76 Septic arterial embolism; J94.8 Other specified pleural conditions; B95.62 Methicillin resistant Staphylococcus aureus infection as the cause of diseases classified elsewhere; J98.4 Other disorders of lung; S82.831D Other fracture of upper and lower end of right fibula, subsequent encounter for closed fracture with routine healing; R74.01 Elevation of levels of liver transaminase levels; M25.571 Pain in right ankle and joints of right foot; G43.009 Migraine without aura, not intractable, without status migrainosus; F41.9 Anxiety disorder, unspecified; G47.00 Insomnia, unspecified; I10 Essential (primary) hypertension; Z59.82 Transportation insecurity; Z56.9 Unspecified problems related to employment; Z73.9 Problem related to life management difficulty, unspecified; Z60.8 Other problems related to social environment; F17.290 Nicotine dependence, other tobacco product, uncomplicated; B18.2 Chronic viral hepatitis C
CPT/HCPCS: 36569; 00123; 36415; 71045; 71250; 80048; 80053; 80307; 80354; 80375; 86704; 86709; 86803; 87040; 87077; 87340; 87389; 87522; 96361; 96365; 96366; 96367; 96372; 96375; 96376; 97116; 97140; 97161; 97530; 99285; J1650; 70130; 70460; 70470; 70481; 73610; 80202; 80329; 83605; 83735; 84484; 85025; 86140; 86480; 87070; 87186; 87205; 93005; 93010; 93306; 99222; 99223; 99232; 99233; 99238; 99239; G0378; J0131; J0696; J1885; J3373; J3475; J3490

== ENCOUNTER 2025-04-23 15:21 | Inpatient (IN) | payer MEDICAID, SELFPAY ==
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
[2025-04-23] MEDS: VANCOMYCIN/WATER (PEG) 1.5 GM/300 ML BAG IVPB (18:08)
[2025-04-23] MEDS: Normal Saline Flush 10 ML SYR IVP (18:10)
[2025-04-23 19:12] VITALS: BP 115/81; PULSE 106; RESP 16; TEMP 36.9; O2SAT 99
[2025-04-23] MEDS: hydrOXYzine HCL 50 MG TAB PO (21:38)
[2025-04-23] MEDS: Melatonin 3 MG TAB 9 MG PO (21:38)
[2025-04-23] MEDS: Celecoxib 200 MG CAP PO (21:38)
[2025-04-23] MEDS: cloNIDine 0.1 MG TAB PO (21:39)
[2025-04-23] MEDS: Mupirocin 2% Oint. 22 GM TUBE TP (21:47)
[2025-04-24] MEDS: VANCOMYCIN/WATER (PEG) 1.5 GM/300 ML BAG IVPB ×2 (06:07→17:32)
[2025-04-24] MEDS: Pantoprazole 40 MG TABCR PO (06:46)
[2025-04-24 07:37] VITALS: BP 82/64; PULSE 81; RESP 15; TEMP 36.1; O2SAT 92
[2025-04-24 09:16] VITALS: BP 104/63
[2025-04-24] MEDS: Mupirocin 2% Oint. 22 GM TUBE TP ×3 (09:16→21:20)
[2025-04-24] MEDS: Enoxaparin 40 MG/0.4 ML SYR SC (09:16)
[2025-04-24] MEDS: Celecoxib 200 MG CAP PO ×2 (09:17→21:16)
[2025-04-24] MEDS: cloNIDine 0.1 MG TAB PO ×3 (09:17→21:17)
[2025-04-24] MEDS: Nicotine 21 MG/24 HR PATCH TD (13:45)
[2025-04-24 14:02] VITALS: BP 136/97; PULSE 111
--- NOTE | 2025-04-24 17:03 | PHA.REVIEW2 ---
Pharmacy Admission Review Admission Clinical Review Admission Pharmacy Review: Cellulitis of right lower extremity (Acute) Endocarditis (Acute) Cavitary lesion of lung (Acute) MRSA bacteremia (Acute) Opioid use disorder (Acute) Pain (Acute) No Known Allergies Allergy (Unverified 04/13/25 14:31) Resuscitation Status Full Code Height 5 ft 10 in Weight 63.049 kg Pharmacy Admission Review Renal Dosing Medications needing adjustments: Reviewed (CrCl 116.03 mL/min) List of meds needing interventions: Current medications are okay Anticoagulation DVT Prophylaxis: Reviewed Medications: Enoxaparin (40mg daily) Relevant Labs Electrolytes, C-Reactive P, ESR: Reviewed (No new labs for today) Cardiac Review BP, HR, EF%: Reviewed (BP 136/97, HR 111) QTc Review QTc: Reviewed (461 from 04/19/25) IV to PO Switch IV Medications: Reviewed (vancomycin) Home Meds Home Med List reviewed: Reviewed Relevent Home Meds Not ordered & why?: No known home meds Current Meds Current Medication Order Review: Reviewed Pharmacy Antibiotic Review Pharmacy Antibiotic Activity: Reviewed, no change Comments: Patient is on vancomycin, day 11, for MRSA bacteremia/endocarditis. Will require 6 weeks of therapy starting from 04/15/25 per H+P. Current dose is 1500mg q12h with predicted AUC of 524. Last level was drawn 04/19 and dose was changed due to that level. Repeat level on Thursday 04/26?
[2025-04-24 18:19] LABS: Vancomycin, Random 24.8 ug/mL
[2025-04-24 19:42] VITALS: BP 100/64; PULSE 100; RESP 18; TEMP 38.4; O2SAT 96
[2025-04-24] MEDS: hydrOXYzine HCL 50 MG TAB PO (21:15)
[2025-04-24] MEDS: Acetaminophen 325 MG TAB 650 MG PO (21:16)
[2025-04-24] MEDS: Melatonin 3 MG TAB 9 MG PO (21:17)
[2025-04-24] MEDS: Normal Saline Flush 10 ML SYR IVP (21:17)
[2025-04-24 22:16] VITALS: TEMP 36
[2025-04-25] MEDS: Normal Saline Flush 10 ML SYR IVP ×4 (05:37→21:45)
[2025-04-25] MEDS: VANCOMYCIN/WATER (PEG) 1.5 GM/300 ML BAG IVPB ×2 (05:37→18:12)
[2025-04-25 07:17] VITALS: BP 94/70; PULSE 74; RESP 20; TEMP 36.2; O2SAT 97
[2025-04-25] MEDS: Pantoprazole 40 MG TABCR PO (07:32)
[2025-04-25] MEDS: Celecoxib 200 MG CAP PO ×2 (07:32→21:44)
[2025-04-25] MEDS: Enoxaparin 40 MG/0.4 ML SYR SC (07:32)
[2025-04-25] MEDS: Mupirocin 2% Oint. 22 GM TUBE TP ×3 (07:32→22:00)
[2025-04-25] MEDS: cloNIDine 0.1 MG TAB PO ×3 (07:32→21:44)
--- NOTE | 2025-04-25 10:44 | NUR.NOTE ---
Pt signed approved temporary release form. States he will be gone from [id number]. IV wrapped and tapped and marked. Nursing Note:
--- NOTE | 2025-04-25 11:45 | CHAPLAIN ---
Johnathon in here on swing bed, receiving infusions, and he said he'll be here for a month. I've met him before and just checked in with him today. His mom, Leesa Giles, works at [employer] in billing and has been visiting Johnathon.
[2025-04-25] MEDS: Nicotine 21 MG/24 HR PATCH TD (13:06)
[2025-04-25 20:12] VITALS: BP 125/74; PULSE 150; RESP 20; TEMP 36.6; O2SAT 98
[2025-04-25] MEDS: Melatonin 3 MG TAB 9 MG PO (21:44)
[2025-04-25] MEDS: hydrOXYzine HCL 50 MG TAB PO (21:44)
[2025-04-26] MEDS: VANCOMYCIN/WATER (PEG) 1.5 GM/300 ML BAG IVPB (06:13)
[2025-04-26] MEDS: Normal Saline Flush 10 ML SYR IVP ×2 (06:13→08:57)
[2025-04-26 08:14] VITALS: BP 102/63; PULSE 74; RESP 18; TEMP 36.6; O2SAT 99
[2025-04-26] MEDS: Enoxaparin 40 MG/0.4 ML SYR SC (08:56)
[2025-04-26] MEDS: cloNIDine 0.1 MG TAB PO ×4 (08:56→20:41)
[2025-04-26] MEDS: Celecoxib 200 MG CAP PO ×2 (08:56→20:41)
[2025-04-26] MEDS: Pantoprazole 40 MG TABCR PO (08:56)
[2025-04-26] MEDS: Mupirocin 2% Oint. 22 GM TUBE TP ×3 (08:57→20:47)
[2025-04-26 09:22] LABS: Estimated GFR 119.10 (mL/min/1.73m2)
[2025-04-26 09:28] LABS: Vancomycin, Random 44.0 ug/mL
[2025-04-26] MEDS: Nicotine 21 MG/24 HR PATCH TD (13:13)
[2025-04-26 20:37] VITALS: BP 114/73; PULSE 62; RESP 16; TEMP 36.4; O2SAT 97
[2025-04-26] MEDS: Melatonin 3 MG TAB 9 MG PO (20:41)
[2025-04-26] MEDS: hydrOXYzine HCL 50 MG TAB PO (20:41)
[2025-04-27] MEDS: VANCOMYCIN/WATER (PEG) 1 GM/200 ML BAG IVPB ×3 (00:10→23:55)
[2025-04-27 07:45] VITALS: BP 103/71; PULSE 86; RESP 16; TEMP 37.2; O2SAT 96
[2025-04-27] MEDS: Celecoxib 200 MG CAP PO ×2 (07:49→19:58)
[2025-04-27] MEDS: Pantoprazole 40 MG TABCR PO (07:49)
[2025-04-27] MEDS: Mupirocin 2% Oint. 22 GM TUBE TP ×3 (07:49→19:57)
[2025-04-27] MEDS: cloNIDine 0.1 MG TAB PO ×3 (07:49→19:58)
[2025-04-27] MEDS: Normal Saline Flush 10 ML SYR IVP ×2 (07:50→11:39)
[2025-04-27] MEDS: Enoxaparin 40 MG/0.4 ML SYR SC (07:50)
[2025-04-27] MEDS: Nicotine 21 MG/24 HR PATCH TD (11:39)
[2025-04-27 19:23] VITALS: BP 97/71; PULSE 100; RESP 14; TEMP 36.6; O2SAT 98
[2025-04-27] MEDS: Melatonin 3 MG TAB 9 MG PO (19:57)
[2025-04-27] MEDS: hydrOXYzine HCL 50 MG TAB PO (19:58)
[2025-04-28 07:11] VITALS: BP 82/49; PULSE 75; RESP 16; TEMP 36.8; O2SAT 98
[2025-04-28 08:03] VITALS: BP 108/76
[2025-04-28] MEDS: Pantoprazole 40 MG TABCR PO (08:05)
[2025-04-28] MEDS: Enoxaparin 40 MG/0.4 ML SYR SC (08:05)
[2025-04-28] MEDS: Celecoxib 200 MG CAP PO ×2 (08:05→20:16)
[2025-04-28] MEDS: Normal Saline Flush 10 ML SYR IVP ×3 (08:05→14:42)
[2025-04-28] MEDS: cloNIDine 0.1 MG TAB PO ×3 (08:06→20:16)
[2025-04-28] MEDS: Mupirocin 2% Oint. 22 GM TUBE TP ×3 (08:06→20:18)
[2025-04-28 10:25] LABS: Vancomycin, Trough 6.8 ug/mL (10.0-20.0)
[2025-04-28] MEDS: Nicotine 21 MG/24 HR PATCH TD (12:19)
[2025-04-28] MEDS: VANCOMYCIN/WATER (PEG) 1.5 GM/300 ML BAG IVPB (13:06)
[2025-04-28 20:02] VITALS: BP 126/91; PULSE 96; RESP 20; TEMP 37.7; O2SAT 98
[2025-04-28] MEDS: Melatonin 3 MG TAB 9 MG PO (20:16)
[2025-04-28] MEDS: hydrOXYzine HCL 50 MG TAB PO (20:17)
[2025-04-29] MEDS: VANCOMYCIN/WATER (PEG) 1.5 GM/300 ML BAG IVPB ×3 (01:08→23:59)
[2025-04-29 07:39] VITALS: BP 95/59; PULSE 87; RESP 16; TEMP 36.5; O2SAT 97
[2025-04-29 08:12] LABS: Abs Immature Grans 0.05 10^3/uL (0.0-0.06); HCT 37.6 % (40.0-50.0); HGB 12.3 g/dL (13.5-17.5); Immature Grans % 0.6 %; MCH 29.1 pg (27.0-33.0); MCHC 32.7 % (32.0-36.0); MCV 89 fL (80-95); MPV 10.4 fL (8.0-11.0); Platelet Count 307 10^3/uL (130-400); RBC 4.22 10^6/uL (4.36-5.78); RDW 15.2 % (11.8-14.1); RDW-SD 50.2 fL; WBC 7.82 10^3/uL (4.4-10.8)
[2025-04-29 08:35] LABS: ALT 470 U/L (16-63); AST 203 U/L (15-37); Albumin 2.9 g/dL (3.4-5.0); Alkaline Phosphatase 356 U/L (46-116); Anion Gap 5.6 mmol/L (3-11); BUN 12 mg/dL (7-18); Bilirubin, Total 0.5 mg/dL (0.2-1.0); CO2 32.4 mmol/L (21.0-32.0); Calcium 9.0 mg/dL (8.5-10.1); Chloride 99 mmol/L (98-107); Estimated GFR 119.10 (mL/min/1.73m2); Glucose 88 mg/dL (74-106); Potassium 4.5 mmol/L (3.5-5.1); Sodium 137 mmol/L (136-145); Total Protein 7.3 g/dL (6.4-8.2)
[2025-04-29] MEDS: Pantoprazole 40 MG TABCR PO (08:52)
[2025-04-29] MEDS: cloNIDine 0.1 MG TAB PO ×3 (08:52→20:22)
[2025-04-29] MEDS: Normal Saline Flush 10 ML SYR IVP ×2 (08:52→10:06)
[2025-04-29] MEDS: Enoxaparin 40 MG/0.4 ML SYR SC (08:52)
[2025-04-29] MEDS: Celecoxib 200 MG CAP PO ×2 (08:52→20:22)
[2025-04-29] MEDS: Mupirocin 2% Oint. 22 GM TUBE TP ×3 (09:05→20:29)
[2025-04-29 10:49] LABS: Vancomycin, Random 13.2 ug/mL
[2025-04-29] MEDS: Nicotine 21 MG/24 HR PATCH TD (12:13)
[2025-04-29 20:07] VITALS: BP 98/65; PULSE 97; RESP 22; TEMP 37.2; O2SAT 98
[2025-04-29] MEDS: Melatonin 3 MG TAB 9 MG PO (20:22)
[2025-04-29] MEDS: hydrOXYzine HCL 50 MG TAB PO (20:23)
[2025-04-30] MEDS: Pantoprazole 40 MG TABCR PO (06:18)
[2025-04-30 07:08] VITALS: BP 98/70; PULSE 85; RESP 16; TEMP 36.8
--- NOTE | 2025-04-30 09:09 | PDOC.CMPRO ---
Date of service: 04/30/25 Time of Service: 09:09
--- NOTE | 2025-04-30 09:16 | W.PM.PROGNOT ---
Date of Service Date of service: 04/30/25 Time of Service: 09:16 Assessment and Plan Assessment and plan (1) MRSA bacteremia: Status: Acute Assessment and plan: Blood Cx from 04/15- negative to date- Antibiotics end date: 05/27/25 last dose PICC placement on 04/18 [facility] SANDRA was negative for vegetations On vancomycin - dosing as per pharmacy (2) Endocarditis: Status: Acute Assessment and plan: Corona criteria met for endocarditis as per discussion with [facility] IR Plan for at least 6 weeks antibiotics from 04/15/25 -last dose on 05/27/2025 On vancomycin - dosing as per pharmacy Consider ID consult if markers not trending down - at the time will consult for Hep C aggressive treatment VS conventional recommendation (3) Cavitary lesion of lung: Status: Acute Assessment and plan: As seen on 04/[address]: Lesions been from hematogenous origin (with MRSA bacteremia) as per discussion with radiologist Dr. Garcia IMPRESSION: 1. There are multiple similar appearing partially cavitated nodular infiltrates throughout both lungs, the left lower lobe pleural based lesion , measuring 33 x 28 x 28 mm. Etiology of these multiple bilateral nodular infiltrates, given their appearance and patient's age the etiology is most likely infectious VS neoplastic. IR at [facility] consultation with Dr. Do: Declined for intervention at the time - and recommendation for ongoing Tx with antibiotics -Positive identification of lesions corresponding to septic emboli and recommendation for ongoing treatment as infectious - imrpoving and no consideration for repeating consult at this time ID [facility] consulted on 04/12 :As per Corona's criteria: Endocardititis criteria met and the patient should be treated for 6 weeks at least- pending SANDRA results -SANDRA - negative for vegetations / TTE failed to rule in vegetations -LVEF 55-60% -On vancomycin - dosing as per pharmacy - BOBBY at 0.5- - TB negative and HIV negative Consider repeating CT imaging a week prior the completion of antibiotics: 05/20/25 (4) Pain: Status: Acute Assessment and plan: Right ankle pain controlled with current pain management medicines Continue pain management regimen with PRN acetaminophen and BID celebrex changed to scheduled d/t increased pain in the setting of opioid craving and increased anxiety Patient reminded to keep boot when ambulating again today as recommended by ortho (5) Opioid use disorder: Status: Acute Assessment and plan: BAART- outpatient ongoing with mother to administer outpatient suboxone dosing on Sundays Continue to offer previous PRN meds when due Will order a UDS d/t positive findings last week: at the time the patient was counselled on the importance of abstaining from cocaine use Ongoing scheduled and PRN clonidine;HS and scheduled Atarax (6) Hepatitis C infection: Status: Chronic Assessment and plan: new diagnosis? Considering repeat labs for hep C in 12 weeks ( on July 07 2025)v [facility] hepathology/ GI consult Trend CMP Liver fxn increased will continue to trend - still has mild transaminitis (7) Cellulitis of right lower extremity: Status: Acute Assessment and plan: Resolved (8) Closed fracture of distal end of right fibula: Status: Resolved Assessment and plan: repeated Ankle x-ray on 04/15 showed stable fracture no re-injury Seen by PT (9) Cellulitis of scalp: Status: Chronic Assessment and plan: Resolved Surgical consult completed - no intervention recommended at the time (10) V-tach: Status: Resolved Assessment and plan: No recurrence after the first asymptomatic episode Tele was discontinued Consider beta-rachel for repeat episode Discussed with Dr Etienne. Subjective Subjective Patient reports: no new complaints, tolerating liquids well, tolerating a regular diet, voiding w/o difficulty, flatus and bowel movement; denies diarrhea, blood in stool, vomiting, shortness of breath or fever Exam Narrative Exam Narrative: Right ear erythema and swelling resolved. alert and oriented X 4 neurologically intact, clear lungs ,S1 S2 regular, no cardiac murmur, abdomen non-distended, soft , non-tender, moves all 4 est, no CVA tenderness, no rash or skin lesion to exposed skin Objective Last Vital Signs Temp 36.8 C 04/30/25 07:08 Pulse 85 04/30/25 07:08 Resp 16 04/30/25 07:08 BP 98/70 L 04/30/25 07:08 Pulse Ox 98 04/29/25 20:07 Laboratory Results - last 24 hr 04/29/25 10:05 Random Vancomycin 13.2 Time Spent with Patient Time Spent with Patient: >50 minutes Time was spent: preparing to see the patient(eg.review tests), obtaining and/or reviewing separately otained hiistory, ordering medications,tests, procedures, referring, communicating with other health career development coordinator/teacher, indepentently interpreting results, counseling the patient and care coordination
--- NOTE | 2025-04-30 09:18 | PDOC.CMACT ---
Date of service: 04/30/25 Time of Service: 09:18
[2025-04-30] MEDS: Celecoxib 200 MG CAP PO ×2 (10:14→21:39)
[2025-04-30] MEDS: Enoxaparin 40 MG/0.4 ML SYR SC (10:14)
[2025-04-30] MEDS: cloNIDine 0.1 MG TAB PO ×2 (10:14→21:36)
[2025-04-30] MEDS: Mupirocin 2% Oint. 22 GM TUBE TP ×2 (10:16→21:41)
[2025-04-30] MEDS: VANCOMYCIN/WATER (PEG) 1.5 GM/300 ML BAG IVPB (12:16)
[2025-04-30] MEDS: Nicotine 21 MG/24 HR PATCH TD (12:16)
[2025-04-30] MEDS: Normal Saline Flush 10 ML SYR IVP ×2 (12:16→21:39)
[2025-04-30 18:03] VITALS: BP 110/74; PULSE 112; RESP 17; TEMP 39.5; O2SAT 97
[2025-04-30] MEDS: diphenhydrAMINE 25 MG CAP PO (18:09)
[2025-04-30 18:10] VITALS: TEMP 39.5
[2025-04-30] MEDS: Acetaminophen 325 MG TAB 650 MG PO (18:10)
[2025-04-30 19:06] VITALS: BP 106/61; PULSE 112; RESP 16; TEMP 39.1; O2SAT 98
[2025-04-30] MEDS: Melatonin 3 MG TAB 9 MG PO (21:36)
[2025-04-30 21:37] VITALS: TEMP 37.7
[2025-04-30] MEDS: Ibuprofen 600 MG TAB PO (21:37)
[2025-04-30] MEDS: hydrOXYzine HCL 50 MG TAB PO (21:39)
[2025-04-30 22:05] LABS: HCT 35.1 % (40.0-50.0); HGB 11.7 g/dL (13.5-17.5); MCH 29.5 pg (27.0-33.0); MCHC 33.3 % (32.0-36.0); MCV 89 fL (80-95); MPV 9.8 fL (8.0-11.0); Platelet Count 288 10^3/uL (130-400); RBC 3.96 10^6/uL (4.36-5.78); RDW 14.8 % (11.8-14.1); RDW-SD 48.2 fL; WBC 5.58 10^3/uL (4.4-10.8)
[2025-04-30 22:27] LABS: ALT 370 U/L (16-63); AST 154 U/L (15-37); Albumin 2.9 g/dL (3.4-5.0); Alkaline Phosphatase 347 U/L (46-116); Anion Gap 2.0 mmol/L (3-11); BUN 16 mg/dL (7-18); Bilirubin, Total 0.4 mg/dL (0.2-1.0); C-Reactive Protein 2.21 mg/dL (<or=0.5); CO2 32.0 mmol/L (21.0-32.0); Calcium 8.8 mg/dL (8.5-10.1); Chloride 100 mmol/L (98-107); Estimated GFR 114.93 (mL/min/1.73m2); Glucose 110 mg/dL (74-106); Potassium 4.1 mmol/L (3.5-5.1); Sodium 134 mmol/L (136-145); Total Protein 7.2 g/dL (6.4-8.2)
[2025-04-30 22:54] VITALS: TEMP 37.2
[2025-04-30 23:13] LABS: Cannabinoids THC Positive (Negative); METHADONE URINE SCREEN Negative (Negative)
[2025-05-01] MEDS: VANCOMYCIN/WATER (PEG) 1.5 GM/300 ML BAG IVPB (01:24)
[2025-05-01 01:26] VITALS: BP 96/68; PULSE 75; RESP 18; TEMP 36; O2SAT 100
[2025-05-01 07:49] VITALS: BP 109/73; PULSE 103; RESP 16; TEMP 37; O2SAT 99
[2025-05-01] MEDS: Celecoxib 200 MG CAP PO ×2 (08:00→20:04)
[2025-05-01] MEDS: Pantoprazole 40 MG TABCR PO (08:01)
[2025-05-01] MEDS: cloNIDine 0.1 MG TAB PO ×3 (08:01→20:04)
[2025-05-01] MEDS: Acetaminophen 325 MG TAB 650 MG PO (08:17)
--- NOTE | 2025-05-01 11:13 | PGE_ITS ---
Date of Service Date of service: 05/01/25 Time of Service: 11:13 Assessment and Plan Assessment and plan (1) Morbilliform rash: Status: Acute Assessment and plan: Developing to hands initially now wide-spread- febrile last night - not persistent Will d/c Vancomycin -Start Linezolid Loratidine, famotidine, prednisone X 4 days Patient reports not taking other drugs during outing except cocaine and THC- will limit outings to BAART with mother only at this time (2) MRSA bacteremia: Status: Acute Assessment and plan: Blood Cx from 04/15- negative to date- Antibiotics end date: 05/27/25 last dose PICC placement on 04/18 [facility] [place] SANDRA was negative for vegetations Was on vancomycin - now on Linezolid as per point 1 ID consult completed with Dr Grupo Falcon from [facility] [place] -Recommendation: Linezolid 600mg IV Q 12H VS ceftaroline 600 mg IV Q 12 H both reasonable to complete treatment until 05/27/25 -Platelet trend with Linezolid (3) Endocarditis: Status: Acute Assessment and plan: Corona criteria met for endocarditis as per discussion with [facility] [place] Plan for at least 6 weeks antibiotics from 04/15/25 -last dose on 05/27/2025 Was on vancomycin - now on Linezolid as per point 1 At the time will consult for Hep C aggressive treatment VS conventional recommendation (4) Cavitary lesion of lung: Status: Acute Assessment and plan: As seen on 04/[address]: Lesions been from hematogenous origin (with MRSA bacteremia) as per discussion with radiologist Dr. Garcia IMPRESSION: 1. There are multiple similar appearing partially cavitated nodular infiltrates throughout both lungs, the left lower lobe pleural based lesion , measuring 33 x 28 x 28 mm. Etiology of these multiple bilateral nodular infiltrates, given their appearance and patient's age the etiology is most likely infectious VS neoplastic. IR at [facility] [place] consultation with Dr. Do: Declined for intervention at the time - and recommendation for ongoing Tx with antibiotics as per point 2 -Positive identification of lesions corresponding to septic emboli and recommendation for ongoing treatment as infectious - imrpoving and no consideration for repeating consult at this time ID [facility] [place] consulted on 04/12 :As per Corona's criteria: Endocardititis criteria met and the patient should be treated for 6 weeks at least- pending SANDRA results -SANDRA - negative for vegetations / TTE failed to rule in vegetations -LVEF 55- 60% Vancomycin discontinue and on linezolid as per point 2 - TB negative and HIV negative Consider repeating CT imaging a week prior the completion of antibiotics: 05/20/25 (5) Pain: Status: Acute Assessment and plan: Right ankle pain controlled with current pain management medicines Continue pain management regimen with PRN acetaminophen and BID celebrex changed to scheduled d/t increased pain in the setting of opioid craving and increased anxiety Patient reminded to keep boot when ambulating again today as recommended by srinivas wade (6) Opioid use disorder: Status: Acute Assessment and plan: BAART- outpatient ongoing with mother to administer outpatient suboxone dosing on Sundays Continue to offer previous PRN meds when due Will order a UDS d/t positive findings last week: at// the time the patient was counselled on the importance of abstaining from cocaine use -Positive UDS for coaaine and THC again on 04/30/25 - Discussed limiting outings to BAART with mother as patient expressed difficulty resisting taking the drugs outside stating It's hard drugs provided by a friend in the community Ongoing scheduled and PRN clonidine;HS and scheduled Atarax (7) Hepatitis C infection: Status: Chronic Assessment and plan: new diagnosis? Considering repeat labs for hep C in 12 weeks VS hepathology/ GI consult ID consult: recommending treating as an outpatient w/o retesting Trend CMP Liver fxn increased will continue to trend - still has mild transaminitis (8) Cellulitis of right lower extremity: Status: Acute Assessment and plan: Resolved (9) Closed fracture of distal end of right fibula: Status: Resolved Assessment and plan: repeated Ankle x-ray on 04/15 showed stable fracture no re-injury Seen by PT (10) Cellulitis of scalp: Status: Chronic Assessment and plan: Resolved Surgical consult completed - no intervention recommended at the time (11) V-tach: Status: Resolved Assessment and plan: No recurrence after the first asymptomatic episode Tele was discontinued Consider beta-rachel for repeat episode Discussed with Dr Etienne. Subjective Subjective Patient reports: tolerating liquids well, tolerating a regular diet, voiding w/o difficulty, afebrile (febrile overnight ) and other (pruritus with raised ); denies diarrhea, nausea, vomiting or shortness of breath Exam Narrative Exam Narrative: Appears tired raised morbilliform generalized rash, alert and oriented X 4 neurologically intact, clear lungs ,S1 S2 regular, no cardiac murmur, abdomen is non-acute, No CVA tenderness - no reported joint/ articulation pain Objective Last Vital Signs Temp 37.0 C 05/01/25 07:49 Pulse 103 H 05/01/25 07:49 Resp 16 05/01/25 07:49 BP 109/73 05/01/25 07:49 Pulse Ox 99 05/01/25 07:49 Laboratory Results - last 24 hr 04/30/25 04/30/25 21:04 21:45 WBC 5.58 RBC 3.96 L Hgb 11.7 L Hct 35.1 L MCV 89 MCH 29.5 MCHC 33.3 RDW 14.8 H Plt Count 288 MPV 9.8 VBG Lactate 0.9 Sodium 134 L Potassium 4.1 Chloride 100 Carbon Dioxide 32.0 Anion Gap 2.0 L BUN 16 Creatinine 0.9 Est GFR (CKD-EPI 2020) 114.93 Glucose 110 H Calcium 8.8 Total Bilirubin 0.4 AST 154 H ALT 370 H Alkaline Phosphatase 347 H C-Reactive Protein 2.21 H Total Protein 7.2 Albumin 2.9 L Urine Opiates Screen Negative Urine Methadone Screen Negative Ur Barbiturates Screen Negative Ur Tricyclics Screen Negative Ur Amphetamines Screen Negative U Benzodiazepines Scrn Negative Urine Cocaine Screen Positive A Ur THC Screen Positive A Time Spent with Patient Time Spent with Patient: >50 minutes Time was spent: preparing to see the patient(eg.review tests), obtaining and/or reviewing separately otained hiistory, ordering medications,tests, procedures, referring, communicating with other health ostomy care nurse, indepentently interpreting results, counseling the patient and care coordination
[2025-05-01] MEDS: Nicotine 21 MG/24 HR PATCH TD (13:18)
[2025-05-01] MEDS: predniSONE 20 MG TAB 40 MG PO (13:18)
[2025-05-01] MEDS: Normal Saline Flush 10 ML SYR IVP ×3 (13:18→23:44)
[2025-05-01] MEDS: LINEZOLID 600 MG/300 ML BAG 300 MG IVPB ×2 (13:18→23:44)
[2025-05-01] MEDS: Famotidine 20 MG TAB PO ×2 (13:19→20:04)
[2025-05-01] MEDS: Mupirocin 2% Oint. 22 GM TUBE TP ×2 (14:33→20:05)
[2025-05-01 19:49] VITALS: BP 113/73; PULSE 93; RESP 18; TEMP 36; O2SAT 95
[2025-05-01] MEDS: Melatonin 3 MG TAB 9 MG PO (20:04)
[2025-05-01] MEDS: hydrOXYzine HCL 50 MG TAB PO (20:04)
[2025-05-02 07:09] VITALS: BP 102/72; PULSE 67; RESP 14; TEMP 36.8; O2SAT 98
[2025-05-02] MEDS: Celecoxib 200 MG CAP PO (08:10)
[2025-05-02] MEDS: predniSONE 20 MG TAB PO (08:10)
[2025-05-02] MEDS: Loratidine 10 MG TAB 20 MG PO (08:10)
[2025-05-02] MEDS: Acetaminophen 325 MG TAB 650 MG PO (08:10)
[2025-05-02] MEDS: Mupirocin 2% Oint. 22 GM TUBE TP (08:11)
[2025-05-02] MEDS: cloNIDine 0.1 MG TAB PO (08:11)
[2025-05-02] MEDS: Famotidine 20 MG TAB PO (08:11)
[2025-05-02] MEDS: Normal Saline Flush 10 ML SYR IVP ×2 (08:11→12:23)
[2025-05-02] MEDS: LINEZOLID 600 MG/300 ML BAG 300 MG IVPB (12:22)
[2025-05-02] MEDS: Nicotine 21 MG/24 HR PATCH TD (12:22)
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
--- NOTE | 2025-05-02 13:48 | NUR.NOTE ---
Pt is being discharged from [facility] to acute. Nursing Note:
[2025-05-02] MEDS: Bacitracin 1 PACKET (14:26)
== END 2025-05-02 15:18 | disposition short-term general hospital (02) | DRG 871 ==
PROVIDERS: Family Medicine; Nurse Practitioner Acute Care; Admitting Provider Family Medicine; PCP Family Medicine; Responsible Provider Nurse Practitioner Acute Care; Visit Provider Family Medicine
DX: A41.02 Sepsis due to Methicillin resistant Staphylococcus aureus (principal); I26.90 Septic pulmonary embolism without acute cor pulmonale; I38 Endocarditis, valve unspecified; L03.115 Cellulitis of right lower limb; L03.811 Cellulitis of head [any part, except face]; I47.20 Ventricular tachycardia, unspecified; Z59.00 Homelessness unspecified; B95.62 Methicillin resistant Staphylococcus aureus infection as the cause of diseases classified elsewhere; J98.4 Other disorders of lung; B19.20 Unspecified viral hepatitis C without hepatic coma; M25.571 Pain in right ankle and joints of right foot; B18.2 Chronic viral hepatitis C; S82.831D Other fracture of upper and lower end of right fibula, subsequent encounter for closed fracture with routine healing; X58.XXXD Exposure to other specified factors, subsequent encounter; F14.90 Cocaine use, unspecified, uncomplicated; F12.90 Cannabis use, unspecified, uncomplicated; Z59.82 Transportation insecurity; R74.01 Elevation of levels of liver transaminase levels; G43.709 Chronic migraine without aura, not intractable, without status migrainosus; F17.290 Nicotine dependence, other tobacco product, uncomplicated; Z79.2 Long term (current) use of antibiotics; F11.90 Opioid use, unspecified, uncomplicated; B05.9 Measles without complication; R45.89 Other symptoms and signs involving emotional state; Z59.89 Other problems related to housing and economic circumstances
CPT/HCPCS: 00123; 36415; 80053; 80307; 85027; 87040; 87077; 87186; 99305; 99316; J1650; 80202; 82565; 83605; 85025; 86140; 99310; J2020; J3373; J3490; J7512

== ENCOUNTER 2025-05-02 13:53 | Inpatient (IN) | payer MEDICAID, SELFPAY ==
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
--- NOTE | 2025-05-02 14:07 | NUR.NOTE ---
Pt admitted from swing to acute care. Nursing Note:
[2025-05-02 14:54] VITALS: BP 105/71; PULSE 80; RESP 18; TEMP 36.6; O2SAT 98
[2025-05-02] MEDS: cloNIDine 0.1 MG TAB PO ×2 (15:30→20:09)
[2025-05-02] MEDS: levoFLOXacin 750 MG/150 ML BAG 100 MG IVPB (15:42)
--- NOTE | 2025-05-02 16:02 | W.PC.ACHO ---
Registration Status: ADM IN Primary Language: Preferred Language: Vietnamese Medical / Surgical History (Last Reviewed 04/10/25 @ 14:29 by Baljinder Monson MD) Frequent headaches Tobacco use Anxiety Hypertension Insomnia Most Recent Vital Signs Temperature 36.6 C 05/02/25 14:54 Temperature Source Temporal Artery Scan 05/02/25 14:54 Pulse 80 05/02/25 14:54 Respiratory Rate 18 05/02/25 14:54 Blood Pressure 105/71 05/02/25 14:54 Blood Pressure Mean 82 05/02/25 14:54 Pulse Oximetry 98 05/02/25 14:54 Oxygen Delivery Method Room Air 05/02/25 14:54 Oxygen Flow Rate 0 05/02/25 14:54 Pain Level 1 05/02/25 14:54 Allergies No Known Allergies Allergy (Unverified 04/13/25 14:31) Active Medications Generic Name Dose Route Start Last Admin Trade Name Freq PRN Reason Stop Dose Admin Clonidine 0.1 mg 05/02/25 14:00 05/02/25 15:30 Clonidine 0.1 Mg Tab PO 0.1 mg TID DEVANG Administration Levofloxacin 750 mg in 150 mls @ 100 mls/hr 05/02/25 14:00 05/02/25 15:42 Levaquin Premixed Bag IVPB 100 mls/hr Q24H DEVANG Administration IV IV Catheter Type [Left Saline Lock Antecubital] IV Catheter Gauge [Left 20 Antecubital] Diet Orders Category Date Time Status Regular/Normal [DIET] Nutrition 05/02/25 Dinner Active Diagnostics 05/02/25 05/02/25 Range/Units 14:32 13:56 WBC Pending RBC Pending Hgb Pending Hct Pending MCV Pending MCH Pending MCHC Pending RDW Pending Plt Count Pending MPV Pending Immature Gran % Pending Neutrophils % Pending Lymphocytes % Pending Monocytes % Pending Eosinophils % Pending Basophils % Pending Absolute Neutrophils Pending Absolute Lymphocytes Pending Absolute Monocytes Pending Absolute Eosinophils Pending Absolute Basophils Pending Sodium Pending Potassium Pending Chloride Pending Carbon Dioxide Pending Anion Gap Pending BUN Pending Creatinine Pending Est GFR (CKD-EPI 2020) Pending Glucose Pending Calcium Pending Magnesium Pending Total Bilirubin Pending AST Pending ALT Pending Alkaline Phosphatase Pending Total Protein Pending Albumin Pending 05/02/25 13:56 Blood Culture - Pending Blood 05/02/25 13:56 Blood Culture - Pending Blood 05/02/25 14:23 Catheter Tip Culture - Pending Tip/Tube Intake and Output - 24 Hour Total 05/02/25 12:17 thru 05/02/25 15:08 Intake Total 250 Balance 250 Weight 65.8 kg Intake: Oral 250 Other: Comment independent Problems (Last Reviewed 04/10/25 @ 14:29 by Baljinder Monson MD) On deep vein thrombosis (DVT) prophylaxis (Acute) Bacteremia due to Gram-negative bacteria (Acute) Morbilliform rash (Acute) Hepatitis C infection (Chronic) Endocarditis (Acute) Cavitary lesion of lung (Acute) MRSA bacteremia (Acute) Opioid use disorder (Acute) Pain (Acute) Fracture of distal end of right fibula (Acute ~02/19/25) Notes 05/02/25 14:07 Nursing Notes by Wolf Frausto Pt admitted from [facility] to acute care. Nursing Note: Initialized on 05/02/25 14:07 - END OF NOTE v v v v v v v v v Sending and/or Receiving Nurses: Please use comment section below to note any information pertinent to the patient hand-off not included above. Information / Comments: Report received from: Pt discharged from swingbed to acute care
[2025-05-02] MEDS: Normal Saline Flush 10 ML SYR IVP ×2 (18:13→20:12)
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
--- NOTE | 2025-05-02 19:04 | PDOC.CMPRO ---
Date of service: 05/02/25 Time of Service: 19:05 Care Management Progress Note Progress Note Text Progress Note Text: Johnathon was transferred back to inpatient status today based on changes in his medical condition. He became febrile on 04/30/25 and blood cultures were drawn. One of the 2 sets was reported as positive and is growing gram negative rods. Johnathon also developed a rash, necessitating a change in antibiotics from Vancomycin to Linezolid. Levaquin was added to provide gram negative coverage as well. Once medically stable, Johnathon will be transitioned back to SB-1 status to complete antibiotic therapy. Discharge Potential Discharge Needs: Imaging/labs Anticipated Barriers to Discharge: Medical Status Patient/Family Education Needs: Review discharge instructions, discuss Ask Me Three Transportation: Private vehicle Plan: Johnathon will be transitioned back to SB-1 status when medically cleared to complete his course of IV antibiotics. His mother is working on finding housing for him for when he is medically ready for discharge. CM will follow and continue to assess for discharge needs. Social Determinants of Health Screening Will the Patient Participate in the Screening?: Declined to provide
[2025-05-02 19:17] VITALS: BP 115/84; PULSE 102; RESP 18; TEMP 36.2; O2SAT 96
[2025-05-02] MEDS: Melatonin 3 MG TAB 9 MG PO (20:10)
[2025-05-02] MEDS: Celecoxib 100 MG CAP 200 MG PO (20:10)
[2025-05-02] MEDS: Triamcinolone 0.1% CR 80 GM TUBE TP (20:12)
[2025-05-02] MEDS: LINEZOLID 600 MG/300 ML BAG 300 MG IVPB (21:31)
[2025-05-02 23:08] VITALS: BP 128/97; PULSE 80; RESP 16; TEMP 36.7; O2SAT 98
[2025-05-03 02:58] VITALS: BP 96/66; PULSE 74; RESP 14; TEMP 36.6; O2SAT 19
[2025-05-03 07:29] VITALS: BP 102/71; PULSE 74; RESP 16; TEMP 36.3; O2SAT 98
[2025-05-03] MEDS: Nicotine 14 MG/24 HR PATCH 21 MG TD (08:42)
[2025-05-03] MEDS: Buprenorphine/Naloxone 8 mg/2 mg FILM 1 EACH SL (08:45)
[2025-05-03] MEDS: Celecoxib 100 MG CAP 200 MG PO ×2 (08:46→20:23)
[2025-05-03] MEDS: cloNIDine 0.1 MG TAB PO ×3 (08:46→20:22)
[2025-05-03] MEDS: predniSONE 20 MG TAB PO (08:46)
[2025-05-03] MEDS: Loratidine 10 MG TAB 20 MG PO (08:47)
[2025-05-03] MEDS: hydrOXYzine HCL 25 MG TAB PO (08:47)
[2025-05-03] MEDS: LINEZOLID 600 MG/300 ML BAG 300 MG IVPB ×2 (08:48→22:06)
[2025-05-03] MEDS: Normal Saline Flush 10 ML SYR IVP ×3 (08:48→20:22)
[2025-05-03 10:45] VITALS: BP 101/76; PULSE 88; RESP 16; TEMP 36.5; O2SAT 97
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
[2025-05-03 12:12] LABS: Abs Immature Grans 0.05 10^3/uL (0.0-0.06); HCT 34.5 % (40.0-50.0); HGB 11.4 g/dL (13.5-17.5); MCH 29.6 pg (27.0-33.0); MCHC 33.0 % (32.0-36.0); MCV 90 fL (80-95); MPV 10.1 fL (8.0-11.0); Platelet Count 326 10^3/uL (130-400); RBC 3.85 10^6/uL (4.36-5.78); RDW 15.3 % (11.8-14.1); RDW-SD 50.9 fL; WBC 7.22 10^3/uL (4.4-10.8)
[2025-05-03 12:20] LABS: Magnesium 1.7 mg/dL (1.8-2.4)
[2025-05-03 12:26] LABS: ALT 269 U/L (16-63); AST 100 U/L (15-37); Albumin 2.9 g/dL (3.4-5.0); Alkaline Phosphatase 269 U/L (46-116); Anion Gap 4.7 mmol/L (3-11); BUN 17 mg/dL (7-18); Bilirubin, Total 0.3 mg/dL (0.2-1.0); CO2 32.3 mmol/L (21.0-32.0); Calcium 8.7 mg/dL (8.5-10.1); Chloride 101 mmol/L (98-107); Estimated GFR 114.93 (mL/min/1.73m2); Glucose 101 mg/dL (74-106); Potassium 4.2 mmol/L (3.5-5.1); Sodium 138 mmol/L (136-145); Total Protein 7.0 g/dL (6.4-8.2)
[2025-05-03 14:08] LABS: Immature Grans % 0.0 %
[2025-05-03 14:09] LABS: RBC Morphology Normal
[2025-05-03] MEDS: Triamcinolone 0.1% CR 80 GM TUBE TP ×2 (14:30→20:23)
[2025-05-03] MEDS: levoFLOXacin 750 MG/150 ML BAG 100 MG IVPB (14:31)
[2025-05-03 15:27] VITALS: BP 99/65; PULSE 86; RESP 16; TEMP 36.6; O2SAT 98
[2025-05-03] MEDS: MAGNESIUM SULFATE 2 GM/50 ML BAG IV_INF (18:35)
[2025-05-03 19:07] VITALS: BP 103/66; PULSE 82; RESP 18; TEMP 36.9; O2SAT 96
[2025-05-03] MEDS: Melatonin 3 MG TAB 9 MG PO (20:23)
[2025-05-03 23:15] VITALS: BP 97/65; PULSE 93; RESP 16; TEMP 36.7; O2SAT 97
[2025-05-04 03:53] VITALS: BP 100/60; PULSE 71; RESP 16; TEMP 36.5; O2SAT 97
[2025-05-04] MEDS: Loratidine 10 MG TAB 20 MG PO (09:02)
[2025-05-04] MEDS: Celecoxib 100 MG CAP 200 MG PO ×2 (09:02→20:16)
[2025-05-04] MEDS: Nicotine 14 MG/24 HR PATCH 21 MG TD (09:03)
[2025-05-04] MEDS: cloNIDine 0.1 MG TAB PO ×3 (09:03→20:16)
[2025-05-04] MEDS: predniSONE 20 MG TAB PO (09:03)
[2025-05-04] MEDS: Buprenorphine/Naloxone 8 mg/2 mg FILM 1 EACH SL (09:03)
[2025-05-04] MEDS: Normal Saline Flush 10 ML SYR IVP ×3 (09:05→20:15)
[2025-05-04 09:19] VITALS: BP 111/73; PULSE 77; RESP 16; TEMP 36.1; O2SAT 99
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
[2025-05-04] MEDS: LINEZOLID 600 MG/300 ML BAG 300 MG IVPB ×2 (11:07→22:14)
[2025-05-04] MEDS: levoFLOXacin 750 MG/150 ML BAG 100 MG IVPB (13:34)
[2025-05-04 20:10] VITALS: BP 99/70; PULSE 84; RESP 20; TEMP 36.7; O2SAT 97
[2025-05-04] MEDS: Triamcinolone 0.1% CR 80 GM TUBE TP (20:14)
[2025-05-04] MEDS: Melatonin 3 MG TAB 9 MG PO (20:16)
[2025-05-04 23:03] VITALS: BP 84/42; PULSE 72; RESP 16; TEMP 36.6; O2SAT 97
[2025-05-04 23:24] VITALS: BP 105/78
[2025-05-05 03:57] VITALS: PULSE 60; RESP 16; TEMP 36.6; O2SAT 98
[2025-05-05 07:26] VITALS: BP 110/81; PULSE 63; RESP 17; TEMP 36.6; O2SAT 97
[2025-05-05] MEDS: Buprenorphine/Naloxone 8 mg/2 mg FILM 1 EACH SL (08:06)
[2025-05-05] MEDS: Loratidine 10 MG TAB 20 MG PO (08:07)
[2025-05-05] MEDS: Nicotine 21 MG/24 HR PATCH TD (08:07)
[2025-05-05] MEDS: Celecoxib 100 MG CAP 200 MG PO ×2 (08:07→21:28)
[2025-05-05] MEDS: cloNIDine 0.1 MG TAB PO ×3 (08:07→21:29)
[2025-05-05] MEDS: Normal Saline Flush 10 ML SYR IVP ×5 (08:08→21:29)
[2025-05-05] MEDS: LINEZOLID 600 MG/300 ML BAG 300 MG IVPB ×2 (10:05→22:14)
[2025-05-05] MEDS: Triamcinolone 0.1% CR 80 GM TUBE TP ×2 (10:05→21:31)
[2025-05-05 11:23] VITALS: BP 107/78; PULSE 69; RESP 16; TEMP 36.7; O2SAT 99
[2025-05-05] MEDS: levoFLOXacin 750 MG/150 ML BAG 100 MG IVPB (14:37)
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
[2025-05-05 15:13] VITALS: BP 109/76; PULSE 76; RESP 16; TEMP 36.4; O2SAT 98
[2025-05-05 19:14] VITALS: BP 103/75; PULSE 71; RESP 18; TEMP 36.2; O2SAT 99
[2025-05-05 20:34] LABS: HCT 40.9 % (40.0-50.0); HGB 13.2 g/dL (13.5-17.5); MCH 29.3 pg (27.0-33.0); MCHC 32.3 % (32.0-36.0); MCV 91 fL (80-95); MPV 9.2 fL (8.0-11.0); Platelet Count 379 10^3/uL (130-400); RBC 4.50 10^6/uL (4.36-5.78); RDW 15.3 % (11.8-14.1); RDW-SD 50.7 fL; WBC 9.82 10^3/uL (4.4-10.8)
[2025-05-05 20:50] LABS: ALT 213 U/L (16-63); AST 84 U/L (15-37); Albumin 3.1 g/dL (3.4-5.0); Alkaline Phosphatase 256 U/L (46-116); Anion Gap 7.5 mmol/L (3-11); BUN 18 mg/dL (7-18); Bilirubin, Total 0.3 mg/dL (0.2-1.0); CO2 31.5 mmol/L (21.0-32.0); Calcium 8.9 mg/dL (8.5-10.1); Chloride 100 mmol/L (98-107); Estimated GFR 114.93 (mL/min/1.73m2); Glucose 92 mg/dL (74-106); Potassium 4.0 mmol/L (3.5-5.1); Sodium 139 mmol/L (136-145); Total Protein 7.3 g/dL (6.4-8.2)
[2025-05-05] MEDS: Melatonin 3 MG TAB 9 MG PO (21:28)
[2025-05-05 23:51] VITALS: BP 107/73; PULSE 66; RESP 15; TEMP 36.1; O2SAT 98
[2025-05-06 07:19] VITALS: BP 109/76; PULSE 66; RESP 17; TEMP 36.7; O2SAT 97
--- NOTE | 2025-05-06 08:53 | PDOC.CMPRO ---
Date of service: 05/06/25 Time of Service: 08:53 Care Management Progress Note Progress Note Text Progress Note Text: Johnathon was sitting up in bed when CM met with him. He was pleasant in interaction and easily engaged with CM. Johnathon developed a rash, presumably from Vancomycin, last week and was switched to Linezolid. Since Linezolid can be given orally, there was a suggestion that Johnathon might be able to be discharged home to complete the course of antibiotics orally. The provider contacted [facility] who agreed it would be an acceptable treatment option. Johnathon will likely be discharged tomorrow on Linezolid and levofloxacin. CM will contact Johnathon' pharmacy to ensure the medications will be covered. He will have zero copay for his antibiotics. CM met with Johnathon and his Mom Leesa and explained the new discharge plan. As Johnathon does not have stable housing at this time, there are some logistical issues to work out but discharge will be planned for tomorrow. Discharge Potential Discharge Needs: PCP F/U Appt Anticipated Barriers to Discharge: None Identified Patient/Family Education Needs: Review discharge instructions, discuss Ask Me Three Transportation: Private vehicle Plan: Johnathon will be transitioned back to SB-1 status when medically cleared to complete his course of IV antibiotics. His mother is working on finding housing for him for when he is medically ready for discharge. CM will follow and continue to assess for discharge needs. Social Determinants of Health Screening Will the Patient Participate in the Screening?: Declined to provide
[2025-05-06] MEDS: Buprenorphine/Naloxone 8 mg/2 mg FILM 1 EACH SL (09:19)
[2025-05-06] MEDS: Nicotine 21 MG/24 HR PATCH TD (09:19)
[2025-05-06] MEDS: Loratidine 10 MG TAB 20 MG PO (09:20)
[2025-05-06] MEDS: LINEZOLID 600 MG/300 ML BAG 300 MG IVPB ×2 (09:20→22:05)
[2025-05-06] MEDS: Normal Saline Flush 10 ML SYR IVP ×3 (09:20→20:24)
[2025-05-06] MEDS: cloNIDine 0.1 MG TAB PO ×3 (09:21→20:24)
[2025-05-06] MEDS: Celecoxib 100 MG CAP 200 MG PO ×2 (09:21→20:24)
[2025-05-06 11:16] VITALS: BP 99/76; PULSE 74; RESP 17; TEMP 36.5; O2SAT 99
[2025-05-06] MEDS: levoFLOXacin 750 MG/150 ML BAG 100 MG IVPB (14:14)
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
[2025-05-06 15:03] VITALS: BP 98/73; PULSE 70; RESP 17; TEMP 36.5; O2SAT 98
[2025-05-06 19:36] VITALS: BP 88/66; PULSE 85; RESP 17; TEMP 36.8; O2SAT 97
[2025-05-06] MEDS: Melatonin 3 MG TAB 9 MG PO (20:24)
[2025-05-06] MEDS: Triamcinolone 0.1% CR 80 GM TUBE TP (20:25)
[2025-05-06 23:31] VITALS: BP 103/76; PULSE 63; RESP 15; TEMP 36; O2SAT 97
[2025-05-07 03:02] VITALS: BP 93/64; PULSE 55; RESP 19; TEMP 36; O2SAT 97
[2025-05-07 07:21] LABS: Abs Immature Grans 0.11 10^3/uL (0.0-0.06); HCT 43.0 % (40.0-50.0); HGB 14.3 g/dL (13.5-17.5); Immature Grans % 1.1 %; MCH 30.0 pg (27.0-33.0); MCHC 33.3 % (32.0-36.0); MCV 90 fL (80-95); MPV 9.4 fL (8.0-11.0); Platelet Count 361 10^3/uL (130-400); RBC 4.76 10^6/uL (4.36-5.78); RDW 15.5 % (11.8-14.1); RDW-SD 50.9 fL; WBC 9.62 10^3/uL (4.4-10.8)
[2025-05-07 07:42] LABS: ALT 224 U/L (16-63); AST 110 U/L (15-37); Albumin 3.2 g/dL (3.4-5.0); Alkaline Phosphatase 245 U/L (46-116); Anion Gap 4.9 mmol/L (3-11); BUN 17 mg/dL (7-18); Bilirubin, Total 0.5 mg/dL (0.2-1.0); CO2 32.1 mmol/L (21.0-32.0); Calcium 9.5 mg/dL (8.5-10.1); Chloride 99 mmol/L (98-107); Estimated GFR 101.28 (mL/min/1.73m2); Glucose 92 mg/dL (74-106); Potassium 4.8 mmol/L (3.5-5.1); Sodium 136 mmol/L (136-145); Total Protein 7.6 g/dL (6.4-8.2)
[2025-05-07 07:43] LABS: C-Reactive Protein 0.53 mg/dL (<or=0.5); Magnesium 2.2 mg/dL (1.8-2.4)
[2025-05-07 07:44] VITALS: BP 100/70; PULSE 66; RESP 16; TEMP 36; O2SAT 98
[2025-05-07] MEDS: cloNIDine 0.1 MG TAB PO (09:09)
[2025-05-07] MEDS: Buprenorphine/Naloxone 8 mg/2 mg FILM 1 EACH SL (09:10)
[2025-05-07] MEDS: Loratidine 10 MG TAB 20 MG PO (09:10)
[2025-05-07] MEDS: LINEZOLID 600 MG/300 ML BAG 300 MG IVPB (09:11)
[2025-05-07] MEDS: Celecoxib 100 MG CAP 200 MG PO (09:11)
[2025-05-07] MEDS: Nicotine 21 MG/24 HR PATCH TD (09:11)
[2025-05-07] MEDS: Normal Saline Flush 10 ML SYR IVP (09:13)
[2025-05-07 11:14] VITALS: BP 84/64; PULSE 72; RESP 16; TEMP 35.9; O2SAT 98
[2025-05-07 11:32] VITALS: BP 120/84
--- NOTE | 2025-05-07 14:16 | PDOC.CMDIS ---
Date of service: 05/07/25 Time of Service: 14:16 LACE Index Scoring Tool Questions: Length of Stay (in days): 14 or more Was the patient admitted via the E.D.?: Yes Comorbidities: Liver or Renal Disease E.D. Visits: 4 Answers: Total Score: 19 Risk of Readmission: High Risk Care Management Discharge Plan Reason for Hospitalization: sepsis Discharge Plan: Johnathon will be discharged on oral antibiotics to complete a 6 week course. He will follow up with his PCP (follow up appointment 05/16/25 at 9 am) and plan of care and transport with his mother. Johnathon remains without a permanent residence however for the time being he will be with his grandmother. Patient/Family Education Needs: Review of discharge instructions, limitations, follow up plan and discuss Ask Me Three SDOH Health Related Social Needs: Health related social needs inadequate housing transpo insecurity material hardship house/econ circumstance lonely/isolated Health related social needs details homeless and needs resources
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
[2025-05-08 09:12] LABS: Fentanyl Scr w/Rfx Confirm Positive ng/mL (<1)
[2025-05-08 11:33] LABS: Norfentanyl Confirmation >200 ng/mL (<10)
== END 2025-05-07 13:22 | disposition home or self-care (01) | DRG 288 ==
PROVIDERS: Nurse Practitioner Acute Care; Admitting Provider Family Medicine; PCP Family Medicine; Responsible Provider Nurse Practitioner Family; Visit Provider Family Medicine
DX: I33.0 Acute and subacute infective endocarditis (principal); I26.90 Septic pulmonary embolism without acute cor pulmonale; R78.81 Bacteremia; Z59.01 Sheltered homelessness; B95.62 Methicillin resistant Staphylococcus aureus infection as the cause of diseases classified elsewhere; F11.90 Opioid use, unspecified, uncomplicated; Z79.899 Other long term (current) drug therapy; F41.9 Anxiety disorder, unspecified; G47.00 Insomnia, unspecified; E83.42 Hypomagnesemia; R74.01 Elevation of levels of liver transaminase levels; F14.90 Cocaine use, unspecified, uncomplicated; L27.0 Generalized skin eruption due to drugs and medicaments taken internally; T36.8X5A Adverse effect of other systemic antibiotics, initial encounter; B18.2 Chronic viral hepatitis C; S82.831D Other fracture of upper and lower end of right fibula, subsequent encounter for closed fracture with routine healing; X58.XXXD Exposure to other specified factors, subsequent encounter; G43.009 Migraine without aura, not intractable, without status migrainosus; I10 Essential (primary) hypertension; F17.290 Nicotine dependence, other tobacco product, uncomplicated; Z59.82 Transportation insecurity; Z59.87 Material hardship due to limited financial resources, not elsewhere classified
CPT/HCPCS: 00123; 36415; 80053; 80307; 80354; 85027; 87040; 83735; 85025; 86140; 87070; 99223; 99232; 99233; 99239; J1956; J2020; J3475; J7512

== ENCOUNTER 2025-05-10 10:52 | Outpatient (CLI) | payer MEDICAID, SELFPAY ==
[2025-05-10 11:58] LABS: Abs Immature Grans 0.02 10^3/uL (0.0-0.06); HCT 43.1 % (40.0-50.0); HGB 14.2 g/dL (13.5-17.5); Immature Grans % 0.2 %; MCH 29.7 pg (27.0-33.0); MCHC 32.9 % (32.0-36.0); MCV 90 fL (80-95); MPV 9.2 fL (8.0-11.0); Platelet Count 382 10^3/uL (130-400); RBC 4.78 10^6/uL (4.36-5.78); RDW 15.9 % (11.8-14.1); RDW-SD 52.0 fL; WBC 8.01 10^3/uL (4.4-10.8)
[2025-05-10 12:29] LABS: ALT 216 U/L (16-63); AST 107 U/L (15-37); Albumin 3.8 g/dL (3.4-5.0); Alkaline Phosphatase 239 U/L (46-116); Anion Gap 9.2 mmol/L (3-11); BUN 18 mg/dL (7-18); Bilirubin, Total 0.5 mg/dL (0.2-1.0); CO2 29.8 mmol/L (21.0-32.0); Calcium 9.5 mg/dL (8.5-10.1); Chloride 101 mmol/L (98-107); Estimated GFR 101.28 (mL/min/1.73m2); Glucose 100 mg/dL (74-106); Potassium 4.4 mmol/L (3.5-5.1); Sodium 140 mmol/L (136-145); Total Protein 8.3 g/dL (6.4-8.2)
[2025-05-10 12:33] LABS: C-Reactive Protein < 0.50 mg/dL (<or=0.5)
== END 2025-05-10 10:53 | disposition home or self-care (01) ==
LOC: LBO 10:53
PROVIDERS: PCP Family Medicine; Visit Provider Family Medicine
DX: R78.81 Bacteremia (principal); B95.62 Methicillin resistant Staphylococcus aureus infection as the cause of diseases classified elsewhere
CPT/HCPCS: 36415; 80053; 85025; 86140

== ENCOUNTER 2025-05-28 09:53 | Outpatient (CLI) | payer MEDICAID, SELFPAY ==
[2025-05-28 09:17] LABS: Abs Immature Grans 0.01 10^3/uL (0.0-0.06); HCT 41.8 % (40.0-50.0); HGB 13.9 g/dL (13.5-17.5); Immature Grans % 0.2 %; MCH 30.3 pg (27.0-33.0); MCHC 33.3 % (32.0-36.0); MCV 91 fL (80-95); MPV 9.7 fL (8.0-11.0); Platelet Count 252 10^3/uL (130-400); RBC 4.58 10^6/uL (4.36-5.78); RDW 16.0 % (11.8-14.1); RDW-SD 53.3 fL; WBC 4.83 10^3/uL (4.4-10.8)
[2025-05-28 10:56] LABS: C-Reactive Protein < 0.50 mg/dL (<or=0.5)
== END 2025-05-28 09:54 | disposition home or self-care (01) ==
LOC: LBO 09:53
PROVIDERS: PCP Family Medicine; Visit Provider Family Medicine
DX: R41.89 Other symptoms and signs involving cognitive functions and awareness (principal); D64.9 Anemia, unspecified
CPT/HCPCS: 36415; 85025; 86140

== ENCOUNTER 2025-08-24 11:28 | Emergency (ER) | payer MEDICAID, SELFPAY ==
[2025-08-24 11:29] VITALS: BP 128/85; PULSE 77; RESP 18; TEMP 36.9; O2SAT 98
--- NOTE | 2025-08-24 11:30 | RT.EKG_ITS ---
APPROVED REPORT Exam: Resting ECG Reason for Exam: SOB Patient Location: E HR:75 bpm ECG Measurements Heart Rate 75 AXIS CA 158 P 57 QRSd 98 QRS 52 QT 403 T 23 QTc 449 Conclusion Sinus rhythm...normal P axis, V-rate 60- 99 No Occlusion [place]
[2025-08-24 11:31] VITALS: BP 128/85; PULSE 77; RESP 18; TEMP 36.9; O2SAT 98
--- NOTE | 2025-08-24 11:45 | DI.RAD_ITS ---
Exam(s) XR CHEST 2V PA LATERAL EXAM: XR CHEST 2V PA LATERAL CLINICAL HISTORY: SOB TECHNIQUE: 2D digital imaging was performed of the chest. Two images were obtained. PA and lateral views were obtained. COMPARISON: CR,XR XR PORTABLE CHEST AP from 04/10/2025 CR,XR XR PORTABLE CHEST AP POST LINE from 04/18/2025 CR,XR XR PORTABLE CHEST AP POST LINE from 04/18/2025 FINDINGS: MEDIASTINUM: Normal. HEART: Normal. PULMONARY VASCULATURE: Normal. LUNGS: Clear. PLEURAL SPACE: No pleural effusion or pneumothorax. BONE:Within normal limits for the patient's age. OTHER FINDINGS:Normal. IMPRESSION: 1. No acute pulmonary findings. 2. The preliminary [facility] report was reviewed. DATA REPOSITORY: RADIATION DOSE DELIVERED:
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
[2025-08-24 12:32] LABS: Abs Immature Grans 0.02 10^3/uL (0.0-0.06); HCT 41.3 % (40.0-50.0); HGB 15.2 g/dL (13.5-17.5); Immature Grans % 0.2 %; MCH 33.7 pg (27.0-33.0); MCHC 36.8 % (32.0-36.0); MCV 92 fL (80-95); MPV 9.9 fL (8.0-11.0); Platelet Count 305 10^3/uL (130-400); RBC 4.51 10^6/uL (4.36-5.78); RDW 14.2 % (11.8-14.1); RDW-SD 47.8 fL; WBC 9.90 10^3/uL (4.4-10.8)
[2025-08-24 12:49] LABS: Magnesium 2.1 mg/dL (1.6-2.6)
[2025-08-24 12:51] LABS: ALT 22 U/L (10-49); AST 14 U/L (<34); Albumin 4.3 g/dL (3.2-5.0); Alkaline Phosphatase 97 U/L (46-116); Anion Gap 6.2 mmol/L (3-11); BUN 11 mg/dL (9-23); Bilirubin, Total 0.40 mg/dL (0.2-1.2); CO2 28.8 mmol/L (20.0-31.0); Calcium 9.0 mg/dL (8.3-10.6); Chloride 105 mmol/L (98-107); Glucose 93 mg/dL (74-106); Potassium 3.8 mmol/L (3.5-5.1); Sodium 140 mmol/L (136-145); Total Protein 7.5 g/dL (5.7-8.2)
[2025-08-24 13:03] LABS: Troponin I < 3 ng/L (<54)
[2025-08-24 13:05] LABS: D-Dimer 518 ng/mlFEU (<500)
--- NOTE | 2025-08-24 13:15 | DI.VRAD_ITS ---
PROCEDURE INFORMATION: Exam: XR Chest Exam date and time: 08/24/2025 12:45 PM Age: 34 years old Clinical indication: Shortness of breath TECHNIQUE: Imaging protocol: Radiologic exam of the chest. Views: 2 views. COMPARISON: XR PORTABLE CHEST AP POST LINE 04/18/2025 7:51 PM FINDINGS: Lungs: Unremarkable. No consolidation. Pleural spaces: Unremarkable. No pleural effusion. No pneumothorax. Heart/Mediastinum: Unremarkable. No cardiomegaly. Bones/joints: Unremarkable. IMPRESSION: No acute findings. Dictated and Authenticated by: Alka Eng MD. Orderin Michelle Mir MD
[2025-08-24 13:46] LABS: Troponin I < 3 ng/L (<54)
[2025-08-24 14:26] VITALS: BP 118/73; PULSE 88; RESP 15; O2SAT 97
== END 2025-08-24 14:27 | disposition home or self-care (01) ==
PROVIDERS: Emergency Provider Registered Nurse Emergency; PCP Family Medicine
DX: R07.9 Chest pain, unspecified (principal); R06.02 Shortness of breath; Z59.10 Inadequate housing, unspecified; Z59.82 Transportation insecurity; Z59.87 Material hardship due to limited financial resources, not elsewhere classified; Z59.89 Other problems related to housing and economic circumstances; Z60.8 Other problems related to social environment
CPT/HCPCS: 36415; 80053; 93005; 99284; 71046; 83735; 84484; 85025; 85379; 93010